=== PATIENT | male | born 1955 | race Caucasian/White ===

== ENCOUNTER 2023-11-17 06:28 | Day surgery (SDC) | payer OTHER, SELFPAY ==
[2023-11-03 08:12] VITALS: BMI 24.7
[2023-11-03 09:01] LABS: Hematocrit 45.4 % (39.0-52.0); Hemoglobin 14.9 g/dL (13.0-18.0); Mean Corp Hgb Conc. 32.8 g/dL (33.0-37.0); Mean Corpuscular Hgb 30.3 pg (27.0-31.0); Mean Corpuscular Volume 92.5 fL (80.0-94.0); Mean Platelet Volume 9.3 fL (7.4-10.4); Platelet Count 218 10^3/uL (130-400); Red Blood Cell Count 4.91 10^6/uL (4.70-6.10); Red Cell Dist. Width 11.9 % (11.5-14.5); White Blood Cell Count 4.1 10^3/uL (4.8-10.8)
[2023-11-03 09:02] LABS: Urine Albumin Negative (Neg - Trace); Urine Bilirubin Negative (Negative); Urine Character Clear (Clear); Urine Color Yellow; Urine Glucose Negative (Negative); Urine Ketone Negative (Negative); Urine Leukocyte Negative (Negative); Urine Nitrite Negative (Negative); Urine Occult Blood Negative (Negative); Urine Specific Gravity 1.015 (<1.030); Urine Urobilinogen Negative (Neg - 1+)
[2023-11-03 09:09] LABS: INR 0.99; PT 12.9 Sec (11.4-14.6)
[2023-11-03 09:10] LABS: APTT 34.6 Sec (23.4-35.0)
[2023-11-03 09:15] LABS: Blood Urea Nitrogen 30 mg/dl (9-20); Calcium 9.6 mg/dl (8.4-10.2); Carbon Dioxide 27 mmol/L (22-30); Chloride 102 mmol/L (98-107); Estimated Creatinine Clearance 59 ml/min; Glucose 86 mg/dl (70-99); Potassium 4.5 mmol/L (3.5-5.1); Sodium 137 mmol/L (135-145); eGFR > 60.00
--- NOTE | 2023-11-10 08:14 | CM ---
Patient is scheduled for a TURP on 11/17/23. Spoke with patient prior to surgery via telephone to complete case management assessment and assess for discharge planning needs. Patient reports that he lives alone in a two story home. There are four
steps to enter and a flight of steps to the second floor. He currently functions independently. He has no DME and has never had VN services. He has a prescription plan and uses [facility] in [place].
PCP is Krish Walters
Discussed discharge plans. Patient plans to return home at discharge. He will not have anyone staying with him. He has no discharge planning concerns at this time. Discussed possible need for VN services. Patient doesn't feel these services will be
needed and states but if services are needed, he selects VN for services. Patient did state that he is concerned about out of pocket expenses and would want to know VN benefits before accepting services.
Patient states that he lives very close to the hospital and plans to walk to/from the hospital when he has surgery. Surgeon's office told him that he can do this as long as the hospital allows him to walk home after surgery. If not allowed to do
this, he may need to use Uber or Lyft.
[place] text sent to VN liaison, Antonella Melgar, alerting her to surgery date and possible need for VN and request to check benefits.
--- NOTE | 2023-11-12 08:44 | PTCARENOTE ---
Abnormal ECG reviewed by Dr. Lamas; no further actions requested.
--- NOTE | 2023-11-16 14:24 | VNURNOTE ---
Home Health Liaison spoke with patient at 1415 by phone to discuss [facility] nurse visits and possible need following surgery.
Patient has had a catheter in past and does not anticipate need of VN at discharge.
Liaison will continue to follow and offer [facility] at discharge as needed.
[2023-11-17] VITALS (14 sets, daily range): BP systolic 106–132; BP diastolic 55–79; BMI 24.7
[2023-11-17] MEDS: NORMOSOL-R 1000 IV (07:41)
--- NOTE | 2023-11-17 10:55 | W.IMMPOSTOP ---
Surgical Immed Post Op Note
-
Primary Surgeon: Eduardofer
Assisting Surgeon: none
Pre-op Diagnosis:BPH
Post-op Diagnosis: BPH
Procedure Performed: TURP
Anesthesia Type: gen
Specimen / Cultures: prostate chips
Estimated Blood Loss: 100cc
Complications: none
Operative Findings: obstructive prostate
[2023-11-17] MEDS: LR 1000 IV (12:05)
--- NOTE | 2023-11-17 13:16 | PTCARENOTE ---
Pt arrived to [address] [place] [address] s/p [facility]. Pt has 3-way Calix CBI infusing, draining clear, and IVF infusing. Pt states no pain at this time. Pt oriented to call sandra and room, bed locked and in lowest position. Call sandra within reach.
[2023-11-17] MEDS: TYLENOL 650 MG PO (18:26)
[2023-11-17] MEDS: PERCOCET 5/325 1 TABLET PO (20:57)
--- NOTE | 2023-11-17 23:00 | PTCARENOTE ---
Pt arrived to unit from PACU, VSS, on 3L O2, fluids infusing, neurovascular intact PT AAOX3, able to make needs known, denies pain at this time, purewick set up, pt able to void. Pt reportedshe had a purse on previous floor, daughter called at [facility]
and reports she has the purse with her.
[2023-11-18 03:35] VITALS: BP 112/50
[2023-11-18 05:21] LABS: Hemoglobin 11.1 g/dL (13.0-18.0)
[2023-11-18 05:51] LABS: Blood Urea Nitrogen 19 mg/dl (9-20); Calcium 8.4 mg/dl (8.4-10.2); Carbon Dioxide 28 mmol/L (22-30); Chloride 106 mmol/L (98-107); Estimated Creatinine Clearance 59 ml/min; Glucose 118 mg/dl (70-99); Potassium 3.8 mmol/L (3.5-5.1); Sodium 136 mmol/L (135-145); eGFR > 60.00
--- NOTE | 2023-11-18 06:14 | PTCARENOTE ---
CBI clamped at 0600 per order, yellow clear yellow throughout shift
[2023-11-18 07:00] VITALS: BP 101/52
[2023-11-18] MEDS: FLOMAX 0.400000000000000022 MG PO (07:43)
--- NOTE | 2023-11-18 08:39 | W.PN.URO.CBU ---
Today's Communication / Plan
-
TOV
Discharge
Assessment / Plan
-
68M POD 1 s/p TURP
Cal[place]jas out this AM for trial of void
Discharge after voiding without difficulty
Diagnosis
-
Date of Service: November 18, 2023
-
Patient Diagnosis:
BPH
Post Op Day: 1 s/p TURP
Subjective
-
tolerated callejas well
No issues overnight
Objective
-
Vital Signs
Temp Pulse Resp BP Pulse Ox
97.9 F 51 12 101/52 94
11/18/23 07:00 11/18/23 07:00 11/18/23 07:00 11/18/23 07:00 11/18/23 07:00
Intake and Output
11/17/23 11/18/23 11/19/23
06:59 06:59 06:59
Intake Total 1540 / 1540
Output Total 8700 / 8700
Balance -7160 / -7160
Intake:
Oral fluids 1440 / 1440
IV fluids (Total) 100 / 100
normosol 100 / 100
Output:
Urine, Callejas 7000 / 7000
True Urine Output from CBI 1700 / 1700
Laboratory Results
11/18/23 04:43
11/18/23 04:43
Physical Exam
-
General - well developed, well nourished, no acute distress
Chest - clear bilaterally
Abdomen - soft, non-tender
Callejas in place, clear pink
Skin - warm & dry with no rash
Neuro - AOx3, no motor deficits
Extremities - no clubbing, no cyanosis, no edema
--- NOTE | 2023-11-18 10:15 | CM ---
CM following re: discharge planning.
Reviewed pt's chart, met with pt.
Pt is a 68 year old male, admitted with SDC status and primary dx of POD 1 s/p TURP. Per Urology, Calix out this AM for trial of void and pt will be discharged today if voiding without difficulties.
Pt reports he lives alone in a 2SH, 3 steps to enter, has 4 supportive children. Pt described himself as independent in all areas [employer], drives, retired.
Discharge order noted. Pt is aware and he stated he earnest, drive home, his car is parked ion the parking lot.
PCP: Krish Walters
Pharmacy: [facility]
D/C plan: home with no needs. Pt will drive home.
[2023-11-18 11:00] VITALS: BP 123/81
== END 2023-11-18 11:25 | disposition home or self-care (01) ==
LOC: SDS 06:28
PROVIDERS: ATTENDING PHYSICIAN Urology; FAMILY PHYSICIAN Family Medicine
DX: N40.0 Benign prostatic hyperplasia without lower urinary tract symptoms (principal)
CPT/HCPCS: 52601; 88305; 36415; 80048; 81003; 85014; 85018; 85027; 85610; 85730; 93005

== ENCOUNTER → 2023-12-04 15:40 | Outpatient (REF) | payer OTHER, SELFPAY | LOC: HWRAD 15:40 | PROVIDERS: ATTENDING PHYSICIAN Student in an Organized Health Care Education/Training Program | DX: M76.61 Achilles tendinitis, right leg (principal) | CPT/HCPCS: 73610 ==

== ENCOUNTER 2023-12-22 06:39 | Inpatient (IN) | payer OTHER, SELFPAY ==
[2023-12-22] VITALS (28 sets, daily range): BP systolic 10–155; BP diastolic 56–97; BMI 25.0
--- NOTE | 2023-12-22 01:00 | ED.GENMED ---
History of Present Illness
<Devendra Corea MD - Last Filed: 12/22/23 11:37>
General
Chief Complaint: Abdominal Pain
Source: patient
Exam Limitations: none
Time Seen by Provider: 12/22/23 00:53
Nursing documentation reviewed up to this point in time: agreed with
Travel History
Have you had any contact with someone who has COVID-19?: No
Do you have any symptoms of coronavirus? Fever > 100 degrees, chills, cough, shortness of breath, sore throat, loss of taste or smell, muscle aches, or headache?: No
History of Present Illness
History of Present Illness:
Patient with history of colectomy secondary to colon cancer 15 years ago and recent TURP procedure 5 weeks ago, presents to ED secondary to sudden onset of left-sided abdominal pain with distention, starting 12 hours ago. Abdominal pain described
as sharp, nonradiating, without any alleviating or exacerbating factors. Denies fever or chills. Denies vomiting. Denies diarrhea. Denies trauma. Denies back pain. Denies difficulty with urination. Denies previous history of similar symptoms.
Denies recent change in medications or diet.
Past History
<Devendra Corea MD - Last Filed: 12/22/23 11:37>
Past History
ED Past Medical History: Asthma and Other (Patient has had a history of urinary retention from previous surgeries.)
ED Past Surgical History: Bowel resection (for colon CA) and Other
Social History
Tobacco: Non-smoker
Alcohol: Occasional
Personal:
Living: alone
Employment: Employed
Family History
Family History: Other
Review of Systems
<Devendra Corea MD - Last Filed: 12/22/23 11:37>
Review of Systems
Allergies reviewed?: Yes
All Other Systems: ROS reviewed and negative except as documented in HPI and ROS
Constitutional: Reports no symptoms
EENT: Reports no symptoms
Respiratory: Reports no symptoms
Cardiac: Reports no symptoms
ABD/GI: Reports abdominal pain; Denies nausea, vomiting or diarrhea
Musculoskeletal: Reports no symptoms
Skin: Reports no symptoms
Neurological: Reports no symptoms
Phy Exam
<Devendra Corea MD - Last Filed: 12/22/23 11:37>
Physical Exam
Physical Exam:
Physical Exam
General: moderate painful distress, not acutely ill. afebrile
Head: nc/at. eomi
Neck: supple. normal range of motion.
Heart: s1/s2 regular rate and rhythm, no murmur. equal radial pulses.
Lungs: no acute respiratory distress. clear bilaterally
Abdomen: normal bowel sounds. moderate LLQ tenderness to palpation with guarding. mild distention noted.
Neuro: alert and oriented. no focal neurological deficits
Skin: no rash
Psychiatric: well kept. interactive and cooperative
Extremities: no edema. no calf tenderness
Course
<Devendra Corea MD - Last Filed: 12/22/23 11:37>
Orders/Labs/Results
Orders:
Orders
12/22/23 00:56
HYDROmorphone [Dilaudid] 0.5 mg IV NOW STA
CR Obstruct Series W/pa Chest Urgent
Comment:
Reason For Exam: abd pain
12/22/23 00:57
0.9% Sodium Chloride 500 ml [Nss] 500 ml IV BOLUS
12/22/23 01:10
Complete Blood Count/With Diff Urgent
Comprehensive Metabolic Panel Urgent
Lactic Acid Q4H
Comment: CANCEL 2nd LACTIC ACID IF 1st LACTIC ACID IS LESS THAN 2
12/22/23 01:36
CT Abd/pel W Iv And Oral Contr Urgent
Comment:
Reason For Exam: abdominal pain w bloating
Iohexol [Omnipaque] See Protocol PO NOW STA
12/22/23 01:38
HYDROmorphone [Dilaudid] 0.5 mg IV NOW STA
12/22/23 04:37
HYDROmorphone [Dilaudid] 0.5 mg IV NOW STA
Ondansetron Injectable [Zofran] 4 mg IV NOW STA
12/22/23 Breakfast
NPO
Allow oral meds: No
Allow clear liquids: No
NPO with Ice Chips: No
12/22/23 06:27
Admit/Transfer Patient As Directed
Co-Sign Provider:
Level of Care: Inpatient admission
Assign to:: Medical/Surgical
Physician / Group: dr morris
Diagnosis: sigmoid volvulus
Reason for Hospitalization: ng tube, poss OR
Expected length of stay greater than two midnights?: Yes
ELOS- Estimated Length of Stay in days: 4
I certify the patient meets the requirements for IP care: Yes
12/22/23 06:31
Code Status As Directed
Resuscitation Status: Full Code
12/22/23 07:34
0.9% Sodium Chloride 1000 ml [Nss] 1,000 ml IV 125 mls/hr
HYDROmorphone [Dilaudid] 0.5 mg IV Q2HPRN PRN
Ondansetron Injectable [Zofran] 4 mg IV Q6HPRN PRN
12/22/23 07:34
Activity As Directed
Activity Level: Out of Bed-Early Mobility
Bladder Scan As Directed
Follow Bladder Retention/Intermittent Cath Algorithm?: Yes
Frequency: Per Retention Algorithm
Intake/ Output As Directed
Frequency: Per unit guidelines
NG Tube [Gastrointestinal Tubes] As Directed
Type: [place] sump
To suction?: Yes
Type of suction: Low intermittent
Irrigate tube?: Yes
Irrigant: Tap Water
Frequency: Q4H
Amount in mls: 30
Irrigation Directions: Irrigate Q4H and PRN
Pneumatic Compression Sleeves As Directed
Type: Thigh high
Straight Cath As Directed
Frequency: Per Retention Algorithm
Additional Instructions: straight cath as needed per acute urinary retention algorithm for 24 hrs
Additional Instructions: for bladder scan greater than 400 mL
Vital Signs As Directed
Frequency: Per unit guidelines
DX Deep Vein Thrombosis Video Routine
12/22/23 08:00
Phenol 1.4% [place] [Chloraseptic/Sore Throat [place]] See Dose Instructions PO Q2HPRN PRN
12/23/23 06:00
Complete Blood Count/No Diff IN AM
Comprehensive Metabolic Panel IN AM
Abnormal Lab Results
12/22/23
01:10
Absolute Neuts (auto) 7.1 H 10^3/uL
(1.4-6.5)
Absolute Lymphs (auto) 1.0 L 10^3/uL
(1.2-3.4)
Neutrophils % 81.8 H %
(42.2-75.2)
Lymphocytes % 11.4 L %
(20.5-51.1)
BUN 25 H mg/dl
(9-20)
Glucose 119 H mg/dl
(70-99)
12/22/23 01:10
12/22/23 01:10
Vital Signs
Initial and Last Documented VS:
Initial Vital Signs
Temp Pulse Resp BP Pulse Ox
97.8 F 89 18 122/87 97
12/22/23 00:22 12/22/23 00:22 12/22/23 00:22 12/22/23 00:22 12/22/23 00:22
Last Documented Vital Signs
Temp Pulse Resp BP Pulse Ox
97 F 82 10 136/82 98
12/22/23 10:40 12/22/23 11:15 12/22/23 11:15 12/22/23 11:15 12/22/23 11:15
<Derrick Hunter, DO - Last Filed: 12/22/23 06:07>
Orders/Labs/Results
Orders:
Orders
12/22/23 00:56
HYDROmorphone [Dilaudid] 0.5 mg IV NOW STA
CR Obstruct Series W/pa Chest Urgent
Comment:
Reason For Exam: abd pain
12/22/23 00:57
0.9% Sodium Chloride 500 ml [Nss] 500 ml IV BOLUS
12/22/23 01:10
Complete Blood Count/With Diff Urgent
Comprehensive Metabolic Panel Urgent
Lactic Acid Q4H
Comment: CANCEL 2nd LACTIC ACID IF 1st LACTIC ACID IS LESS THAN 2
12/22/23 01:36
CT Abd/pel W Iv And Oral Contr Urgent
Comment:
Reason For Exam: abdominal pain w bloating
Iohexol [Omnipaque] See Protocol PO NOW STA
12/22/23 01:38
HYDROmorphone [Dilaudid] 0.5 mg IV NOW STA
12/22/23 04:37
HYDROmorphone [Dilaudid] 0.5 mg IV NOW STA
Ondansetron Injectable [Zofran] 4 mg IV NOW STA
12/22/23 Breakfast
NPO
Allow oral meds: No
Allow clear liquids: No
NPO with Ice Chips: No
12/22/23 06:27
Admit/Transfer Patient As Directed
Co-Sign Provider:
Level of Care: Inpatient admission
Assign to:: Medical/Surgical
Physician / Group: dr morris
Diagnosis: sigmoid volvulus
Reason for Hospitalization: ng tube, poss OR
Expected length of stay greater than two midnights?: Yes
ELOS- Estimated Length of Stay in days: 4
I certify the patient meets the requirements for IP care: Yes
12/22/23 06:31
Code Status As Directed
Resuscitation Status: Full Code
12/22/23 07:34
0.9% Sodium Chloride 1000 ml [Nss] 1,000 ml IV 125 mls/hr
HYDROmorphone [Dilaudid] 0.5 mg IV Q2HPRN PRN
Ondansetron Injectable [Zofran] 4 mg IV Q6HPRN PRN
12/22/23 07:34
Activity As Directed
Activity Level: Out of Bed-Early Mobility
Bladder Scan As Directed
Follow Bladder Retention/Intermittent Cath Algorithm?: Yes
Frequency: Per Retention Algorithm
Intake/ Output As Directed
Frequency: Per unit guidelines
NG Tube [Gastrointestinal Tubes] As Directed
Type: [place] sump
To suction?: Yes
Type of suction: Low intermittent
Irrigate tube?: Yes
Irrigant: Tap Water
Frequency: Q4H
Amount in mls: 30
Irrigation Directions: Irrigate Q4H and PRN
Pneumatic Compression Sleeves As Directed
Type: Thigh high
Straight Cath As Directed
Frequency: Per Retention Algorithm
Additional Instructions: straight cath as needed per acute urinary retention algorithm for 24 hrs
Additional Instructions: for bladder scan greater than 400 mL
Vital Signs As Directed
Frequency: Per unit guidelines
DX Deep Vein Thrombosis Video Routine
12/22/23 08:00
Phenol 1.4% [place] [Chloraseptic/Sore Throat [place]] See Dose Instructions PO Q2HPRN PRN
12/23/23 06:00
Complete Blood Count/No Diff IN AM
Comprehensive Metabolic Panel IN AM
Abnormal Lab Results
12/22/23
01:10
Absolute Neuts (auto) 7.1 H 10^3/uL
(1.4-6.5)
Absolute Lymphs (auto) 1.0 L 10^3/uL
(1.2-3.4)
Neutrophils % 81.8 H %
(42.2-75.2)
Lymphocytes % 11.4 L %
(20.5-51.1)
BUN 25 H mg/dl
(9-20)
Glucose 119 H mg/dl
(70-99)
12/22/23 01:10
12/22/23 01:10
Vital Signs
Initial and Last Documented VS:
Initial Vital Signs
Temp Pulse Resp BP Pulse Ox
97.8 F 89 18 122/87 97
12/22/23 00:22 12/22/23 00:22 12/22/23 00:22 12/22/23 00:22 12/22/23 00:22
Last Documented Vital Signs
Temp Pulse Resp BP Pulse Ox
97 F 82 10 136/82 98
12/22/23 10:40 12/22/23 11:15 12/22/23 11:15 12/22/23 11:15 12/22/23 11:15
<Devendra Corea MD - Last Filed: 12/22/23 11:37>
MDM/Problems Addressed
MDM/Problems Addressed:
X-ray: air fluid levels with dilated loops of bowel. Will obtain CT abd/pel.
<Derrick Hunter DO - Last Filed: 12/22/23 06:07>
*Critical Care Note
Total Time (30-74mins, 75-104mins- exclusive of procedures): Not Applicable
<Derrick Hunter DO - Last Filed: 12/22/23 06:07>
Update Note
Update Note:
Care of patient was transitioned pending CT. Radiology called indicating concern for sigmoid volvulus. At this time, discussed case with colorectal surgery. He assessed the CT scan. Although patient has had no vomiting, the bladder looks
distended. He recommended NG tube and keeping n.p.o. Will admit
ED Attending Note
<Devendra Corea MD - Last Filed: 12/22/23 11:37>
-
Portions of this chart may have been created with voice recognition software.� Occasional wrong word or��sound alike� substitutions may have occurred due to the inherent limitations of voice recognition software.
Discharge Plan
Departure
Patient Disposition: Admit
Date of Disposition: 12/22/23
Time of Disposition: 06:06
Admit to: Med/Surg
Presentation/result/management discussed w/ accepting MD/DO: Colorectal Surgery
Discharge Problem:
Volvulus of sigmoid colon
Interventions
Interventions:
*Risk Screen - Suicide Last Done: 12/22/23 00:22
*General Assessment Last Done: 12/22/23 00:22
*Neglect/Abuse Screening Last Done: 12/22/23 00:22
ED- Fall Risk Assessment Last Done: 12/22/23 00:22
*ED COVID-19 Vaccine History Last Done: 12/22/23 00:22
*Nursing Disposition Last Done: 12/22/23 09:20
AL-Sdocys-Ocbfycgkhd Assessment Last Done: 12/22/23 06:55
Discharge Date and Time
Discharge Date/Time: 12/22/23 09:27
[2023-12-22] MEDS: DILAUDID 0.5 MG IV ×6 (01:11→23:57)
[2023-12-22] MEDS: NSS 500 IV (01:11)
[2023-12-22 01:31] LABS: % Basophils 0.3 % (0-2); % Immature Granulocytes 0.2 % (0-0.5); % Lymphocytes 11.4 % (20.5-51.1); % Monocytes 6.3 % (1.7-9.3); % Neutrophils 81.8 % (42.2-75.2); Absolute Monocytes 0.5 10^3/uL (0.1-0.6); Absolute Neutrophils 7.1 10^3/uL (1.4-6.5); Hematocrit 42.6 % (39.0-52.0); Hemoglobin 14.6 g/dL (13.0-18.0); Mean Corp Hgb Conc. 34.3 g/dL (33.0-37.0); Mean Corpuscular Hgb 30.2 pg (27.0-31.0); Mean Platelet Volume 9.2 fL (7.4-10.4); Nucleated Red Blood Cells % 0 % (-); Platelet Count 184 10^3/uL (130-400); Red Blood Cell Count 4.84 10^6/uL (4.70-6.10); Red Cell Dist. Width 12.2 % (11.5-14.5); White Blood Cell Count 8.6 10^3/uL (4.8-10.8)
[2023-12-22 01:44] LABS: Lactic Acid 1.6 mmol/L (0.7-2.0)
[2023-12-22] MEDS: OMNIPAQUE 50 ML PO (01:47)
[2023-12-22 01:50] LABS: ALT (SGPT) 17 U/L (0-50); AST (SGOT) 29 U/L (17-59); Alkaline Phosphatase 89 U/L (38-126); Blood Urea Nitrogen 25 mg/dl (9-20); Calcium 9.6 mg/dl (8.4-10.2); Carbon Dioxide 24 mmol/L (22-30); Chloride 102 mmol/L (98-107); Estimated Creatinine Clearance 59 ml/min; Glucose 119 mg/dl (70-99); Sodium 137 mmol/L (135-145); Total Bilirubin 0.8 mg/dl (0.2-1.3); Total Protein 6.5 g/dl (6.3-8.2); eGFR > 60.00
[2023-12-22] MEDS: ZOFRAN 4 MG IV (04:45)
--- NOTE | 2023-12-22 06:36 | HPS.HSE ---
Addendum entered and electronically signed by VIRAL Garcia 01/07/24 19:09:
medication dosage were not known at time of H+P.
Original Note:
Family Physician
-
Family Physician: Krish Walters
Chief Complaint
-
abd pain, bloat
History of Present Illness
68 yo male with history of colectomy secondary to colon cancer 15 years ago and recent TURP procedure 5 weeks ago, presents to ED secondary to sudden onset of left-sided abdominal pain with distention, starting 12 hours ago. Abdominal pain
described as sharp, nonradiating, without any alleviating or exacerbating factors. Denies fever or chills. Denies vomiting. Denies diarrhea. Denies trauma. Denies back pain. Denies difficulty with urination. Denies previous history of similar
symptoms. Denies recent diet changes. Had first f/u appt with urologist thursday and started on myrbetric. Only took one dose 12/20
Normal BM 12/19 none since. No flatus.
CT abd shows sigmoid volvulus/close loop colonic obstruction
NG tube placed per surgery recommendation (not much out yet)
Medical History
Past Medical History
Past Medical History: Reports Cancer (colon cancer, skin ca) and Other (ADHD,BPH)
Past Surgical History: Reports Bowel Resection (early for colon ca) and Urological (11/17/23 TURP)
Additional Past Surgical History:
MOHS surgery for skin ca (many)
Social History
Alcohol: None
Drug: None
Personal:
Family History
Family History: Cancer (mother colon ca)
Allergies / Home Medications
Allergies reflects when Allergies were last updated in [employer].
Home Medications with original date entered in [employer]
Allergy/Medication List:
Allergies
Allergy/AdvReac Type Severity Reaction Status Date / Time
No Known Allergies Allergy Verified 11/17/23 07:25
Home Medications
med rec not completed at this time
Concerta
Myrbetriq
Review of Systems
-
History Source: Patient
A 12 point ROS was completed and negative except as noted: Yes
Constitutional: Reports See HPI
EENT: Reports No Symptoms
Respiratory: Reports No Symptoms
Cardiac: Reports No Symptoms
Abdomen/GI: Reports Abdominal Pain and Other (abd distention)
: Reports No Symptoms
Musculoskeletal: Reports No Symptoms
Skin: Reports No Symptoms
Neurological: Reports No Symptoms
Endocrine: Reports No Symptoms
Hematologic/Lymphatic: Reports No Symptoms
Psych: Reports No Symptoms
Physical Exam
Vital Signs
Vital Signs
Temp Pulse Resp BP Pulse Ox
97.8 F 89 18 135/94 96
12/22/23 00:22 12/22/23 00:22 12/22/23 00:22 12/22/23 05:00 12/22/23 05:45
Physical Exam
General: Well Developed, Well Nourished, Appears in Distress and Pain
HEENT: NormoCephalic and Moist mucous membranes
Respiratory: Clear and Non Labored Respirations
Cardiac: S1/S2 and Regular Rhythm
Breast: Deferred by me
GI: Tender, Distended and Other (minimal bowel sounds)
Rectal: Deferred by Provider
Genito-urinary: Deferred by me
Musculoskeletal: No Clubbing and No Cyanosis
Skin: Warm and Dry
Neuro: Awake, Alert, Oriented, AO x 3 and No Motor Deficits
Hematologic/Lymphatic: No Lymphadenopathy
Psych: Calm and Intact Judgment/Insight
Laboratory Results
-
12/22/23 01:10
12/22/23 01:10
Laboratory Results
Lactic Acid Cancelled 12/22/23 05:00
Total Bilirubin 0.8 mg/dl (0.2-1.3) 12/22/23 01:10
AST 29 U/L (17-59) 12/22/23 01:10
ALT 17 U/L (0-50) 12/22/23 01:10
Alkaline Phosphatase 89 U/L (38-126) 12/22/23 01:10
Data Reviewed
-
CT Scan: Report Reviewed by me and Discussed with Physician
Impression/Plan
-
IMPRESSION:
sigmoid volvulus
PLAN:
Admit to Service of Dr Vogt
#sigmoid volvulus
-pt states he had sigmoid colon resection Early for colon ca- has not had any issues since this time
-NPO
-ng tube to intermittent suction
-Pain control: dilaudid prn
-Nausea med prn
other past hx:
-BPH s/p recent TURP 4/9-hold myrbetric
-ADHD-hold meds
DVT proph: scd fo now, anticoagulation deferred to surgeon
Full code
[2023-12-22] MEDS: NSS 1000 IV (07:42)
--- NOTE | 2023-12-22 07:42 | CON.CRS ---
Medical History
-
History of Present Illness:
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 This never
happened before. The symptoms started with bloating yesterday afternoon and progressed throughout the evening. He then developed abdominal pain and went to the [place] ED. He denied any N/V, until he started drinking oral contrast for his CT
scan, he developed some nausea but did not vomit. He has not passed any flatus or BMs since yesterday. Denies any chest pain or shortness of breath. At baseline, he has urinary urgency due to his recent TURP. His last colonoscopy was done 11/[address] Garzon via open access, which was normal and recommended to be repeat in 5 years.
In the ED, his WBC 8.6, Cr 1.3, vitals WNL. A CT scan was done showing sigmoid volvulus with gastric distention and retention of oral contrast in the stomach. An NG tube was placed.
Past Medical History
Past Medical History: Other (as above)
Past Surgical History: Other (as above)
Social History
Tobacco: Former Smoker (quit 40 yrs ago)
Alcohol: None
Drug: None
Personal:
Employment: Retired
Family History
Family History: Other (mom - colon CA)
Allergies / Home Medications
Allergy/AdvReac Type Severity Reaction Status Date / Time
No Known Allergies Allergy Verified 11/17/23 07:25
�Medication �Instructions �Recorded �Confirmed �Type
cholecalciferol (vitamin D3) 25 2,000 unit PO DAILY Supplement 09/19/20 11/17/23 History
mcg (1,000 unit) capsule (Vitamin
D3)
EO-vgkahwaevjs-ubptvu ox-Zn ER 500 1 tab PO DAILY 11/10/23 11/17/23 History
mcg-750 mg-1.5 mg-25 mg tablet,ER
methylphenidate HCl 27 mg 27 mg PO DAILY Neurological 11/10/23 11/17/23 History
tablet,extended release 24 hr Condition
(Concerta)
tamsulosin 0.4 mg capsule (Flomax) 0.4 mg PO DAILY Urinary Issue 11/10/23 11/17/23 History
oxybutynin chloride 10 mg 10 mg PO DAILY PRN frequent 11/18/23 Rx
tablet,extended release 24 hr urination #30 tabs
Review of Systems
-
All other systems: Negative unless noted
A 10 point review of systems was completed, and was negative except as per HPI.
Physical Exam
Vital Signs
Temp 98.5 F 12/22/23 06:55
Pulse 65 12/22/23 06:55
Resp Rate 18 12/22/23 06:55
Blood pressure 135/94 12/22/23 06:55
SaO2 90 12/22/23 06:55
12/21/23 12/22/23 12/23/23
06:59 06:59 06:59
Actual Weight 81.3 kg
Body Mass Index (BMI) 25.0
Lab Results / Allergies
12/22/23 01:10
12/22/23 01:10
WBC 8.6 10^3/uL (4.8-10.8) 12/22/23 01:10
Hgb 14.6 g/dL (13.0-18.0) 12/22/23 01:10
Hct 42.6 % (39.0-52.0) 12/22/23 01:10
Plt Count 184 10^3/uL (130-400) 12/22/23 01:10
Abs Immat Gran (auto) 0.0 10^3/uL (0-0.05) 12/22/23 01:10
Neutrophils % 81.8 % (42.2-75.2) H 12/22/23 01:10
Allergy/AdvReac Type Severity Reaction Status Date / Time
No Known Allergies Allergy Verified 11/17/23 07:25
Physical Exam
General: Well Developed, Well Nourished and No Apparent Distress (uncomfortable due to NGT)
HEENT: Normocephalic and Atraumatic
Respiratory: Non Labored Respirations
GI: Soft, Tender (moderately tender on the left niles-abdomen) and Distended (moderately distended)
Skin: Warm and Dry
Neuro: AO x 3
Data Reviewed
-
CT Scan: Image Personally Visualized and interpreted, Report Reviewed by me, Discussed with Physician (Dr. Ibarra, ED providers) and Discussed with Patient
Labs: Labs Reviewed by me and Discussed with Patient
Assessment / Plan
-
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
CT scan. Last colonoscopy was done 11/[address] Garzon via open access, which was normal and recommended to be repeat in 5 years. WBC 8.6, Cr 1.3, lac 1.6, vitals WNL. A CT scan was done showing sigmoid volvulus with gastric distention and
retention of oral contrast in the stomach. An NG tube was placed.
�No signs of hemodynamic instability or peritonitis on exam; no need for urgent surgery, however, due to the tenderness on exam, he needs prompt decompression via sigmoidoscopy; discussed with Dr. Ibarra who will look into scheduling
�Continue n.p.o. with IVF; continue NGT to LCS, follow-up x-ray for placement
� Continue pain control; serial abdominal exams
� Okay for DVT PPx
� OOB/IS
� Discussed at length with patient; explained the pathophysiology of sigmoid volvulus and possible need for urgent surgery; explained that he does not need emergency surgery at this time, but he is in need of prompt detorsion via sigmoidoscopy as
there is risk of developing colonic ischemia; explained that if he clinically worsens or if detorsion fails, he will need urgent sigmoidectomy with likely colostomy; however, if we are able to detorse the colon and allow his colon to decompress, I
would recommend sigmoidectomy this admission due to the high likelihood of recurrence; explained that after decompression of the colon, there is still a risk of needing an ostomy, but it is significantly lower; pt understood and was agreeable with
the plan
--- NOTE | 2023-12-22 07:50 | EDRN ---
the pt was received from previous shift manager RN, the pt is resting in stretcher in the lowest position, side rails up x1, HOB elevated, NSR in the 70's, last BP 145/86 (104), the pt was on 2L NC however the pts took it off and stated to this RN
that he does not want it on, the pts Sp02 dips to 87-90% and then comes back up to 94%, no c/o SOB, no s/s of respiratory distress, the pt currently has an NG tube in the right nare to low intermittent suction, the pt received dilaudid for abdominal
pain, surgeon was at the pts bedside speaking to the pt, the pt was educated by this RN about NPO status, the pt also stated to this RN that he needed to use the bathroom, the pt was unhooked from the monitor and the pt was able to ambulate to the
bathroom and back to the stretcher with no issues, will continue to monitor the pt closely
--- NOTE | 2023-12-22 07:58 | EDRN ---
IVF hung and running at 125cc/hour via LAC #20 PIV, will continue to monitor the pt closely
--- NOTE | 2023-12-22 08:23 | CON.GI ---
Addendum entered and electronically signed by Shivani Ibarra MD 12/22/23 09:59:
The KIT PLANNER or PA's note was reviewed and I agree with the note.
Comment:
Pt is a 68 y/o with a hx of colon cancer, sigmoid resection in 2007. He has been having some increased constipation but does have bms. He then had no bm x 1 day and abdominal pain on the LLQ, no fevers, no vomiting. I did review his CT images and
report and it appears that he has a probable sigmoid volvulus with rectal decompression. He notes starting Mybyrtec after a TURP approximately 1 month ago. He is having some urinary retention as well.
abd: distended, decreased bowel sounds, LLQ tenderness
impression:
abd pain
acute volvulus
constipation
plan:
Dr. Vogt spoke directly with me regarding urgent need for decompression.
Pt for flex sig with decompression now
keep electrolytes stable
NGT in place for now
anti-emetics
would hold mybyrtec
Original Note:
Consultation
-
Date/Time Consultation Requested: 12/22/23 0730
Date/Time Consultation Performed: 12/22/23 0820
Requesting Provider: Dov Vogt MD
Performing Provider: VIRAL Alvarado, Shivani Ibarra MD
Reason for Consultation: distention/abdominal pain
Medical History
Chief Complaint / HPI
Chief Complaint: abdomfinal pain, distention
History of Present Illness:
Pt is a 68yo with history of skin CA with prior moh's surgery, recent TURP 11/17/23 and achilles injury, umbilical hernia repair and colon CA with resection. In review of records pt had colonoscopy 2007 noted 4 mm AC adenomatous polyp and 2 cm
pedunculated sigmoid polyp. There was adeno CA in head of polyp but stalk was clear of cancer. He has sigmoid colon resection in February [address] De Jesus at [facility] with no issues since time. He admits to decreased activity over
last few weeks and recovery from Achillies issues and TURP with increased constipation. He has been taking Miralax, Metamucil and Colace. He had 1-2 stools on Thursday and possible small on Thursday AM then around noon began with bloating and
increased abdominal pain worse in LLQ. Symptoms were severe and presents to ER. He completed CT with IV and oral contrast and after imaging and drinking contrast developed nausea and vomiting. NGT was placed in ER with brownish drainage. Per ER
noted concern for sigmoid volvulus. Asked to eval for flex for decompression. No hx anticoagulation use, or recent NSAIDS. Pt has had routine follow up colonscopy with last 11/[address] Garzon noted colon normal. [address] Santoro noted 3
diminutive polyps TC an cecum, patent end to end colon colonic anastamosis with healthy mucosa, IH, bx SSA.
Pt currently admits severe diffuse abdominal pain and bloating. Worse LLQ with marked distention. He also admits to new dysphagia with solid over last few months. Worse in afternoon. No prior EGD. He also has GERD with PRN Omeprazole use.
He denies blood or black in stools.
Past Medical History
Past Medical History: Cancer (colon CA with sigmoid resection no chemo and radiation needed, skin CA)
Past Surgical History: Bowel Resection, Urological (TURP in November 2023 ) and Other (mohs surgery)
Social History
Tobacco: Former Smoker (quit 40 years ago)
Alcohol: Occasional (rare)
Drug: Marijuana (rare gummies)
Living: With Family
Employment: Retired
Family History
Family History: Other (mother with colon CA in 70's. father with hx bowel obstruction)
Allergies / Home Medications
Allergy/AdvReac Type Severity Reaction Status Date / Time
No Known Allergies Allergy Verified 11/17/23 07:25
�Medication �Instructions �Recorded
acetaminophen 500 mg tablet 500 - 1,000 mg PO BIDPRN PRN mild 12/22/23
(Tylenol Extra Strength) pain
albuterol sulfate 90 mcg/actuation 2 puff inhalation R Q4HPRN PRN sob 12/22/23
aerosol inhaler
cholecalciferol (vitamin D3) 50 50 mcg PO DAILY 12/22/23
mcg (2,000 unit) tablet
docusate sodium 50 mg capsule 50 mg PO BID PRN constipation 12/22/23
melatonin 3 mg tablet 3 mg PO HS PRN sleep 12/22/23
methylphenidate HCl 27 mg 27 mg PO DAILY 12/22/23
tablet,extended release 24 hr
mirabegron 50 mg tablet,extended 50 mg PO DAILY 12/22/23
release 24 hr (Myrbetriq)
niacinamide 500 mg tablet 500 mg PO DAILY 12/22/23
Review of Systems
-
History Source: Patient
Constitutional: Reports Weight Gain
EENT: Reports No Symptoms
Respiratory: Reports No Symptoms
Cardiac: Reports No Symptoms
Abdomen/GI: Reports Abdominal Pain, Nausea, Vomiting, Constipated and Other (distention)
: Reports Frequency, Urgency and Other (s/p recent TURP)
Musculoskeletal: Reports No Symptoms
Skin: Reports No Symptoms
Neurological: Reports Weakness
Endocrine: Reports No Symptoms
Hematologic/Lymphatic: Reports No Symptoms
Vital Signs
Temp Pulse Resp BP Pulse Ox
98.5 F 65 18 135/94 90
12/22/23 06:55 12/22/23 06:55 12/22/23 06:55 12/22/23 06:55 12/22/23 06:55
Physical Exam
Exam
General: Other (some distress with distention and abdominal pain)
HEENT: Normocephalic and Anicteric
Respiratory: Clear
Cardiac: Regular Rhythm
GI: Tender, Distended (with mild guarding) and Other (NGT with brownish drainage)
Musculoskeletal: No Clubbing and No Cyanosis
Skin: Warm and Dry
Neuro: Awake, Alert and AO x 3
Psych: Calm
Results
WBC 8.6 10^3/uL (4.8-10.8) 12/22/23 01:10
Hgb 14.6 g/dL (13.0-18.0) 12/22/23 01:10
Hct 42.6 % (39.0-52.0) 12/22/23 01:10
MCV 88.0 fL (80.0-94.0) 12/22/23 01:10
Plt Count 184 10^3/uL (130-400) 12/22/23 01:10
Absolute Neuts (auto) 7.1 10^3/uL (1.4-6.5) H 12/22/23 01:10
Sodium 137 mmol/L (135-145) 12/22/23 01:10
Potassium 4.0 mmol/L (3.5-5.1) 12/22/23 01:10
Chloride 102 mmol/L (98-107) 12/22/23 01:10
Carbon Dioxide 24 mmol/L (22-30) 12/22/23 01:10
BUN 25 mg/dl (9-20) H 12/22/23 01:10
Creatinine 1.3 mg/dL (0.7-1.3) 12/22/23 01:10
Calcium 9.6 mg/dl (8.4-10.2) 12/22/23 01:10
Total Bilirubin 0.8 mg/dl (0.2-1.3) 12/22/23 01:10
AST 29 U/L (17-59) 12/22/23 01:10
ALT 17 U/L (0-50) 12/22/23 01:10
Alkaline Phosphatase 89 U/L (38-126) 12/22/23 01:10
Diagnostic Image Results:
12/21 CT A/p IV and oral concern for sigmoid volulus - night read final pending
12/21 obstr series pending
Prior GI Procedures:
EGD: none
Colonoscopy: 11/[address] Garzon noted colon normal.
[address] Santoro noted 3 diminutive polyps TC an cecum, patent end to end colon colonic anastamosis with healthy mucosa, IH, bx SSA.
Assessment / Plan
-
Pt is a 68yo with history of skin CA with prior moh's surgery, recent TURP 11/17/23 and achilles injury, umbilical hernia repair and colon CA with resection. In review of records pt had colonoscopy 2007 noted 4 mm AC adenomatous polyp and 2 cm
pedunculated sigmoid polyp. There was adeno CA in head of polyp but stalk was clear of cancer. He has sigmoid colon resection in February [address] De Jesus at [facility] with no issues since time. He admits to decreased activity over
last few weeks and recovery from Achillies issues and TURP with increased constipation. He has been taking Miralax, Metamucil and Colace. He had 1-2 stools on Thursday and possible small on Thursday AM then around noon began with bloating and
increased abdominal pain worse in LLQ. Symptoms were severe and presents to ER. He completed CT with IV and oral contrast and after imaging and drinking contrast developed nausea and vomiting. NGT was placed in ER with brownish drainage. Per ER
noted concern for sigmoid volvulus. Asked to eval for flex for decompression. No hx anticoagulation use, or recent NSAIDS. Pt has had routine follow up colonscopy with last 11/[address] Garzon noted colon normal. [address] Santoro noted 3
diminutive polyps TC an cecum, patent end to end colon colonic anastamosis with healthy mucosa, IH, bx SSA.
-abdominal distention/pain constipation with concern for sigmoid volvulus
-hx colon CA with prior sigmoid resection
-recent TURP and Achilles injury
-recent constipation
-dysphagia
other med problems:
-skin CA- mohs procedure
-umbilical hernia repair
PLAN:
Plan for flex with decompression today
NPO
cont NGT decompression
await final reading on imaging completed in ER
appreciate surgical eval
OP follow up for complaints of new dysphagia
pain control per hospitalist
-
-
Thank you for consultation and allowing me to participate in the patient's care. Please call the carbon printer GI physician during the after hours with any questions or concerns.
--- NOTE | 2023-12-22 08:25 | EDRN ---
this RN called the receiving unit and notified them that paper report was going to be tubed up
[2023-12-22] MEDS: DILAUDID 1 MG IV (09:16)
--- NOTE | 2023-12-22 09:19 | EDRN ---
GI doc at the pts bedside speaking with the pt
--- NOTE | 2023-12-22 09:27 | EDRN ---
GI RN called and this RN gave verbal report
--- NOTE | 2023-12-22 09:40 | WOUNDNOTE ---
SHAHBAZ RN NOTE: Stoma sited patient all quadrants as requested. Identified rectus muscle avoided creases and scars, assessed lying and sitting. LUQ marked 6cm from midline and 5cm proximal from umbilical line. LLQ marked 6cm from midline and 2cm distal
from umbilical line. RUQ marked 6cm from midline and 4.5cm proximal from umbilical line. RLQ marked 6.5cm from midline and 2cm distal from umbilical line. Patient aware that surgeon has final decision during surgery, answered all questions. Will
follow post op as needed.
--- NOTE | 2023-12-22 11:29 | SUR.PHASEI ---
patient in pacu post sigmoidoscopy for volvulus - darkened tissue noted, to pacu - await OR, sleepy, c/o some abdominal discomfort - better since decompression tube placed - skin cool to touch, patient shivers, elbows and legs mottled color. NG
right nare - placed to intermittent wall suction - brown return - fecal smell. decompression tube taped to buttocks, end placed in bag - no drainage at this time. difficulty obtaining BP with shivers. Warm covers on. Dr Garzon at bedside -
explains findings and need for surgery. Dr Ibarra also visits - explains findings. Holding patient in PACU until OR room available. Type and screen drawn and sent.
--- NOTE | 2023-12-22 11:36 | W.PN.UPDATE ---
Update Note
Progress Note Update
Flex sig: acute twist at 20 cm c/w volvulus, scope passed through this area and decompression of air. Mucosa appeared necrotic, decompression tube place.
Dr. Garzon and Sin aware of results as is patient and is aware surgery likely due to mucosal findings.
will sign off call with questions
--- NOTE | 2023-12-22 11:44 | SUR.PHASEI ---
daughter arrives - visits in pacu. patient attempting to use urinal.
--- NOTE | 2023-12-22 11:45 | W.PN.UPDATE ---
Update Note
Progress Note Update
I saw him in the PACU after the sigmoidoscopy and personally reviewed the findings and images with Dr. Ibarra. In the PACU he appears acutely ill and is having abdominal pain. He is distended and moderately tender. His vital signs are normal.
I reviewed the findings and treatment options including surgery today versus trying a bowel prep and surgery tomorrow or the next day. Given the findings on the endoscopy and his clinical exam, I favor a resection as soon as possible. The plan is
for a laparotomy, sigmoid resection and possible ostomy. Risks include, but are not limited to, bleeding, infection, adhesions, recurrence, injury to other structures, anastomotic leak if one is performed, stoma complications, DVT, cardiopulmonary
complications, positioning injuries, organ dysfunction, and the risks of anesthesia. If a stoma is made it is temporary. I have asked our enterostomal therapists to yury the patient as time allows. I also reviewed the typical recovery and functional
results. He wishes to proceed and arrangements are in progress. I called and spoke with both of his daughters.
--- NOTE | 2023-12-22 12:01 | SUR.PHASEI ---
1159 - patient to OR with OR team, alert oriented, vss, daughter visited at bedside. attempting to use urinal -unsuccessful - urinal propped
--- NOTE | 2023-12-22 15:27 | W.IMMPOSTOP ---
Surgical Immed Post Op Note
-
Primary Surgeon: Sai Garzon MD
Assistants: Daniela Malone PA-C, WALTER Mix
Pre-op Diagnosis: Sigmoid volvulus
Post-op Diagnosis: Same
Procedure Performed: Laparotomy with sigmoid resection, takedown of splenic flexure and colorectal anastomosis
Anesthesia Type: GET
Specimen / Cultures: Sigmoid colon (suture is distal)
Estimated Blood Loss: 30cc
Complications: None
Operative Findings: Sigmoid volvulus with ischemia
28mm EEA
Normal leak test
NGT in fundus of the stomach
Patient's daughters updated.
[2023-12-22] MEDS: NORMOSOL-R 1000 IV (16:07)
[2023-12-22 16:08] LABS: % Basophils 0.3 % (0-2); % Immature Granulocytes 0.2 % (0-0.5); % Lymphocytes 2.6 % (20.5-51.1); % Monocytes 4.9 % (1.7-9.3); Absolute Lymphocytes 0.3 10^3/uL (1.2-3.4); Absolute Monocytes 0.6 10^3/uL (0.1-0.6); Absolute Neutrophils 10.4 10^3/uL (1.4-6.5); Hematocrit 41.3 % (39.0-52.0); Hemoglobin 14.1 g/dL (13.0-18.0); Mean Corp Hgb Conc. 34.1 g/dL (33.0-37.0); Mean Corpuscular Hgb 30.6 pg (27.0-31.0); Mean Corpuscular Volume 89.6 fL (80.0-94.0); Mean Platelet Volume 9.1 fL (7.4-10.4); Nucleated Red Blood Cells % 0 % (-); Platelet Count 170 10^3/uL (130-400); Red Blood Cell Count 4.61 10^6/uL (4.70-6.10); Red Cell Dist. Width 12.4 % (11.5-14.5); White Blood Cell Count 11.4 10^3/uL (4.8-10.8)
[2023-12-22 16:22] LABS: Blood Urea Nitrogen 22 mg/dl (9-20); Calcium 7.7 mg/dl (8.4-10.2); Carbon Dioxide 23 mmol/L (22-30); Chloride 104 mmol/L (98-107); Estimated Creatinine Clearance 64 ml/min; Glucose 143 mg/dl (70-99); Potassium 4.7 mmol/L (3.5-5.1); Sodium 134 mmol/L (135-145); eGFR > 60.00
[2023-12-22] MEDS: DILAUDID 0.25 MG IV (16:28)
--- NOTE | 2023-12-22 17:05 | PTCARENOTE ---
[place] to [place] s/p sigmoidectomy. Pt on 4L NC satting 94%, IVF infusing, Calix in place draining yellow urine, R nare NGT in place to continuous suction, midline abdominal aquacel dressing with scant amount of drainage. Pt drowsy, but AAOx3,
and states no pain at this time. Pt oriented to call sandra and room, bed locked and in lowest position, call sandra within reach.
[2023-12-22] MEDS: NSS IV (17:08)
[2023-12-22] MEDS: OFIRMEV 100 IV (19:40)
[2023-12-23] VITALS (7 sets, daily range): BP systolic 110–141; BP diastolic 54–71; PULSE 62; O2SAT 90; BMI 26.6
[2023-12-23] MEDS: NORMOSOL-R 1000 IV ×3 (00:06→17:32)
[2023-12-23] MEDS: NSS IV ×2 (00:56→08:45)
[2023-12-23] MEDS: OFIRMEV 100 IV ×3 (02:00→13:58)
--- NOTE | 2023-12-23 03:28 | DOWNTIME ---
There was a [employer] Client Head Cager Downtime on 12/22/2023 from 0100 to 12/23/2023 at 0300. Downtime documentation of patient's care, including medication administrations, has been reconciled in the electronic record per guidelines. Refer to the
patient's paper chart under the miscellaneous tab to see printed paper medication records and downtime forms.
[2023-12-23] MEDS: DILAUDID 0.5 MG IV (04:58)
[2023-12-23 07:05] LABS: % Basophils 0.3 % (0-2); % Immature Granulocytes 0.3 % (0-0.5); % Lymphocytes 10.8 % (20.5-51.1); % Monocytes 5.5 % (1.7-9.3); % Neutrophils 83.1 % (42.2-75.2); Absolute Lymphocytes 1.1 10^3/uL (1.2-3.4); Absolute Monocytes 0.6 10^3/uL (0.1-0.6); Absolute Neutrophils 8.2 10^3/uL (1.4-6.5); Hematocrit 38.4 % (39.0-52.0); Hemoglobin 12.7 g/dL (13.0-18.0); Mean Corp Hgb Conc. 33.1 g/dL (33.0-37.0); Mean Corpuscular Hgb 30.2 pg (27.0-31.0); Mean Corpuscular Volume 91.2 fL (80.0-94.0); Mean Platelet Volume 9.5 fL (7.4-10.4); Nucleated Red Blood Cells % 0 % (-); Platelet Count 166 10^3/uL (130-400); Red Blood Cell Count 4.21 10^6/uL (4.70-6.10); Red Cell Dist. Width 12.6 % (11.5-14.5); White Blood Cell Count 9.9 10^3/uL (4.8-10.8)
[2023-12-23 07:36] LABS: ALT (SGPT) 13 U/L (0-50); AST (SGOT) 31 U/L (17-59); Albumin 2.6 g/dl (3.5-5.0); Alkaline Phosphatase 75 U/L (38-126); Blood Urea Nitrogen 17 mg/dl (9-20); Calcium 7.8 mg/dl (8.4-10.2); Carbon Dioxide 28 mmol/L (22-30); Chloride 105 mmol/L (98-107); Estimated Creatinine Clearance 69 ml/min; Glucose 99 mg/dl (70-99); Potassium 4.2 mmol/L (3.5-5.1); Sodium 136 mmol/L (135-145); Total Bilirubin 0.8 mg/dl (0.2-1.3); Total Protein 4.7 g/dl (6.3-8.2); eGFR > 60.00
--- NOTE | 2023-12-23 09:29 | W.PN.CRS1 ---
Today's Communication / Plan
-
add toradol, increase dilaudid
maintain NGT
OOB with PT
await bowel function
Assessment/Plan
-
POD#1 Laparotomy with sigmoid resection, takedown of splenic flexure and colorectal anastomosis
1. Vitals and labs normal.
2. NGT output 100ml, continue until bowel function returns.
3. Pain control: Tylenol, add Toradol standing, increase Dilaudid.
4. OOB with PT.
5. OR pathology pending.
6. Maintain callejas until tomorrow.
7. Continue IVFs given NPO status.
Subjective Data
Procedure
12/22/2023- Laparotomy with sigmoid resection, takedown of splenic flexure and colorectal anastomosis
Subjective Data
Date of Service: December 23, 2023
Patient states he had some abdominal pain last night. He denies nausea or vomiting. He has no flatus or bowel function yet.
Objective Data
-
Vital Signs
Temp Pulse Resp BP Pulse Ox
98.9 F 66 14 129/71 94
12/23/23 07:25 12/23/23 07:25 12/23/23 07:25 12/23/23 07:25 12/23/23 07:25
Intake & Output
12/22/23 12/23/23 12/24/23
06:59 06:59 06:59
Intake Total 1565 / 1565
Output Total 650 / 650
Balance 915 / 915
Intake:
IV fluids (Total) 1325 / 1325
Norm 50 / 50
Normosol-R 1,000 ml @ 100 mls/ 75 / 75
hr IV .Q10H IRON Rx#:[id number]
IV piggybacks 200 / 200
Feeding tube flush amount 0 / 0
Amount instilled into GI Tube ( 40 / 40
Total)
[place] Sump 40 / 40
Output:
Gastrointestinal tube output ( 100 / 100
Total)
[place] Sump 100 / 100
Urine, Callejas 550 / 550
Lab Results
12/23/23 05:59
12/23/23 05:59
Physical Exam
-
General: No Acute Distress and AOx3
Abdomen: Soft, Non Distended and Tender (over incision site)
Skin: Warm and Dry
Wound: Dressing in Place
[2023-12-23] MEDS: TORADOL 15 MG IV ×3 (09:32→20:07)
[2023-12-23] MEDS: DILAUDID 1 MG IV ×4 (09:34→21:58)
[2023-12-23] MEDS: PROTONIX IV 40 MG IV (09:34)
[2023-12-23] MEDS: NSS (PRESERVATIVE FREE) 10 ML IV (09:34)
--- NOTE | 2023-12-23 11:54 | CM ---
Initial assessment completed with patient and two daughters. 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 Pharmacy is [facility] on [address] in [place] and PCP is Dr. Krish Walters with [facility]. Anticipate no needs at discharge.
[2023-12-24] MEDS: TORADOL 15 MG IV ×4 (02:25→21:14)
[2023-12-24] MEDS: DILAUDID 1 MG IV ×4 (03:13→21:19)
[2023-12-24] MEDS: NORMOSOL-R 1000 IV ×2 (03:18→14:39)
[2023-12-24 07:05] VITALS: BMI 26.0
[2023-12-24 07:41] VITALS: BP 140/73
[2023-12-24] MEDS: NSS (PRESERVATIVE FREE) 10 ML IV (08:56)
[2023-12-24] MEDS: PROTONIX IV 40 MG IV (08:56)
[2023-12-24] MEDS: FLUSH (NSS) 3 FLUSH IV (08:57)
--- NOTE | 2023-12-24 09:03 | PN.CDI ---
CDI
- -
CDI:
Physician Documentation Request
Admit Date: 12/22/23 06:39
Dear Doctor Duran,
Patient admitted for volvus.
12/22 Colorectal PN: 'His white count remains normal and his hemoglobin is slightly low at 12.7 g/dL. The anemia is secondary to dilution and and intraoperative blood loss.'
Clarify which of the following accurately represents the acuity of the anemia. Possible options might include:
____ Acute
Chronic
____ Other
Use of terms such as suspected, likely, concern for, or probable (associated with a specific diagnosis that is being evaluated, monitored, or treated as if it exists) are acceptable and can be coded in the inpatient setting, when documented at the
time of discharge.
Thank you,
Becki Martínez RN, BSN
CDI Specialist
Available via [employer] text
Please use your independent medical judgment in providing your response.
--- NOTE | 2023-12-24 10:21 | W.PN.CRS1 ---
Today's Communication / Plan
-
NGT clamping trial
Assessment/Plan
-
POD#2 Laparotomy with sigmoid resection, takedown of splenic flexure and colorectal anastomosis
1. Vitals normal, labs pending.
2. NGT output 710ml (patient drinking cups of water). Will do an NGT clamping trial. If removed, patient to remain NPO with c/s.
3. Pain control: Tylenol, add Toradol standing, Dilaudid PRN.
4. OOB with PT.
5. OR pathology pending.
6. Calix discontinued, await void.
7. Continue IVFs given NPO status.
Subjective Data
Procedure
12/22/2023- Laparotomy with sigmoid resection, takedown of splenic flexure and colorectal anastomosis
Subjective Data
Date of Service: December 24, 2023
Patient states he has flatus. He denies nausea or vomiting. He has some mild pain.
Objective Data
-
Vital Signs
Temp Pulse Resp BP Pulse Ox
99.3 F 74 18 140/73 90
12/24/23 07:41 12/24/23 07:41 12/24/23 07:41 12/24/23 07:41 12/24/23 07:41
Intake & Output
12/23/23 12/24/23 12/25/23
06:59 06:59 06:59
Intake Total 1565 / 1565 2810 / 2810
Output Total 650 / 650 2310 / 2310
Balance 915 / 915 500 / 500
Intake:
Oral fluids 120 / 120
IV fluids (Total) 1325 / 1325 2400 / 2400
Norm 50 / 50
Normosol-R 1,000 ml @ 100 mls/ 75 / 75
hr IV .Q10H IRON Rx#:[id number]
IV piggybacks 200 / 200 200 / 200
Feeding tube flush amount 0 / 0
Amount instilled into GI Tube ( 40 / 40 90 /
Total)
[place] Sump 40 / 40 90 /
Output:
Gastrointestinal tube output ( 100 / 100 710 / 710
Total)
[place] Sump 100 / 100 710 / 710
Urine, Calix 550 / 550 1600 / 1600
Lab Results
12/23/23 05:59
12/23/23 05:59
Physical Exam
-
General: No Acute Distress and AOx3
Abdomen: Soft, Distended (mild) and Tender (very tender on right side near incision)
Skin: Warm and Dry
Wound: Dressing in Place
[2023-12-24 11:12] LABS: Hematocrit 36.5 % (39.0-52.0); Hemoglobin 12.4 g/dL (13.0-18.0); Mean Corpuscular Hgb 30.5 pg (27.0-31.0); Mean Corpuscular Volume 89.9 fL (80.0-94.0); Mean Platelet Volume 9.2 fL (7.4-10.4); Platelet Count 184 10^3/uL (130-400); Red Blood Cell Count 4.06 10^6/uL (4.70-6.10); Red Cell Dist. Width 12.4 % (11.5-14.5); White Blood Cell Count 7.7 10^3/uL (4.8-10.8)
[2023-12-24 11:35] LABS: Blood Urea Nitrogen 25 mg/dl (9-20); Calcium 8.2 mg/dl (8.4-10.2); Carbon Dioxide 27 mmol/L (22-30); Chloride 102 mmol/L (98-107); Estimated Creatinine Clearance 64 ml/min; Glucose 82 mg/dl (70-99); Sodium 137 mmol/L (135-145); eGFR > 60.00
--- NOTE | 2023-12-24 12:07 | CM ---
Met with patient in room; OOB in chair; NGT clamped
Plan: discharge to home when medically stable; does not think he needs home PT; will continue to follow for DC needs
[2023-12-24 14:20] VITALS: BP 134/83; PULSE 71; O2SAT 93
[2023-12-24 15:00] VITALS: BP 133/77
[2023-12-24] MEDS: LOVENOX 40 MG SC (18:02)
[2023-12-24 19:31] VITALS: BP 137/87
[2023-12-24] MEDS: ProAIR HFA INHALER 2 PUFF INH (19:40)
[2023-12-24 23:35] VITALS: BP 143/75
[2023-12-25] MEDS: NORMOSOL-R 1000 IV (00:23)
[2023-12-25] MEDS: DILAUDID 0.5 MG IV ×4 (00:27→13:12)
[2023-12-25] MEDS: TORADOL 15 MG IV ×4 (03:15→20:28)
[2023-12-25 04:15] VITALS: BMI 25.9
[2023-12-25 05:30] LABS: Hematocrit 31.5 % (39.0-52.0); Hemoglobin 10.7 g/dL (13.0-18.0); Mean Corpuscular Hgb 30.7 pg (27.0-31.0); Mean Corpuscular Volume 90.5 fL (80.0-94.0); Mean Platelet Volume 9.7 fL (7.4-10.4); Platelet Count 174 10^3/uL (130-400); Red Blood Cell Count 3.48 10^6/uL (4.70-6.10); White Blood Cell Count 5.2 10^3/uL (4.8-10.8)
[2023-12-25 06:04] LABS: Blood Urea Nitrogen 25 mg/dl (9-20); Carbon Dioxide 27 mmol/L (22-30); Chloride 103 mmol/L (98-107); Estimated Creatinine Clearance 64 ml/min; Glucose 79 mg/dl (70-99); Sodium 135 mmol/L (135-145); eGFR > 60.00
[2023-12-25 07:34] VITALS: BP 144/83
--- NOTE | 2023-12-25 09:06 | W.PN.CRS1 ---
Today's Communication / Plan
-
1. Vitals normal, wbc normal.
2. Pain control: Tylenol, Toradol and Dilaudid PRN.
3. Start clear liquids.
4. OOB with PT.
5. OR pathology pending.
6. Calix discontinued, await void.
7. Continue IVFs given NPO status.
Assessment/Plan
-
POD#3 Laparotomy with sigmoid resection, takedown of splenic flexure and colorectal anastomosis
Progressing well.
Subjective Data
Procedure
12/22/2023- Laparotomy with sigmoid resection, takedown of splenic flexure and colorectal anastomosis
Subjective Data
Date of Service: December 25, 2023
The NG tube was removed yesterday and he denies any nausea. He is passing some flatus overnight.
Objective Data
-
Vital Signs
Temp Pulse Resp BP Pulse Ox
97.7 F 56 18 144/83 95
12/25/23 07:34 12/25/23 07:34 12/25/23 07:34 12/25/23 07:34 12/25/23 07:34
Intake & Output
12/24/23 12/25/23 12/26/23
06:59 06:59 06:59
Intake Total 2810 / 2810 2160 / 2160
Output Total 2310 / 2310 1275 / 1275
Balance 500 / 500 885 / 885
Intake:
Oral fluids 120 / 120
IV fluids (Total) 2400 / 2400 2160 / 2160
IV piggybacks 200 / 200
Amount instilled into GI Tube ( 90 / 90
Total)
[place] Sump 90 / 90
Output:
Gastrointestinal tube output ( 710 / 710 75 / 75
Total)
[place] Sump 710 / 710 75 / 75
Urine, Calix 1600 / 1600
Urine, Voided 1200 / 1200
Lab Results
12/25/23 04:11
12/25/23 04:11
Physical Exam
-
General: No Acute Distress
Abdomen: Soft, Non Distended and Non Tender
Extremities: No Calf Tenderness
Wound: Dressing in Place
[2023-12-25] MEDS: PROTONIX IV 40 MG IV (09:16)
[2023-12-25] MEDS: NSS (PRESERVATIVE FREE) 10 ML IV (09:16)
--- NOTE | 2023-12-25 10:08 | CM ---
Chart reviewed and plan is to home when stable.
Plan; Home when stable.
[2023-12-25] MEDS: FLUSH (NSS) 1 FLUSH IV (13:13)
[2023-12-25 14:36] VITALS: BMI 25.9
[2023-12-25 15:28] VITALS: BP 158/92
[2023-12-25] MEDS: NORMOSOL-R IV (15:30)
[2023-12-25] MEDS: LOVENOX 40 MG SC (17:14)
[2023-12-25] MEDS: DILAUDID 1 MG IV (23:08)
[2023-12-25 23:35] VITALS: BP 141/85
[2023-12-26] MEDS: TORADOL 15 MG IV ×2 (02:03→07:57)
[2023-12-26] MEDS: DILAUDID 0.5 MG IV ×2 (03:32→13:32)
[2023-12-26 03:43] VITALS: BMI 25.1
[2023-12-26 07:55] VITALS: BP 152/90
[2023-12-26] MEDS: PROTONIX IV 40 MG IV (07:56)
[2023-12-26] MEDS: NSS (PRESERVATIVE FREE) 10 ML IV (07:56)
--- NOTE | 2023-12-26 09:04 | W.PN.GS2 ---
Addendum entered and electronically signed by Steven Severino MD 12/26/23 19:48:
This is a delayed progress note entry.
Patient seen and examined with nurse practitioner in follow-up earlier in the afternoon.
At that point patient was feeling improvement from the a.m. when he was having bloating and some mild anorexia
He has now passed gas once or twice, abdominal distention does not feel worse
AFVSS
ABD: Softly distended and tympanitic, incisional tenderness but no rebound rigidity or guarding. Incision clean, colten in place, no erythema, no significant drainage
Abdominal x-ray obtained today and consistent with ileus
A/P: Given stability of abdominal distention during the day, some passage of flatus now and adequate nausea control with antiemetics okay to hold off on NG tube placement
Diet was backed down to n.p.o. except sips and chips for comfort
Continue IV fluid hydration
Encourage ambulation
Await return of GI function
Repeat labs in the a.m.
Original Note:
Today's Communication / Plan
-
IVF, labs, clear liquids
Assessment / Plan
-
68 yo male who presented with sigmoid volvulus with bowel ischemia now POD #4 laparotomy with sigmoid resection
AFVSS
Will order labs for this am and follow
Await bowel recovery
--Continue clear liquids
--Multimodal analgesics
--PT consulted to follow/oob and ambulate
--Start IVF with LR at 80ml/hr
--Multimodal analgesics
--VTE ppx with scd's and lovenox 40mg sq
Subjective Data
-
Date of Service: December 26, 2023
Patient seen and examined at bedside. Pain present but tolerable. Has not passed flatus in >24hours, feels a bit bloated. Denies n/v.
Objective Data
-
Intake and Output
12/25/23 12/26/23 12/27/23
06:59 06:59 06:59
Intake Total 2160 / 2160 500 / 500
Output Total 1275 / 1275
Balance 885 / 885 500 / 500
Intake:
IV fluids (Total) 2160 / 2160 500 / 500
Output:
Gastrointestinal tube output ( 75 / 75
Total)
[place] Sump 75 / 75
Urine, Voided 1200 / 1200
Vital Signs
Temp Pulse Resp BP Pulse Ox
98.7 F 63 18 152/90 95
12/26/23 07:55 12/26/23 07:55 12/26/23 07:55 12/26/23 07:55 12/26/23 07:55
Lab Results
12/25/23 04:11
12/25/23 04:11
Calcium 8.0 mg/dl (8.4-10.2) L 12/25/23 04:11
Total Bilirubin 0.8 mg/dl (0.2-1.3) 12/23/23 05:59
AST 31 U/L (17-59) 12/23/23 05:59
ALT 13 U/L (0-50) 12/23/23 05:59
Alkaline Phosphatase 75 U/L (38-126) 12/23/23 05:59
Total Protein 4.7 g/dl (6.3-8.2) L D 12/23/23 05:59
Albumin 2.6 g/dl (3.5-5.0) L 12/23/23 05:59
Physical Exam
-
NAD
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
Incision well approximated, giuliana present
[2023-12-26] MEDS: LR 1000 IV ×2 (09:39→18:53)
[2023-12-26 09:40] LABS: Hematocrit 38.5 % (39.0-52.0); Hemoglobin 13.2 g/dL (13.0-18.0); Mean Corp Hgb Conc. 34.3 g/dL (33.0-37.0); Mean Corpuscular Hgb 29.9 pg (27.0-31.0); Mean Corpuscular Volume 87.3 fL (80.0-94.0); Mean Platelet Volume 8.8 fL (7.4-10.4); Platelet Count 223 10^3/uL (130-400); Red Blood Cell Count 4.41 10^6/uL (4.70-6.10); White Blood Cell Count 5.5 10^3/uL (4.8-10.8)
[2023-12-26 10:02] LABS: Blood Urea Nitrogen 25 mg/dl (9-20); Calcium 9.3 mg/dl (8.4-10.2); Carbon Dioxide 29 mmol/L (22-30); Chloride 102 mmol/L (98-107); Estimated Creatinine Clearance 55 ml/min; Glucose 102 mg/dl (70-99); Potassium 4.5 mmol/L (3.5-5.1); Sodium 138 mmol/L (135-145); eGFR 55.09
[2023-12-26] MEDS: ZOFRAN 4 MG IV ×2 (14:09→20:49)
[2023-12-26 15:37] VITALS: BP 148/88
[2023-12-26] MEDS: LOVENOX 40 MG SC (16:20)
--- NOTE | 2023-12-26 20:30 | PTCARENOTE ---
patient called d/t vomiting copious amount of green watery vomit. pt relieved afterwards and zofran administered per order as well. assessment on going.
[2023-12-26 23:05] VITALS: BP 158/90
[2023-12-26] MEDS: DILAUDID 1 MG IV (23:16)
--- NOTE | 2023-12-26 23:30 | PTCARENOTE ---
alert by PCT that patient has a temp of 101.3 orally and is c/o pain and nausea. patient assessed and stated he had '8/10 bloating pain' to abdomen throughout and had several instances of dry heaves without vomiting. PRN Pain medication
administered per order. House provider Juany Hanna DIE REPAIRER STAMPING notified. Ofirmev and compazine ordered and administered. Surgeon supervisor scrap preparation Dr Severino also made aware. Dr Severino suggest NGT is most likely necessary to relieve patient's symptoms. This RN
educated patient to conversation with surgeon and his recommendation. Patient wishes to hold off on NGT placement and see if additional antiemetic and pain medication helps current symptoms. Patient is agreeable to NGT placement if he becomes
nauseous again. will cont to assess. care on going.
[2023-12-26] MEDS: COMPAZINE 5 MG IV (23:55)
[2023-12-27] MEDS: OFIRMEV 100 IV (00:05)
--- NOTE | 2023-12-27 01:40 | PTCARENOTE ---
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 NGT placed per order immediately after. patient tolerated well. 500 ml of thick light brown/greenish liquid immediately out upon attaching to low suction. patient reported
relief.
[2023-12-27] MEDS: LR 1000 IV ×3 (03:24→21:00)
[2023-12-27] MEDS: DILAUDID 0.5 MG IV ×2 (05:10→21:03)
[2023-12-27 05:30] LABS: Blood Urea Nitrogen 25 mg/dl (9-20); Calcium 8.5 mg/dl (8.4-10.2); Carbon Dioxide 27 mmol/L (22-30); Chloride 102 mmol/L (98-107); Estimated Creatinine Clearance 64 ml/min; Glucose 123 mg/dl (70-99); Magnesium 1.8 mg/dl (1.6-2.3); Potassium 4.4 mmol/L (3.5-5.1); Sodium 137 mmol/L (135-145); eGFR > 60.00
[2023-12-27 06:00] VITALS: BMI 24.6
[2023-12-27] MEDS: CHLORASEPTIC/SORE THROAT SPRAY 1 SPRAY PO (06:36)
[2023-12-27 07:40] VITALS: BP 149/88
--- NOTE | 2023-12-27 08:26 | W.PN.GS2 ---
Addendum entered and electronically signed by Steven Severino MD 12/27/23 11:06:
Patient seen and examined with surgical TOURIST CABIN KEEPER. Agree with documented progress note. Discussed with nursing staff overnight via [place] text.
Progressive/worsening ileus symptoms with intermittent nausea vomiting
NG tube was placed
Patient complains of throat discomfort from NG tube but improvement in abdominal distention and discomfort.
No localizing abdominal pains.
Still passing little amounts of flatus at times.
No further nausea or vomiting since NG tube placed
Tmax 101.3 VSS
NAD but uncomfortable appearing due to NG tube
ABD: Distended, tympanitic, mild tenderness but no rebound rigidity or guarding
A/P: Worsening ileus status post sigmoid resection for sigmoid volvulus
Laboratories reviewed and stable/normal this a.m.
Maintain NG tube decompression
IV fluid hydration
Original Note:
Today's Communication / Plan
-
NGT to LIWS
Assessment / Plan
-
68 yo male who presented with sigmoid volvulus with bowel ischemia now POD #5 laparotomy with sigmoid resection
Fever of 101.3. Vitals otherwise stable
Suspect fever secondary to ileus, will follow trend with NGT in place
NGT placed for ileus with improvement in distention/pain. Output around 2L overnight.
MURPHY present on yesterday's labs suspect prerenal as improving with IVF. NSAIDs held.
Await bowel recovery
--NPO with NGT to LIWS
--Multimodal analgesics. PRN Ofirmev for fevers
--PT consulted to follow/oob and ambulate
--Continue IVF
--Multimodal analgesics
--VTE ppx with scd's and lovenox 40mg sq
Subjective Data
-
Date of Service: December 27, 2023
Patient seen and examined at bedside. N/V overnight with NGT replaced. Notes his abdominal pain has much improved since tube placement as has nausea but significant throat discomfort with tube present
Objective Data
-
Intake and Output
12/26/23 12/27/23 12/28/23
06:59 06:59 06:59
Intake Total 500 / 500 3600 / 3600
Output Total 1949
Balance 500 / 500 1650 / 1650
Intake:
Oral fluids 960 / 960
IV fluids (Total) 500 / 500 2540 / 2540
IV piggybacks 100 / 100
Output:
Gastrointestinal tube output ( 1949
Total)
[place] Sump 1949
Other:
Number of approximated MODERATE 3
amounts of urine
Number of approximated LARGE 1
amounts of urine
Number of immeasurable emeses? 2
Vital Signs
Temp Pulse Resp BP Pulse Ox
98.7 F 74 16 149/88 94
12/27/23 07:40 12/27/23 07:40 12/27/23 07:40 12/27/23 07:40 12/27/23 07:40
Lab Results
12/26/23 09:17
12/27/23 04:37
Calcium 8.5 mg/dl (8.4-10.2) 12/27/23 04:37
Magnesium 1.8 mg/dl (1.6-2.3) 12/27/23 04:37
Total Bilirubin 0.8 mg/dl (0.2-1.3) 12/23/23 05:59
AST 31 U/L (17-59) 12/23/23 05:59
ALT 13 U/L (0-50) 12/23/23 05:59
Alkaline Phosphatase 75 U/L (38-126) 12/23/23 05:59
Total Protein 4.7 g/dl (6.3-8.2) L D 12/23/23 05:59
Albumin 2.6 g/dl (3.5-5.0) L 12/23/23 05:59
Physical Exam
-
NAD
ABD soft, mild distention, generalized tenderness, TOURIST CABIN KEEPER, NGT with bilious outputs
Incision well approximated, giuliana present and colten intact. Dressing changed
[2023-12-27] MEDS: NSS (PRESERVATIVE FREE) 10 ML IV (09:01)
[2023-12-27] MEDS: PROTONIX IV 40 MG IV (09:02)
[2023-12-27] MEDS: HURRICAINE SPRAY 1 APPLIC TOPICAL (11:48)
--- NOTE | 2023-12-27 12:37 | CM ---
CM reviewed chart. Pt is not medically stable for discharge. Noted to be febrile overnight and now with NGT.
CM will continue to follow and watch for needs.
Discharge dispo home no skilled dc needs anticipated.
[2023-12-27] MEDS: ZOFRAN 4 MG IV ×2 (14:28→20:51)
[2023-12-27 15:00] VITALS: BP 147/83
[2023-12-27] MEDS: LOVENOX 40 MG SC (16:57)
[2023-12-27 23:00] VITALS: BP 164/90
[2023-12-28] LABS: Glucose - Point of Care 89 mg/dl (70-99)
[2023-12-28] MEDS: DILAUDID 1 MG IV ×2 (00:05→20:57)
[2023-12-28] MEDS: HURRICAINE SPRAY 1 APPLIC TOPICAL (04:32)
[2023-12-28] MEDS: LR 1000 IV ×3 (05:03→20:55)
[2023-12-28 05:21] LABS: Hemoglobin 11.6 g/dL (13.0-18.0); Mean Corp Hgb Conc. 34.1 g/dL (33.0-37.0); Mean Corpuscular Hgb 30.7 pg (27.0-31.0); Mean Corpuscular Volume 89.9 fL (80.0-94.0); Mean Platelet Volume 9.2 fL (7.4-10.4); Platelet Count 203 10^3/uL (130-400); Red Blood Cell Count 3.78 10^6/uL (4.70-6.10); Red Cell Dist. Width 11.8 % (11.5-14.5); White Blood Cell Count 5.6 10^3/uL (4.8-10.8)
[2023-12-28 05:42] LABS: Blood Urea Nitrogen 26 mg/dl (9-20); Calcium 8.5 mg/dl (8.4-10.2); Carbon Dioxide 27 mmol/L (22-30); Chloride 103 mmol/L (98-107); Estimated Creatinine Clearance 69 ml/min; Glucose 91 mg/dl (70-99); Sodium 138 mmol/L (135-145); eGFR > 60.00
[2023-12-28 05:48] LABS: Potassium 4.2 mmol/L (3.5-5.1)
[2023-12-28 06:00] VITALS: BMI 24.9
[2023-12-28 06:37] LABS: Glucose - Point of Care 92 mg/dl (70-99)
[2023-12-28 07:26] VITALS: BP 154/87
[2023-12-28] MEDS: NSS (PRESERVATIVE FREE) 10 ML IV (08:33)
[2023-12-28] MEDS: PROTONIX IV 40 MG IV (08:34)
--- NOTE | 2023-12-28 10:29 | W.PN.CRS1 ---
Today's Communication / Plan
-
continue NGT with npo
Assessment/Plan
-
POD #6 laparotomy with sigmoid resection
--Continue NPO with NGT to LIWS. Output 700ml in 24 hours. Have asked RN to replace canister (was not suctioning and tube was misplaced).
--Multimodal analgesics. PRN Ofirmev for fevers.
--OOB with PT.
--Continue IVF.
--Multimodal analgesics.
--VTE ppx with scd's and lovenox 40mg sq.
--OR pathology pending.
--D/C benzocaine spray. Add Cepacol lozenge.
--D/C Detrol (patient not taking at home).
Subjective Data
Procedure
12/22/2023- Laparotomy with sigmoid resection, takedown of splenic flexure and colorectal anastomosis
Subjective Data
Date of Service: December 28, 2023
Patient states he is feeling better. He had nausea yesterday which resolved. He denies pain. He has not had a bowel movement but has flatus.
Objective Data
-
Vital Signs
Temp Pulse Resp BP Pulse Ox
99.1 F 77 16 154/87 96
12/28/23 07:26 12/28/23 07:26 12/28/23 07:26 12/28/23 07:26 12/28/23 10:00
Intake & Output
12/27/23 12/28/23 12/29/23
06:59 06:59 06:59
Intake Total 3600 / 3600 3060 / 3060 30 / 30
Output Total 1950 / 1950 1075 / 1075 225 / 225
Balance 1650 / 1650 1984 / 1984 -195 / -195
Intake:
Oral fluids 960 / 960 30 / 30
IV fluids (Total) 2540 / 2540 2880 / 2880
IV piggybacks 100 / 100
Amount instilled into GI Tube ( 150 / 150 30 / 30
Total)
[place] Sump 150 / 150 30 / 30
Output:
Gastrointestinal tube output ( 1949 / 700
Total)
[place] Sump 1949 / 700
Urine, Voided 375 / 375 225 / 225
Other:
Number of approximated MODERATE 3 3
amounts of urine
Number of approximated LARGE 1
amounts of urine
Number of immeasurable emeses? 2
Lab Results
12/28/23 04:33
12/28/23 04:33
Physical Exam
-
General: No Acute Distress and AOx3
Abdomen: Soft, Non Distended and Non Tender
Skin: Warm and Dry
[2023-12-28 15:27] VITALS: BP 166/91
[2023-12-28] MEDS: LOVENOX 40 MG SC (17:41)
[2023-12-28] MEDS: ANESTHETIC LOZENGE 1 LOZENGE PO (22:21)
[2023-12-28 23:11] VITALS: BP 147/79
[2023-12-29] MEDS: DILAUDID 1 MG IV ×3 (00:20→21:25)
[2023-12-29 04:51] VITALS: BMI 25.0
[2023-12-29 05:13] LABS: % Basophils 0.4 % (0-2); % Eosinophils 12.5 % (0-6); % Immature Granulocytes 0.2 % (0-0.5); % Lymphocytes 21.6 % (20.5-51.1); % Monocytes 17.5 % (1.7-9.3); % Neutrophils 47.8 % (42.2-75.2); Absolute Eosinophils 0.6 10^3/uL (0-0.7); Absolute Monocytes 0.8 10^3/uL (0.1-0.6); Absolute Neutrophils 2.3 10^3/uL (1.4-6.5); Hematocrit 32.7 % (39.0-52.0); Hemoglobin 10.9 g/dL (13.0-18.0); Mean Corp Hgb Conc. 33.3 g/dL (33.0-37.0); Mean Corpuscular Hgb 29.9 pg (27.0-31.0); Mean Corpuscular Volume 89.6 fL (80.0-94.0); Mean Platelet Volume 9.1 fL (7.4-10.4); Nucleated Red Blood Cells % 0 % (-); Platelet Count 218 10^3/uL (130-400); Red Blood Cell Count 3.65 10^6/uL (4.70-6.10); Red Cell Dist. Width 11.7 % (11.5-14.5); White Blood Cell Count 4.8 10^3/uL (4.8-10.8)
[2023-12-29] MEDS: LR 1000 IV ×3 (05:25→23:10)
[2023-12-29 05:38] LABS: Blood Urea Nitrogen 26 mg/dl (9-20); Calcium 8.3 mg/dl (8.4-10.2); Carbon Dioxide 25 mmol/L (22-30); Chloride 104 mmol/L (98-107); Estimated Creatinine Clearance 69 ml/min; Glucose 86 mg/dl (70-99); Potassium 3.9 mmol/L (3.5-5.1); Sodium 137 mmol/L (135-145); eGFR > 60.00
[2023-12-29 07:00] VITALS: BP 148/72
[2023-12-29] MEDS: NSS (PRESERVATIVE FREE) 10 ML IV (08:33)
[2023-12-29] MEDS: PROTONIX IV 40 MG IV (08:33)
[2023-12-29] MEDS: FLUSH (NSS) 3 FLUSH IV (08:38)
[2023-12-29] MEDS: DILAUDID 0.5 MG IV ×2 (08:38→15:00)
--- NOTE | 2023-12-29 09:25 | W.PN.CRS1 ---
Today's Communication / Plan
-
Clamp trial
Assessment/Plan
-
68-year-old with PMH of asthma, BPH s/p TURP 11/2023, colon cancer s/p sigmoidectomy 17 years ago at [facility], who presents with sigmoid volvulus; underwent flexible sigmoidoscopy with reduction of volvulus but identification of necrotic mucosa
and underwent urgent surgery
POD 7 ex lap sigmoidectomy with EEA stapled anastomosis; course complicated by ileus
WBC 4.8 from 5.6, Hb 10.9 from 11.6 (trend overall stable); NGT 675 mL
� Will perform clamp trial; if less than 150 mL after 4 hours, okay to remove and start sips
� Continue pain control with Tylenol and Dilaudid as needed
� Continue DVT PPx with Lovenox
� OOB/IS
� Continue home meds
Subjective Data
Procedure
12/22/2023- Laparotomy with sigmoid resection, takedown of splenic flexure and colorectal anastomosis
Subjective Data
Date of Service: December 29, 2023
No overnight events.
Pain controlled.
Denies nausea/vomiting. Patient is n.p.o. with NGT
+flatus (had a few yesterday) +BMs (had a couple small BMs overnight with urgency) +voiding
Pt is OOB.
Objective Data
-
Vital Signs
Temp Pulse Resp BP Pulse Ox
98.2 F 80 16 148/72 94
12/29/23 07:00 12/29/23 07:00 12/29/23 07:00 12/29/23 07:00 12/29/23 07:00
Intake & Output
12/28/23 12/29/23 12/30/23
06:59 06:59 06:59
Intake Total 3060 / 3060 3060 / 3060
Output Total 1075 / 1075 900 / 900
Balance 1984 2160 / 2160
Intake:
Oral fluids 30 / 30
IV fluids (Total) 2880 / 2880 2880 / 2880
Amount instilled into GI Tube ( 150 / 150 180 / 180
Total)
[place] Sump 150 / 150 180 / 180
Output:
Gastrointestinal tube output ( 700 / 700 675 / 675
Total)
[place] Sump 700 / 700 675 / 675
Urine, Voided 375 / 375 225 / 225
Other:
Number of approximated MODERATE 3 1
amounts of urine
Number of approximated LARGE 2
amounts of urine
Lab Results
12/29/23 04:11
12/29/23 04:11
Physical Exam
-
General: No Acute Distress and AOx3
HEENT: Grossly Normal
Abdomen: Soft, Distended (Minimally distended (improved from yesterday)), Non Tender, No Guarding and No Rebound
Skin: Warm and Dry
Wound: No Signs of Infection, Dressing Changed, No Skin Erythema and Other (No drainage; incision healing well with colten)
--- NOTE | 2023-12-29 11:02 | CM ---
Patient seen at bedside. Patient with NG tube on clamping trial. Patient c/o difficulty with speaking. Patient denied any discharge concerns at this time. CM will return to review discharge planning needs.
Plan; home with no needs vs home with VN
[2023-12-29 15:30] VITALS: BP 152/82
[2023-12-29] MEDS: LOVENOX 40 MG SC (17:19)
[2023-12-29 23:27] VITALS: BP 144/63
[2023-12-30] MEDS: DILAUDID 0.5 MG IV ×3 (00:56→14:28)
[2023-12-30 05:36] LABS: Blood Urea Nitrogen 23 mg/dl (9-20); Calcium 8.2 mg/dl (8.4-10.2); Carbon Dioxide 24 mmol/L (22-30); Chloride 102 mmol/L (98-107); Estimated Creatinine Clearance 76 ml/min; Glucose 73 mg/dl (70-99); Magnesium 1.8 mg/dl (1.6-2.3); Potassium 3.7 mmol/L (3.5-5.1); Sodium 135 mmol/L (135-145); eGFR > 60.00
[2023-12-30 06:00] VITALS: BMI 25.0
[2023-12-30] MEDS: LR 1000 IV ×2 (06:15→18:32)
[2023-12-30 07:39] VITALS: BP 138/65
--- NOTE | 2023-12-30 08:12 | W.PN.CRS1 ---
Today's Communication / Plan
-
remain npo with sips and chips
decrease ivfs
Assessment/Plan
-
68-year-old with PMH of asthma, BPH s/p TURP 11/2023, colon cancer s/p sigmoidectomy 17 years ago at [facility], who presents with sigmoid volvulus; underwent flexible sigmoidoscopy with reduction of volvulus but identification of necrotic mucosa
and underwent urgent surgery
POD#8 ex lap sigmoidectomy with EEA stapled anastomosis; course complicated by ileus
NGT removed 12/29/23
� Given distension, will remain NPO with sips and chips for now and re-evaluate later. Patient agrees.
� Continue pain control with Tylenol and Dilaudid as needed
� Continue DVT PPx with Lovenox
� OOB/IS
� Continue home meds
- Decrease IVFs to 75ml/hr
Subjective Data
Procedure
12/22/2023- Laparotomy with sigmoid resection, takedown of splenic flexure and colorectal anastomosis
Subjective Data
Date of Service: December 30, 2023
Patient states he is having bowel movements and flatus since the NGT was removed. He denies nausea or vomiting. His pain is control. He is not that hungry. He still feels distended. Patient also states he feels swollen due to IVFs.
Objective Data
-
Vital Signs
Temp Pulse Resp BP Pulse Ox
98.9 F 60 18 138/65 95
12/30/23 07:39 12/30/23 07:39 12/30/23 07:39 12/30/23 07:39 12/30/23 07:39
Intake & Output
12/29/23 12/30/23 12/31/23
06:59 06:59 06:59
Intake Total 3060 / 3060 2930 / 2930
Output Total 900 / 900
Balance 2160 / 2160 2930 / 2930
Intake:
IV fluids (Total) 2880 / 2880 2880 / 2880
Amount instilled into GI Tube ( 180 / 180 50 / 50
Total)
[place] Sump 180 / 180 50 / 50
Output:
Gastrointestinal tube output (
Total)
[place] Sump
Urine, Voided 225 / 225
Other:
Number of approximated MODERATE 1 2
amounts of urine
Number of approximated LARGE 2
amounts of urine
Lab Results
12/29/23 04:11
12/30/23 04:08
Physical Exam
-
General: No Acute Distress and AOx3
Abdomen: Soft, Distended (mild) and Non Tender
Wound: Dressing in Place
Incision: Clear, Dry, Intact
[2023-12-30] MEDS: NSS (PRESERVATIVE FREE) 10 ML IV (08:40)
[2023-12-30] MEDS: PROTONIX IV 40 MG IV (08:40)
--- NOTE | 2023-12-30 10:45 | CM ---
Patient seen at bedside. Patient without NG and doing sips and chips per patient. CM will continue to follow for discharge planning needs.
Plan; home with VN vs home with no needs.
--- NOTE | 2023-12-30 14:43 | PTOTSP ---
The patient has been ambulating in the hallway independently. Patient agreeable to PT signing off and to continue ambulating on his own while here. Will sign off at this time.
[2023-12-30 15:29] VITALS: BP 129/71
[2023-12-30] MEDS: LOVENOX 40 MG SC (18:33)
[2023-12-30] MEDS: DILAUDID 1 MG IV (21:38)
[2023-12-30 23:54] VITALS: BP 140/73
[2023-12-31] MEDS: DILAUDID 0.5 MG IV ×6 (00:59→22:53)
[2023-12-31 05:25] LABS: Hematocrit 30.5 % (39.0-52.0); Hemoglobin 10.2 g/dL (13.0-18.0); Mean Corp Hgb Conc. 33.4 g/dL (33.0-37.0); Mean Corpuscular Hgb 29.7 pg (27.0-31.0); Mean Corpuscular Volume 88.7 fL (80.0-94.0); Mean Platelet Volume 9.7 fL (7.4-10.4); Platelet Count 243 10^3/uL (130-400); Red Blood Cell Count 3.44 10^6/uL (4.70-6.10); Red Cell Dist. Width 11.6 % (11.5-14.5); White Blood Cell Count 6.3 10^3/uL (4.8-10.8)
[2023-12-31 05:49] LABS: Blood Urea Nitrogen 21 mg/dl (9-20); Calcium 7.8 mg/dl (8.4-10.2); Carbon Dioxide 21 mmol/L (22-30); Chloride 103 mmol/L (98-107); Estimated Creatinine Clearance 76 ml/min; Glucose 60 mg/dl (70-99); Magnesium 1.8 mg/dl (1.6-2.3); Potassium 3.7 mmol/L (3.5-5.1); Sodium 135 mmol/L (135-145); eGFR > 60.00
[2023-12-31 06:00] VITALS: BMI 25.2
[2023-12-31] MEDS: LR 1000 IV (06:38)
[2023-12-31 08:22] VITALS: BP 134/76
[2023-12-31] MEDS: PROTONIX IV 40 MG IV (09:36)
[2023-12-31] MEDS: NSS (PRESERVATIVE FREE) 10 ML IV (09:36)
--- NOTE | 2023-12-31 10:43 | W.PN.CRS1 ---
Today's Communication / Plan
-
clear liquid diet with ensure
Assessment/Plan
-
68-year-old with PMH of asthma, BPH s/p TURP 11/2023, colon cancer s/p sigmoidectomy 17 years ago at [facility], who presents with sigmoid volvulus; underwent flexible sigmoidoscopy with reduction of volvulus but identification of necrotic mucosa
and underwent urgent surgery
POD#9 ex lap sigmoidectomy with EEA stapled anastomosis; course complicated by ileus
NGT removed 12/29/23
� Exam improving. Patient will large BM last night. Advance to clears with Ensure. Will hold off on TPN for now. Discussed option if patient unable to tolerate clears.
� Continue pain control with Tylenol and Dilaudid as needed
� Continue DVT PPx with Lovenox
� OOB/IS
� Continue home meds
- Decrease IVFs to 75ml/hr. Will d/c IVFs if tolerating clears.
Subjective Data
Procedure
12/22/2023- Laparotomy with sigmoid resection, takedown of splenic flexure and colorectal anastomosis
Subjective Data
Date of Service: December 31, 2023
Patient states he had a large bowel movement last night. He had another small one this morning. He also has flatus. Overall, he is feeling much better.
Objective Data
-
Vital Signs
Temp Pulse Resp BP Pulse Ox
98.4 F 50 22 134/76 99
12/31/23 08:22 12/31/23 08:22 12/30/23 23:54 12/31/23 08:22 12/31/23 08:22
Intake & Output
12/30/23 12/31/23 01/01/24
06:59 06:59 06:59
Intake Total 2930 / 2930 2760 / 2760
Balance 2930 / 2930 2760 / 2760
Intake:
Oral fluids 960 / 960
IV fluids (Total) 2880 / 2880 1800 / 1800
Amount instilled into GI Tube ( 50 / 50
Total)
[place] Sump 50 / 50
Other:
Number of approximated MODERATE 2 2
amounts of urine
Number of approximated LARGE 1
amounts of urine
Lab Results
12/31/23 04:09
12/31/23 04:09
Physical Exam
-
General: No Acute Distress and AOx3
Abdomen: Soft, Distended (very mild, improved) and Non Tender
Skin: Warm and Dry
Wound: Dressing in Place
Incision: Clear, Dry, Intact
--- NOTE | 2023-12-31 14:33 | CM ---
Chart reviewed home no needs when stable.
Plan; Home no needs.
[2023-12-31 15:39] VITALS: BP 151/79
[2023-12-31] MEDS: LOVENOX 40 MG SC (17:18)
[2023-12-31] MEDS: LR IV (22:01)
--- NOTE | 2023-12-31 22:17 | PTCARENOTE ---
Pt tolerating PO well. Passing flatus. Abdomen still slightly distended. IV fluids capped.
[2023-12-31 23:23] VITALS: BP 150/81
[2024-01-01] MEDS: DILAUDID 0.5 MG IV ×4 (02:12→21:05)
[2024-01-01 05:18] LABS: % Basophils 0.7 % (0-2); % Immature Granulocytes 0.8 % (0-0.5); % Lymphocytes 19.5 % (20.5-51.1); % Monocytes 6.8 % (1.7-9.3); % Neutrophils 67.2 % (42.2-75.2); Absolute Basophils 0.1 10^3/uL (0-0.2); Absolute Eosinophils 0.4 10^3/uL (0-0.7); Absolute Immature Granulocytes 0.1 10^3/uL (0-0.05); Absolute Lymphocytes 1.4 10^3/uL (1.2-3.4); Absolute Monocytes 0.5 10^3/uL (0.1-0.6); Absolute Neutrophils 4.9 10^3/uL (1.4-6.5); Hematocrit 31.2 % (39.0-52.0); Hemoglobin 10.6 g/dL (13.0-18.0); Mean Corpuscular Hgb 29.4 pg (27.0-31.0); Mean Corpuscular Volume 86.7 fL (80.0-94.0); Mean Platelet Volume 9.8 fL (7.4-10.4); Nucleated Red Blood Cells % 0 % (-); Platelet Count 291 10^3/uL (130-400); Red Cell Dist. Width 11.5 % (11.5-14.5); White Blood Cell Count 7.3 10^3/uL (4.8-10.8)
[2024-01-01 05:49] LABS: Blood Urea Nitrogen 12 mg/dl (9-20); Calcium 7.9 mg/dl (8.4-10.2); Carbon Dioxide 26 mmol/L (22-30); Chloride 103 mmol/L (98-107); Estimated Creatinine Clearance 76 ml/min; Glucose 97 mg/dl (70-99); Potassium 3.4 mmol/L (3.5-5.1); Sodium 136 mmol/L (135-145); eGFR > 60.00
[2024-01-01 06:00] VITALS: BMI 24.5
[2024-01-01 07:00] VITALS: BP 161/78
[2024-01-01 07:27] VITALS: BP 161/78
[2024-01-01] MEDS: NSS (PRESERVATIVE FREE) 10 ML IV (08:23)
[2024-01-01] MEDS: PROTONIX IV 40 MG IV (08:23)
--- NOTE | 2024-01-01 09:52 | W.PN.CRS1 ---
Today's Communication / Plan
-
fulls with ensure
simethecone
Assessment/Plan
-
68-year-old with PMH of asthma, BPH s/p TURP 11/2023, colon cancer s/p sigmoidectomy 17 years ago at [facility], who presents with sigmoid volvulus; underwent flexible sigmoidoscopy with reduction of volvulus but identification of necrotic mucosa
and underwent urgent surgery
POD#10 ex lap sigmoidectomy with EEA stapled anastomosis; course complicated by ileus
NGT removed 12/29/23
VSS, WBC 7.3
� Patient will large BM last night. Advance to fulls with chocolate Ensure BID.
� Continue pain control with Tylenol and Dilaudid as needed
� Continue DVT PPx with Lovenox
� OOB/IS
� Continue home meds
- Will add simethicone.
Subjective Data
Procedure
12/22/2023- Laparotomy with sigmoid resection, takedown of splenic flexure and colorectal anastomosis
Subjective Data
Date of Service: January 01, 2024
Patient states he feels well today. He had a large bowel movement last night. He has no nausea or vomiting. He has an appetite this morning and is very hungry. He has flatus. His pain is minimal. He does have some gas pain at night.
Objective Data
-
Vital Signs
Temp Pulse Resp BP Pulse Ox
98.6 F 63 16 161/78 96
01/01/24 07:00 01/01/24 07:00 01/01/24 07:00 01/01/24 07:00 01/01/24 07:00
Intake & Output
12/31/23 01/01/24 01/02/24
06:59 06:59 06:59
Intake Total 2760 / 2760 400 / 400
Balance 2760 / 2760 400 / 400
Intake:
Oral fluids 960 / 960 400 / 400
IV fluids (Total) 1800 / 1800
Other:
Number of approximated MODERATE 2 1
amounts of urine
Number of approximated LARGE 1
amounts of urine
Lab Results
01/01/24 04:11
01/01/24 04:11
Physical Exam
-
General: No Acute Distress and AOx3
Abdomen: Soft, Non Distended and Non Tender
Skin: Warm and Dry
Wound: Dressing in Place
[2024-01-01] MEDS: LR IV (10:49)
[2024-01-01 15:03] VITALS: BP 154/85
[2024-01-01] MEDS: ZOFRAN 4 MG IV (15:06)
[2024-01-01] MEDS: LOVENOX 40 MG SC (18:02)
[2024-01-01] MEDS: LR 1000 IV (20:01)
[2024-01-01 23:46] VITALS: BP 143/82
[2024-01-02] MEDS: DILAUDID 0.5 MG IV ×5 (00:22→23:20)
[2024-01-02 03:05] VITALS: BMI 24.3
[2024-01-02] MEDS: LR 1000 IV ×2 (05:32→16:32)
[2024-01-02 07:00] VITALS: BP 141/82
[2024-01-02 07:58] LABS: Hemoglobin 11.3 g/dL (13.0-18.0); Mean Corp Hgb Conc. 34.2 g/dL (33.0-37.0); Mean Corpuscular Hgb 30.3 pg (27.0-31.0); Mean Corpuscular Volume 88.5 fL (80.0-94.0); Mean Platelet Volume 9.3 fL (7.4-10.4); Platelet Count 294 10^3/uL (130-400); Red Blood Cell Count 3.73 10^6/uL (4.70-6.10); Red Cell Dist. Width 11.8 % (11.5-14.5); White Blood Cell Count 6.6 10^3/uL (4.8-10.8)
[2024-01-02] MEDS: NSS (PRESERVATIVE FREE) 10 ML IV (08:35)
[2024-01-02] MEDS: PROTONIX IV 40 MG IV (08:36)
[2024-01-02 08:50] LABS: ALT (SGPT) 22 U/L (0-50); AST (SGOT) 24 U/L (17-59); Albumin 2.6 g/dl (3.5-5.0); Alkaline Phosphatase 55 U/L (38-126); Blood Urea Nitrogen 11 mg/dl (9-20); Calcium 8.4 mg/dl (8.4-10.2); Carbon Dioxide 28 mmol/L (22-30); Chloride 102 mmol/L (98-107); Direct Bilirubin 0.4 mg/dl (0.0-0.4); Estimated Creatinine Clearance 69 ml/min; Glucose 97 mg/dl (70-99); Magnesium 1.8 mg/dl (1.6-2.3); Phosphorus 4.1 mg/dl (2.5-4.5); Potassium 3.5 mmol/L (3.5-5.1); Sodium 137 mmol/L (135-145); Total Bilirubin 0.4 mg/dl (0.2-1.3); Total Protein 4.8 g/dl (6.3-8.2); Triglycerides 81 mg/dl (10-149); eGFR > 60.00
[2024-01-02 08:54] LABS: Prealbumin (Transthyretin) 7.9 mg/dl (17.6-36.0)
[2024-01-02] MEDS: OMNIPAQUE 50 ML PO (09:22)
[2024-01-02 15:00] VITALS: BP 153/83
--- NOTE | 2024-01-02 15:38 | W.PN.GS2 ---
Addendum entered and electronically signed by Kali Bennett MD 01/02/24 15:50:
I saw and examined the patient.
The [employer]'s note was reviewed and I agree with the note.
Comment: Anayeli improved today but did have emesis overnight. Feels less nauseous, less distended today. CT A/P today c/w ileus (expected). He is passing small flatus. Would keep NPO with sips and chips, start TPN. KUB in am to follow contrast
Original Note:
Today's Communication / Plan
-
Initiate TPN
NPO except sips
Assessment / Plan
-
68-year-old with PMH of asthma, BPH s/p TURP 11/2023, colon cancer s/p sigmoidectomy 17 years ago at [facility], who presents with sigmoid volvulus; underwent flexible sigmoidoscopy with reduction of volvulus but identification of necrotic mucosa
and underwent urgent surgery
POD 11 ex lap sigmoidectomy with EEA stapled anastomosis; course complicated by ileus immediately post operatively. Diet was eventually able to be slowly advanced to low residue over the past week but with recurrent nausea/vomiting yesterday
Repeat CT imaging today consistent with Ileus
Reports symptomatic improvement without further nausea this afternoon. Still passing some flatus/small stools
AFVSS
Labs stable
--NPO with sips of clears
--XR in AM to follow PO contrast
--Director Of Rehabilitation And Wellness reconsulted for TPN recs
--Prolonged NPO with protein calorie malnutrition noted (prealb is 7.9), will initiate TPN and follow closely for refeeding.
--OOB/Ambulate
--Continue IVF
--Multimodal analgesics
--VTE ppx with scd's and lovenox 40mg sq
Subjective Data
-
Date of Service: January 02, 2024
Patient seen and examined at bedside with Dr. Bennett. Vomited last night, but currently denies n/v. Passing some flatus/stools. Reports distention somewhat improving. OOB and ambulating. Pain minimal.
Objective Data
-
Intake and Output
01/01/24 01/02/24 01/03/24
06:59 06:59 06:59
Intake Total 400 / 400 1960 / 1960
Output Total 200 / 200
Balance 400 / 400 1760 / 1760
Intake:
Oral fluids 400 / 400 960 / 960
IV fluids (Total) 1000 / 1000
Output:
Emesis 200 / 200
Other:
Number of approximated MODERATE 1 3
amounts of urine
Vital Signs
Temp Pulse Resp BP Pulse Ox
98.7 F 61 18 153/83 96
01/02/24 15:00 01/02/24 15:00 01/02/24 15:00 01/02/24 15:00 01/02/24 15:00
Lab Results
01/02/24 07:47
01/02/24 07:47
Calcium 8.4 mg/dl (8.4-10.2) 01/02/24 07:47
Phosphorus 4.1 mg/dl (2.5-4.5) 01/02/24 07:47
Magnesium 1.8 mg/dl (1.6-2.3) 01/02/24 07:47
Total Bilirubin 0.4 mg/dl (0.2-1.3) 01/02/24 07:47
Direct Bilirubin 0.4 mg/dl (0.0-0.4) 01/02/24 07:47
AST 24 U/L (17-59) 01/02/24 07:47
ALT 22 U/L (0-50) 01/02/24 07:47
Alkaline Phosphatase 55 U/L (38-126) 01/02/24 07:47
Total Protein 4.8 g/dl (6.3-8.2) L 01/02/24 07:47
Albumin 2.6 g/dl (3.5-5.0) L 01/02/24 07:47
Physical Exam
-
NAD
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
Incision well approximated, colten intact. Dressing dry/intact
[2024-01-02] MEDS: LOVENOX 40 MG SC (17:13)
[2024-01-02] MEDS: Parenteral Nutrition, Central 1240 IV (20:53)
[2024-01-02] MEDS: LIDOCAINE 4% PATCH 1 PATCH TOPICAL (21:48)
--- NOTE | 2024-01-02 21:54 | PTCARENOTE ---
patient c/o of some sudden lower back spasms, coincidentally right after TPN started. [place] COMMERCIAL INSURANCE UNDERWRITER Rubina Sesay notified. patient has no other complaints and PICC site is soft non tender, no swelling. patient given warm blanket for under back and pt stated
it help relieve pain. COMMERCIAL INSURANCE UNDERWRITER ordered lidocaine patch for patient's lower back pain, applied by this RN. assessment ongoing.
[2024-01-02 23:19] VITALS: BP 148/83
[2024-01-02 23:31] LABS: Glucose - Point of Care 141 mg/dl (70-99)
[2024-01-03] MEDS: DILAUDID 0.5 MG IV (02:34)
[2024-01-03] MEDS: LR 1000 IV (02:34)
--- NOTE | 2024-01-03 03:44 | PTCARENOTE ---
lidocaine patch to pt's lower back rubbed off in bed while sleeping. patient is not requesting a replacement patch, states his back is feeling fine now, no pain.
[2024-01-03 04:44] LABS: Hematocrit 32.2 % (39.0-52.0); Hemoglobin 10.8 g/dL (13.0-18.0); Mean Corp Hgb Conc. 33.5 g/dL (33.0-37.0); Mean Corpuscular Hgb 29.3 pg (27.0-31.0); Mean Corpuscular Volume 87.5 fL (80.0-94.0); Mean Platelet Volume 9.5 fL (7.4-10.4); Platelet Count 328 10^3/uL (130-400); Red Blood Cell Count 3.68 10^6/uL (4.70-6.10); Red Cell Dist. Width 11.7 % (11.5-14.5); White Blood Cell Count 7.7 10^3/uL (4.8-10.8)
[2024-01-03 05:09] LABS: Blood Urea Nitrogen 10 mg/dl (9-20); Calcium 8.4 mg/dl (8.4-10.2); Carbon Dioxide 31 mmol/L (22-30); Chloride 100 mmol/L (98-107); Estimated Creatinine Clearance 76 ml/min; Glucose 136 mg/dl (70-99); Potassium 3.6 mmol/L (3.5-5.1); Sodium 137 mmol/L (135-145); eGFR > 60.00
[2024-01-03 05:22] LABS: Glucose - Point of Care 136 mg/dl (70-99)
[2024-01-03 05:53] VITALS: BMI 24.0
[2024-01-03 07:00] VITALS: BP 144/83
[2024-01-03] MEDS: NSS (PRESERVATIVE FREE) 10 ML IV (08:22)
[2024-01-03] MEDS: PROTONIX IV 40 MG IV (08:22)
[2024-01-03] MEDS: LIDOCAINE 4% PATCH 1 PATCH TOPICAL (11:07)
[2024-01-03 12:13] LABS: Glucose - Point of Care 145 mg/dl (70-99)
--- NOTE | 2024-01-03 13:09 | W.PN.GS2 ---
Today's Communication / Plan
-
Clear liquids
Send UA
Assessment / Plan
-
68-year-old with PMH of asthma, BPH s/p TURP 11/2023, colon cancer s/p sigmoidectomy 17 years ago at [facility], who presents with sigmoid volvulus; underwent flexible sigmoidoscopy with reduction of volvulus but identification of necrotic mucosa
and underwent urgent surgery
POD 12 ex lap sigmoidectomy with EEA stapled anastomosis; course complicated by ileus immediately post operatively. Diet was eventually able to be slowly advanced to low residue over the past week but with recurrent nausea/vomiting yesterday
Repeat CT imaging 01/01 consistent with Ileus. Follow up xr today with passage of contrast into colon
Reports symptomatic improvement without further nausea. Still passing some flatus/small stools
Voiding quite frequently
AFVSS
Labs stable
--Ok for clear liquids
--Check UA reflex cx
--TPN renewed, appreciate vice president of product marketing recs
--OOB/Ambulate
--d/c IVF
--Multimodal analgesics
--VTE ppx with scd's and lovenox 40mg sq
Subjective Data
-
Date of Service: January 03, 2024
Patient seen and examined at bedside. Reports he is passing some small stools and flatus. Voiding frequently (q30min), but voiding larger amounts. Denies n/v.
Objective Data
-
Intake and Output
01/02/24 01/03/24 01/04/24
06:59 06:59 06:59
Intake Total 1960 / 1960 4410 / 4410
Output Total 200 / 200 1050 / 1050
Balance 1760 / 1760 3360 / 3360
Intake:
Oral fluids 960 / 960 1490 / 1490
IV fluids (Total) 1000 / 1000 2400 / 2400
TPN/PPN 520 / 520
Output:
Emesis 200 / 200
Urine, Voided 1050 / 1050
Other:
Number of approximated SMALL 2
amounts of urine
Number of approximated MODERATE 3 2
amounts of urine
Vital Signs
Temp Pulse Resp BP Pulse Ox
98.4 F 53 16 144/83 96
01/03/24 07:00 01/03/24 07:00 01/03/24 07:00 01/03/24 07:00 01/03/24 07:00
Lab Results
01/03/24 04:08
01/03/24 04:08
Calcium 8.4 mg/dl (8.4-10.2) 01/03/24 04:08
Phosphorus 4.1 mg/dl (2.5-4.5) 01/02/24 07:47
Magnesium 2.0 mg/dl (1.6-2.3) 01/03/24 04:08
Total Bilirubin 0.4 mg/dl (0.2-1.3) 01/02/24 07:47
Direct Bilirubin 0.4 mg/dl (0.0-0.4) 01/02/24 07:47
AST 24 U/L (17-59) 01/02/24 07:47
ALT 22 U/L (0-50) 01/02/24 07:47
Alkaline Phosphatase 55 U/L (38-126) 01/02/24 07:47
Total Protein 4.8 g/dl (6.3-8.2) L 01/02/24 07:47
Albumin 2.6 g/dl (3.5-5.0) L 01/02/24 07:47
Physical Exam
-
NAD
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
Incision well approximated, colten intact. Dressing dry/intact
[2024-01-03 13:59] LABS: Urine Albumin Negative (Neg - Trace); Urine Bilirubin Negative (Negative); Urine Character Clear (Clear); Urine Color Yellow; Urine Glucose Negative (Negative); Urine Ketone Negative (Negative); Urine Leukocyte Negative (Negative); Urine Nitrite Negative (Negative); Urine Occult Blood Negative (Negative); Urine Specific Gravity 1.015 (<1.030); Urine Urobilinogen Negative (Neg - 1+)
[2024-01-03 15:15] VITALS: BP 141/83
[2024-01-03] MEDS: LOVENOX 40 MG SC (17:32)
[2024-01-03 18:52] LABS: Glucose - Point of Care 126 mg/dl (70-99)
[2024-01-03] MEDS: ProAIR HFA INHALER 2 PUFF INH (19:29)
[2024-01-03] MEDS: Parenteral Nutrition, Central 1460 IV (20:59)
[2024-01-03] MEDS: DILAUDID 1 MG IV (21:02)
[2024-01-03 23:14] LABS: Glucose - Point of Care 134 mg/dl (70-99)
[2024-01-03 23:26] VITALS: BP 141/82
[2024-01-04] MEDS: DILAUDID 0.5 MG IV ×3 (00:28→20:56)
[2024-01-04 05:23] LABS: Hematocrit 32.3 % (39.0-52.0); Hemoglobin 10.9 g/dL (13.0-18.0); Mean Corp Hgb Conc. 33.7 g/dL (33.0-37.0); Mean Corpuscular Hgb 29.9 pg (27.0-31.0); Mean Corpuscular Volume 88.7 fL (80.0-94.0); Mean Platelet Volume 9.6 fL (7.4-10.4); Platelet Count 327 10^3/uL (130-400); Red Blood Cell Count 3.64 10^6/uL (4.70-6.10); Red Cell Dist. Width 12.1 % (11.5-14.5); White Blood Cell Count 7.3 10^3/uL (4.8-10.8)
[2024-01-04 05:43] VITALS: BMI 23.5
[2024-01-04 05:48] LABS: ALT (SGPT) 21 U/L (0-50); AST (SGOT) 20 U/L (17-59); Albumin 2.8 g/dl (3.5-5.0); Alkaline Phosphatase 53 U/L (38-126); Blood Urea Nitrogen 13 mg/dl (9-20); Calcium 8.2 mg/dl (8.4-10.2); Carbon Dioxide 30 mmol/L (22-30); Chloride 105 mmol/L (98-107); Estimated Creatinine Clearance 85 ml/min; Glucose 114 mg/dl (70-99); Magnesium 2.3 mg/dl (1.6-2.3); Phosphorus 4.3 mg/dl (2.5-4.5); Potassium 3.9 mmol/L (3.5-5.1); Sodium 139 mmol/L (135-145); Total Bilirubin 0.2 mg/dl (0.2-1.3); Total Protein 5.1 g/dl (6.3-8.2); Triglycerides 65 mg/dl (10-149); eGFR > 60.00
[2024-01-04 06:58] LABS: Glucose - Point of Care 143 mg/dl (70-99)
[2024-01-04 07:00] VITALS: BP 134/78
[2024-01-04] MEDS: NSS (PRESERVATIVE FREE) 10 ML IV (08:24)
[2024-01-04] MEDS: PROTONIX IV 40 MG IV (08:25)
[2024-01-04] MEDS: LIDOCAINE 4% PATCH TOPICAL (08:25)
--- NOTE | 2024-01-04 13:03 | W.PN.CRS1 ---
Today's Communication / Plan
-
fulls with ensure
continue TPN
reglan 10mg q 6h
Assessment/Plan
-
68-year-old with PMH of asthma, BPH s/p TURP 11/2023, colon cancer s/p sigmoidectomy 17 years ago at [facility], who presents with sigmoid volvulus; underwent flexible sigmoidoscopy with reduction of volvulus but identification of necrotic mucosa
and underwent urgent surgery
POD#11 ex lap sigmoidectomy with EEA stapled anastomosis; course complicated by ileus
NGT removed 12/29/23
VSS, WBC 7.3
� Advance to fulls with chocolate Ensure daily. Continue TPN.
� Continue pain control with Tylenol and Dilaudid as needed
� Continue DVT PPx with Lovenox
� OOB/IS
- VTE ppx with scd's and lovenox 40mg sq
- Add IV Reglan 10mg q6h.
Subjective Data
Procedure
12/22/2023- Laparotomy with sigmoid resection, takedown of splenic flexure and colorectal anastomosis
Subjective Data
Date of Service: January 04, 2024
Patient states he feels 'mostly better'. He is having flatus. He is having loose bowel movements. He is urinating without difficulty. He states yesterday he was more bloated and had more abdominal pain this day went on but overall feels better.
He denies any further nausea or vomiting.
Objective Data
-
Vital Signs
Temp Pulse Resp BP Pulse Ox
97.6 F 56 14 134/78 96
01/04/24 07:00 01/04/24 07:00 01/04/24 07:00 01/04/24 07:00 01/04/24 07:00
Intake & Output
01/03/24 01/04/24 01/05/24
06:59 06:59 06:59
Intake Total 4410 / 4410 1774 / 1774
Output Total 1050 / 1050 1525 / 1525
Balance 3360 / 3360 249 / 249
Intake:
Oral fluids 1490 / 1490 540 / 540
IV fluids (Total) 2400 / 2400
TPN/PPN 520 / 520 1234 / 1234
Output:
Urine, Voided 1050 / 1050 1525 / 1525
Other:
Number of approximated SMALL 2
amounts of urine
Number of approximated MODERATE 2 5
amounts of urine
Lab Results
01/04/24 04:51
01/04/24 04:51
Physical Exam
-
General: No Acute Distress and AOx3
Abdomen: Soft, Non Distended and Tender (Mild around incision)
Wound: Dressing in Place
Incision: Clear, Dry, Intact
[2024-01-04 15:00] VITALS: BP 115/70
[2024-01-04] MEDS: REGLAN 10 MG IV (17:45)
[2024-01-04 17:46] LABS: Glucose - Point of Care 104 mg/dl (70-99)
[2024-01-04] MEDS: LOVENOX 40 MG SC (17:46)
[2024-01-04] MEDS: Parenteral Nutrition, Central 1460 IV (20:48)
[2024-01-04 23:00] VITALS: BP 134/82
[2024-01-04] MEDS: DILAUDID 1 MG IV (23:58)
[2024-01-05 00:08] LABS: Glucose - Point of Care 119 mg/dl (70-99)
[2024-01-05] MEDS: REGLAN IV ×4 (00:12→17:06)
[2024-01-05] MEDS: DILAUDID 0.5 MG IV (03:25)
[2024-01-05 04:24] LABS: % Immature Granulocytes 0.6 % (0-0.5); % Lymphocytes 20.3 % (20.5-51.1); % Monocytes 8.8 % (1.7-9.3); % Neutrophils 69.3 % (42.2-75.2); Absolute Basophils 0.1 10^3/uL (0-0.2); Absolute Immature Granulocytes 0.1 10^3/uL (0-0.05); Absolute Lymphocytes 1.6 10^3/uL (1.2-3.4); Absolute Monocytes 0.7 10^3/uL (0.1-0.6); Absolute Neutrophils 5.4 10^3/uL (1.4-6.5); Hematocrit 34.9 % (39.0-52.0); Hemoglobin 11.6 g/dL (13.0-18.0); Mean Corp Hgb Conc. 33.2 g/dL (33.0-37.0); Mean Corpuscular Hgb 29.9 pg (27.0-31.0); Mean Corpuscular Volume 89.9 fL (80.0-94.0); Mean Platelet Volume 9.6 fL (7.4-10.4); Nucleated Red Blood Cells % 0 % (-); Platelet Count 351 10^3/uL (130-400); Red Blood Cell Count 3.88 10^6/uL (4.70-6.10); Red Cell Dist. Width 12.4 % (11.5-14.5); White Blood Cell Count 7.9 10^3/uL (4.8-10.8)
[2024-01-05 04:45] LABS: Blood Urea Nitrogen 18 mg/dl (9-20); Calcium 8.9 mg/dl (8.4-10.2); Carbon Dioxide 26 mmol/L (22-30); Chloride 104 mmol/L (98-107); Estimated Creatinine Clearance 85 ml/min; Glucose 111 mg/dl (70-99); Magnesium 2.4 mg/dl (1.6-2.3); Potassium 4.4 mmol/L (3.5-5.1); Sodium 138 mmol/L (135-145); eGFR > 60.00
[2024-01-05 04:55] VITALS: BMI 23.1
[2024-01-05 06:07] LABS: Glucose - Point of Care 118 mg/dl (70-99)
--- NOTE | 2024-01-05 06:09 | PTCARENOTE ---
pt refusing Reglan. Pt verbalizes this medication has been giving him diarrhea.
[2024-01-05 07:00] VITALS: BP 121/70
[2024-01-05] MEDS: LIDOCAINE 4% PATCH TOPICAL (08:31)
[2024-01-05] MEDS: PROTONIX IV 40 MG IV (08:32)
[2024-01-05] MEDS: NSS (PRESERVATIVE FREE) 10 ML IV (08:32)
--- NOTE | 2024-01-05 11:27 | W.PN.CRS1 ---
Today's Communication / Plan
-
advance diet to low residue
allow TPN to finish tonight and not renew
Assessment/Plan
-
68-year-old with PMH of asthma, BPH s/p TURP 11/2023, colon cancer s/p sigmoidectomy 17 years ago at [facility], who presents with sigmoid volvulus; underwent flexible sigmoidoscopy with reduction of volvulus but identification of necrotic mucosa
and underwent urgent surgery
POD#14 ex lap sigmoidectomy with EEA stapled anastomosis; ileus as expected
NGT removed 12/29/23
VSS, WBC 7.9
� Advance to low residue with chocolate Ensure daily. Continue TPN until bag runs out. No plans to renew. PICC out tomorrow if tolerates diet.
� Continue pain control with Tylenol and change Dilaudid to Roxicodone PRN.
� Continue DVT PPx with Lovenox
� OOB/IS
- VTE ppx with scd's and lovenox 40mg sq
- Add IV Reglan 10mg q6h.
Subjective Data
Procedure
12/22/2023- Laparotomy with sigmoid resection, takedown of splenic flexure and colorectal anastomosis
Subjective Data
Date of Service: January 05, 2024
Patient states that he is tolerating a diet. He has flatus. He was bloated yesterday but it resolved. He is tolerating a diet.
Objective Data
-
Vital Signs
Temp Pulse Resp BP Pulse Ox
98.1 F 56 16 121/70 96
01/05/24 07:00 01/05/24 07:00 01/05/24 07:00 01/05/24 07:00 01/05/24 07:00
Intake & Output
01/04/24 01/05/24 01/06/24
06:59 06:59 06:59
Intake Total 1774 / 1774 2904 / 2904
Output Total 1525 / 1525 520 / 520
Balance 249 / 249 2384 / 2384
Intake:
Oral fluids 540 / 540 1440 / 1440
TPN/PPN 1234 / 1234 1464 / 1464
Output:
Urine, Voided 1525 / 1525 520 / 520
Other:
Number of approximated MODERATE 5 3
amounts of urine
Number of unmeasured liquid
stools
Rectum 1
Lab Results
01/05/24 04:14
01/05/24 04:13
Physical Exam
-
General: No Acute Distress and AOx3
Abdomen: Soft, Non Distended and Non Tender
Skin: Warm and Dry
Wound: Dressing in Place
[2024-01-05 11:34] LABS: Glucose - Point of Care 120 mg/dl (70-99)
--- NOTE | 2024-01-05 13:23 | CM ---
Diet increased to low residue, TPN to finish and not renew. Discharge Plan of Care: Home with no needs.
[2024-01-05 15:00] VITALS: BP 115/68
[2024-01-05] MEDS: LOVENOX 40 MG SC (17:21)
[2024-01-05 17:23] LABS: Glucose - Point of Care 116 mg/dl (70-99)
[2024-01-05] MEDS: ROXICODONE 5 MG PO ×2 (19:53→21:37)
[2024-01-05 21:18] LABS: Glucose - Point of Care 108 mg/dl (70-99)
[2024-01-05 22:41] VITALS: BP 128/74
[2024-01-06] MEDS: REGLAN IV ×2 (00:01→05:05)
[2024-01-06] MEDS: ROXICODONE 10 MG PO (01:11)
[2024-01-06 06:00] VITALS: BMI 22.8
[2024-01-06 08:14] VITALS: BP 119/73
--- NOTE | 2024-01-06 08:35 | W.PN.CRS1 ---
Today's Communication / Plan
-
discharge
Assessment/Plan
-
68-year-old with PMH of asthma, BPH s/p TURP 11/2023, colon cancer s/p sigmoidectomy 17 years ago at [facility], who presents with sigmoid volvulus; underwent flexible sigmoidoscopy with reduction of volvulus but identification of necrotic mucosa
and underwent urgent surgery
POD#15 ex lap sigmoidectomy with EEA stapled anastomosis; ileus as expected
NGT removed 12/29/23
VSS
� Continue low residue diet.
� Continue pain control with Tylenol and Roxicodone PRN.
� Continue DVT PPx with Lovenox
� OOB/IS
- VTE ppx with scd's and lovenox 40mg sq
- Okay for discharge today. All discharge instructions discussed with patient. Will need follow up with Dr. Garzon in 2 weeks. Continue low residue diet. All questions answered.
Subjective Data
Procedure
12/22/2023- Laparotomy with sigmoid resection, takedown of splenic flexure and colorectal anastomosis
Subjective Data
Date of Service: January 06, 2024
Patient states he feels well. He tolerated a diet. He has no nausea or vomiting. He has bowel movements and flatus. His pain is controlled.
Objective Data
-
Vital Signs
Temp Pulse Resp BP Pulse Ox
98.3 F 64 18 119/73 95
01/06/24 08:14 01/06/24 08:14 01/06/24 08:14 01/06/24 08:14 01/06/24 08:14
Intake & Output
01/05/24 01/06/24 01/07/24
06:59 06:59 06:59
Intake Total 2904 / 2904 462 / 462
Output Total 520 / 520
Balance 2384 / 2384 462 / 462
Intake:
Oral fluids 1440 / 1440 340 / 340
TPN/PPN 1464 / 1464 122 / 122
Output:
Urine, Voided 520 / 520
Other:
Number of approximated MODERATE 3 4
amounts of urine
Number of unmeasured liquid
stools
Rectum 1
Lab Results
01/05/24 04:14
01/05/24 04:13
Physical Exam
-
General: No Acute Distress and AOx3
Abdomen: Soft, Non Distended and Non Tender
Skin: Warm and Dry
[2024-01-06] MEDS: PROTONIX IV 40 MG IV (08:46)
[2024-01-06] MEDS: NSS (PRESERVATIVE FREE) 10 ML IV (08:46)
[2024-01-06] MEDS: LIDOCAINE 4% PATCH TOPICAL (08:49)
--- NOTE | 2024-01-06 08:58 | W.DS.TRANS ---
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
-
Discharge Instructions:
Discharge Diagnosis/Procedures exploratory laparotomy with sigmoidectomy due to
sigmoid vovulus
Diet Low Residue
Activity No strenuous activity
Additional Activity No lifting over 10lbs (gallon of milk)
Driving Restrictions No driving for 1 week
Bathing Restrictions OK to Shower
Wound Care Cover incision with gauze and paper tape until
there is no more discharge. Change daily and
when showering. Okay to leave open to air when
showering. Okay to leave open to air when
discharge is gone. Change with 4x4 gauze and
tape.
Instructions: Low Fiber Diet
Stand-Alone Forms:
Changes to Home Medications: Yes
Discharge Medications:
DC Medications w/original date entered in [employer]
acetaminophen 500 mg tablet (Tylenol Extra Strength) 500 - 1,000 mg PO BIDPRN PRN mild pain 12/22/23
albuterol sulfate 90 mcg/actuation aerosol inhaler 2 puff inhalation R Q4HPRN PRN sob 12/22/23
cholecalciferol (vitamin D3) 50 mcg (2,000 unit) tablet 50 mcg PO DAILY Supplement 12/22/23
melatonin 3 mg tablet 3 mg PO HS PRN sleep 12/22/23
methylphenidate HCl 27 mg tablet,extended release 24 hr 27 mg PO DAILY ADD 12/22/23
niacinamide 500 mg tablet 500 mg PO DAILY Supplement 12/22/23
oxycodone 5 mg tablet 5 mg PO Q6H PRN pain #20 tabs 01/06/24
Home Medication Changes
oxycodone 5 mg tablet 5 mg PO Q6H PRN pain #20 tabs 01/06/24
Pending Results: No
--- NOTE | 2024-01-06 12:55 | CM ---
Patient has been medically cleared for discharge to home with no additional skilled services. Patient arranged for transport home.
== END 2024-01-06 10:15 | disposition home or self-care (01) | DRG 329 ==
LOC: 2 SOUTH 06:39
PROVIDERS: Nurse Practitioner Family; Physician Assistant; Radiology Diagnostic Radiology; Registered Nurse; Surgery; ADMITTING PHYSICIAN Surgery; EMERGENCY PHYSICIAN Emergency Medicine; FAMILY PHYSICIAN Family Medicine; OTHER PHYSICIAN Internal Medicine
PROC: 0DJD8ZZ Inspection of Lower Intestinal Tract, Via Natural or Artificial Opening Endoscopic (ICD-10-PCS; 2023-12-22)
PROC: 0D9N80Z Drainage of Sigmoid Colon with Drainage Device, Via Natural or Artificial Opening Endoscopic (ICD-10-PCS; 2023-12-22)
PROC: 0D9670Z Drainage of Stomach with Drainage Device, Via Natural or Artificial Opening (ICD-10-PCS; 2023-12-22)
PROC: 0DTN0ZZ Resection of Sigmoid Colon, Open Approach (ICD-10-PCS; 2023-12-22)
PROC: 3E0336Z Introduction of Nutritional Substance into Peripheral Vein, Percutaneous Approach (ICD-10-PCS; 2024-01-02)
PROC: 02HV33Z Insertion of Infusion Device into Superior Vena Cava, Percutaneous Approach (ICD-10-PCS; 2024-01-02)
DX: K56.2 Volvulus (principal); K55.039 Acute (reversible) ischemia of large intestine, extent unspecified; I96 Gangrene, not elsewhere classified; E46 Unspecified protein-calorie malnutrition; D62 Acute posthemorrhagic anemia; K91.89 Other postprocedural complications and disorders of digestive system; J45.909 Unspecified asthma, uncomplicated; R33.8 Other retention of urine; F90.9 Attention-deficit hyperactivity disorder, unspecified type; K31.89 Other diseases of stomach and duodenum; K56.7 Ileus, unspecified; K21.9 Gastro-esophageal reflux disease without esophagitis; R13.10 Dysphagia, unspecified; N40.1 Benign prostatic hyperplasia with lower urinary tract symptoms; R50.9 Fever, unspecified; R39.15 Urgency of urination; Z85.038 Personal history of other malignant neoplasm of large intestine; Z90.49 Acquired absence of other specified parts of digestive tract; Z80.0 Family history of malignant neoplasm of digestive organs; Z87.891 Personal history of nicotine dependence; Z90.79 Acquired absence of other genital organ(s); Z85.820 Personal history of malignant melanoma of skin; Z68.25 Body mass index [BMI] 25.0-25.9, adult
CPT/HCPCS: 88307; 71046; 74018; 74019; 74022; 74177; 80048; 80053; 80076; 81003; 82962; 83605; 83735; 84100; 84134; 84478; 85025; 85027; 86850; 86900; 86901; 87070; 87075; 87205; 94640; 96361; 96374; 96375; 96376; 97116; 97163; 99285; J1335; Q9967

== ENCOUNTER → 2024-05-27 16:03 | Outpatient (REF) | payer OTHER, SELFPAY | LOC: RAD 16:03 | PROVIDERS: ATTENDING PHYSICIAN Surgery; FAMILY PHYSICIAN Family Medicine | DX: K43.2 Incisional hernia without obstruction or gangrene (principal) | CPT/HCPCS: 74177; Q9967 ==

== ENCOUNTER 2024-06-01 22:56 | Inpatient (IN) | payer OTHER, SELFPAY ==
[2024-06-01] VITALS (7 sets, daily range): BP systolic 134–158; BP diastolic 80–97; BMI 23.3
[2024-06-01] MEDS: NSS 1000 IV (18:21)
[2024-06-01 18:26] LABS: % Basophils 0.7 % (0-2); % Eosinophils 0.5 % (0-6); % Immature Granulocytes 0.2 % (0-0.5); % Lymphocytes 27.7 % (20.5-51.1); % Neutrophils 62.9 % (42.2-75.2); Absolute Lymphocytes 1.6 10^3/uL (1.2-3.4); Absolute Monocytes 0.5 10^3/uL (0.1-0.6); Absolute Neutrophils 3.6 10^3/uL (1.4-6.5); Hematocrit 42.1 % (39.0-52.0); Hemoglobin 14.5 g/dL (13.0-18.0); Mean Corp Hgb Conc. 34.4 g/dL (33.0-37.0); Mean Corpuscular Hgb 30.3 pg (27.0-31.0); Mean Corpuscular Volume 88.1 fL (80.0-94.0); Mean Platelet Volume 9.1 fL (7.4-10.4); Nucleated Red Blood Cells % 0 % (-); Platelet Count 200 10^3/uL (130-400); Red Blood Cell Count 4.78 10^6/uL (4.70-6.10); Red Cell Dist. Width 12.9 % (11.5-14.5); White Blood Cell Count 5.7 10^3/uL (4.8-10.8)
[2024-06-01] MEDS: DILAUDID 0.5 MG IV (18:32)
[2024-06-01] MEDS: OMNIPAQUE 50 ML PO (18:34)
[2024-06-01] MEDS: ZOFRAN 4 MG IV (18:37)
--- NOTE | 2024-06-01 18:38 | ED.GENMED ---
History of Present Illness
General
Chief Complaint: Abdominal Pain
Source: patient
Exam Limitations: none
Time Seen by Provider: 06/01/24 18:03
History of Present Illness
History of Present Illness:
This is a 68 year old male that comes in with c/o severe abd pain. States that his pain started about 3 hours ago. States that he was out for a walk and his stomach started to ache. States that when he got home he had a small BM and the pain in his
abd continued to get worse. States that he had a headache. Denies any fever, chills, chest pain, SOB, nausea, vomiting, diarrhea, dizziness, urinary burning.
Past History
Past History
ED Past Medical History: Asthma, Cancer (Colon CA, Skin Cancer), Psychiatric (Depression, ) and Other (urinary retention, ADHD, ADD)
ED Past Surgical History: Bowel resection (for colon CA), Urological (TURP) and Other (Hernia repair, Partial colectomy for Colon CA, Right vein stripping, Partial colectomy for Volvulus)
Social History
Tobacco: Former smoker
Alcohol: None
Personal:
Living: alone
Employment: Employed
Family History
Family History: Other
Review of Systems
Review of Systems
All Other Systems: ROS reviewed and negative except as documented in HPI and ROS
Constitutional: Reports no symptoms; Denies fever or chills
EENT: Reports no symptoms
Respiratory: Reports no symptoms; Denies cough or trouble breathing
Cardiac: Reports no symptoms; Denies chest pain
ABD/GI: Reports abdominal pain; Denies nausea, vomiting or diarrhea
: Reports no symptoms; Denies dysuria, frequency or urgency
Musculoskeletal: Reports no symptoms
Skin: Reports no symptoms
Neurological: Reports headache; Denies dizzy
Psychiatric: Reports no symptoms
Phy Exam
General Physical Exam
General Presentation: mild distress
General age: appears stated age
General Skin: warm and dry
General Habitus: normal
General Mental: alert
General Hydration: dry mucous membranes
ENT Exam
ENT Exam: TM's normal, pharynx normal and neck supple
Eye Exam
Eye Exam: EOMI
Cardiovascular Exam
Cardiovascular Exam: regular rate/rhythm, no edema, no murmur and normal peripheral pulses
Pulmonary Exam
Pulmonary Exam: lungs clear, no respiratory distress, no rales, chest non tender, no crackles, no rhonchi, no wheezing and no cough
Gastrointestinal Exam
Gastrointestinal Exam: soft, no organomegaly, no pulsatile mass, non distended, tender (Mid abd tenderness with palpation) and other (Very hypoactive bowel sounds)
Musculoskeletal Exam
Musculoskeletal Exam: full ROM and no edema
Skin Exam
Skin Exam: normal color, warm/dry, no rash and no petechia
Psychiatric Exam
Psychiatric Exam: normal mood/affect
Course
Orders/Labs/Results
Orders:
Orders
06/01/24 18:16
Complete Blood Count/With Diff Urgent
Comprehensive Metabolic Panel Urgent
Lipase Urgent
06/01/24 18:21
0.9% Sodium Chloride 1000 ml [Nss] 1,000 ml IV BOLUS
06/01/24 18:25
0.9% Sodium Chloride 1000 ml [Nss] 1,000 ml IV BOLUS
HYDROmorphone [Dilaudid] 0.5 mg IV NOW STA
Iohexol [Omnipaque] See Protocol PO NOW STA
Ondansetron Injectable [Zofran] 4 mg IV NOW STA
06/01/24 18:26
CT Abd/pel W Iv And Oral Contr Urgent
Comment:
Reason For Exam: Mid abd pain
06/01/24 19:20
HYDROmorphone [Dilaudid] 1 mg IV NOW STA
06/01/24 19:26
Lactic Acid Urgent
Abnormal Lab Results
06/01/24
18:16
BUN 32 H mg/dl
(9-20)
Glucose 113 H mg/dl
(70-99)
06/01/24 18:16
06/01/24 18:16
Dehydration. Hyperglycemia. Lactic acid normal at 1.1, Lipase normal at 93
Vital Signs
Initial and Last Documented VS:
Initial Vital Signs
Temp Pulse Resp BP Pulse Ox
97.6 F 63 20 158/89 100
06/01/24 17:24 06/01/24 17:24 06/01/24 17:24 06/01/24 17:24 06/01/24 17:24
Last Documented Vital Signs
Temp Pulse Resp BP Pulse Ox
97.5 F 66 20 137/82 96
06/01/24 18:22 06/01/24 20:30 06/01/24 17:24 06/01/24 20:00 06/01/24 20:30
MDM/Problems Addressed
Differential Diagnosis Includes:
Bowel obstruction.
MDM/Problems Addressed:
This is a 68 year old male that comes in with c/o severe abd pain. States that this started when he was out for a walk and it continued to get worse.
Will check labs and CT abd/pelvis. Will give IV fluids and medicate for pain.
Back into see patient. Explained that he has a Small bowel obstruction. Will admit patient and give further pain medication. Hospitalist notified.
Chronic conditions affecting care: Previous abdomnial surgery
Acute Exacerbation and/or Progression of Chronic Illness: Previous abdomnial surgery
*Radiology
Radiology exam reviewed: radiology read reviewed ([id number] small bowel obstruction with associated mesenteric edema and transition point likely within the left lower quadrant. Small fat- containing ventral hernia, unchanged form prior)
*Pulse Oximetry
Patient hypoxic: no
*EKG
Interpreted by ED Provider?: NA
Rate: EKG- N/A
*Folder Inspector Interpretation
Rate: normal
Heart Rate: 60
Rhythm: sinus
*Critical Care Note
Total Time (30-74mins, 75-104mins- exclusive of procedures): Not Applicable
ED Attending Note
-
Portions of this chart may have been created with voice recognition software.� Occasional wrong word or��sound alike� substitutions may have occurred due to the inherent limitations of voice recognition software.
Discharge Plan
Departure
Patient Disposition: Admit
Date of Disposition: 06/01/24
Time of Disposition: 22:32
Admit to: Med/Surg
Presentation/result/management discussed w/ accepting MD/DO: Hospitalist
Patient with high blood pressure during this ER visit?: Yes
Condition: Good
Covid-19: Not Applicable
Discharge Problem:
SBO (small bowel obstruction)
Prescriptions:
No Action
albuterol sulfate 90 mcg/actuation Hfa Aerosol Inhaler
2 puff INHALATION R Q4HPRN PRN (Reason: sob)
cholecalciferol (vitamin D3) 50 mcg (2,000 unit) Tablet
50 mcg PO DAILY
methylphenidate HCl 27 mg Tablet Extended Release 24hr
27 mg PO DAILY
Patient Comments:
06/01/2024: last filled 06/01/24, 30 tabs for 30 days from [id number]
ibuprofen 200 mg Tablet
600 mg PO HS
docusate sodium [Colace] 100 mg Capsule
100 mg PO .3-4X WEEKLY
fluticasone propionate 50 mcg/actuation spray,suspension
1 spray INTRANASAL DAILY
Vitamin B-3
1 tab PO DAILY
Referrals:
Krish Walters MD [Family Provider] -
Interventions
Interventions:
*Risk Screen - Suicide Last Done: 06/01/24 17:24
*General Assessment Last Done: 06/01/24 17:24
*Neglect/Abuse Screening Last Done: 06/01/24 17:24
*ED COVID-19 Vaccine History Last Done: 06/01/24 18:23
OT-Aodddi-[id number] Assessment Last Done: 06/01/24 18:27
Discharge Date and Time
Print Language: YAKUT
[2024-06-01 18:43] LABS: ALT (SGPT) 26 U/L (0-50); AST (SGOT) 39 U/L (17-59); Albumin 4.7 g/dl (3.5-5.0); Alkaline Phosphatase 73 U/L (38-126); Blood Urea Nitrogen 32 mg/dl (9-20); Calcium 10.1 mg/dl (8.4-10.2); Carbon Dioxide 28 mmol/L (22-30); Chloride 99 mmol/L (98-107); Estimated Creatinine Clearance 64 ml/min; Glucose 113 mg/dl (70-99); Lipase 93 U/L (23-300); Sodium 138 mmol/L (135-145); Total Bilirubin 0.7 mg/dl (0.2-1.3); Total Protein 7.1 g/dl (6.3-8.2); eGFR > 60.00
[2024-06-01] MEDS: DILAUDID 1 MG IV ×2 (19:27→22:49)
[2024-06-01 19:44] LABS: Lactic Acid 1.1 mmol/L (0.7-2.0)
--- NOTE | 2024-06-01 22:50 | HPS.HSE ---
Family Physician
-
Family Physician: Krish Walters
Chief Complaint
-
abdominal pain
History of Present Illness
68-year-old male past medical history of colon cancer status post sigmoidectomy 17 years ago, sigmoid volvulus status post reduction of volvulus in December hernia repair, skin cancer, BPH status post TURP in November, asthma, depression, ADHD, presenting
with severe abdominal pain starting 3 hours ago while on a walk. When he got home he had a small bowel movement and pain got worse. He did have a headache. Denies fevers, chills, chest pain, shortness of breath, nausea vomiting, urinary symptoms.
Patient was admitted in December for sigmoid volvulus. He underwent decompression via sigmoidoscopy and subsequent laparotomy with sigmoid resection takedown of splenic flexure and colorectal anastomosis.
His father had Parkinson disease and also had bowel obstruction and he is concerned that this may be contributing.
He denies smoking or alcohol use.
Patient takes ibuprofen for headache.
Medical History
Past Medical History
Past Medical History: Reports Other ( colon cancer status post sigmoidectomy 17 years ago, sigmoid volvulus status post reduction of volvulus in December hernia repair, skin cancer, BPH status post TURP in November, asthma, depression, ADHD, )
Past Surgical History: Reports Other ( Bowel resection (for colon CA), Urological (TURP) and Other (Hernia repair, Partial colectomy for Colon CA, Right vein stripping, Partial colectomy for Volvulus))
Social History
Tobacco: Non-smoker
Alcohol: None
Drug: None
Family History
Family History: Not pertinent
Allergies / Home Medications
Allergies reflects when Allergies were last updated in [facility].
Home Medications with original date entered in [facility]
Allergy/Medication List:
Allergies
Allergy/AdvReac Type Severity Reaction Status Date / Time
No Known Allergies Allergy Verified 06/01/24 17:27
Home Medications
albuterol sulfate 90 mcg/actuation aerosol inhaler 2 puff inhalation R Q4HPRN PRN sob 12/22/23
cholecalciferol (vitamin D3) 50 mcg (2,000 unit) tablet 50 mcg PO DAILY Supplement 12/22/23
methylphenidate HCl 27 mg tablet,extended release 24 hr 27 mg PO DAILY ADD 12/22/23
Vitamin B-3 1 tab PO DAILY 06/01/24
docusate sodium 100 mg capsule (Colace) 100 mg PO .3-4X WEEKLY 06/01/24
fluticasone propionate 50 mcg/actuation nasal spray,suspension 1 spray intranasal DAILY 06/01/24
ibuprofen 200 mg tablet 600 mg PO HS 06/01/24
Review of Systems
-
History Source: Patient
A 12 point ROS was completed and negative except as noted: Yes
Constitutional: Reports No Symptoms
EENT: Reports No Symptoms
Respiratory: Reports No Symptoms
Cardiac: Reports No Symptoms
Abdomen/GI: Reports See HPI
: Reports No Symptoms
Musculoskeletal: Reports No Symptoms
Skin: Reports No Symptoms
Neurological: Reports No Symptoms
Endocrine: Reports No Symptoms
Hematologic/Lymphatic: Reports No Symptoms
Psych: Reports No Symptoms
Physical Exam
Vital Signs
Vital Signs
Temp Pulse Resp BP Pulse Ox
97.5 F 67 18 141/97 97
06/01/24 18:22 06/01/24 22:48 06/01/24 22:48 06/01/24 22:48 06/01/24 22:48
Physical Exam
General: Well Developed, Well Nourished and No Apparent Distress
HEENT: NormoCephalic, Moist mucous membranes and Atraumatic
Respiratory: Clear
Cardiac: S1/S2 and Regular Rhythm; No Murmur or Rub
GI: Soft, Non Distended, Normal Bowel Sounds and Tender (diffusely ); No Organomegaly
Rectal: Deferred by Provider
Musculoskeletal: No Clubbing, No Cyanosis and No Edema
Skin: No Rash
Neuro: Nonfocal/grossly intact
Laboratory Results
-
06/01/24 18:16
06/01/24 18:16
Laboratory Results
Lactic Acid 1.1 mmol/L (0.7-2.0) 06/01/24 19:26
Total Bilirubin 0.7 mg/dl (0.2-1.3) 06/01/24 18:16
AST 39 U/L (17-59) 06/01/24 18:16
ALT 26 U/L (0-50) 06/01/24 18:16
Alkaline Phosphatase 73 U/L (38-126) 06/01/24 18:16
Lipase 93 U/L (23-300) 06/01/24 18:16
Data Reviewed
-
Lab Data: Labs Reviewed by me
Old Records: Reviewed
Impression/Plan
-
IMPRESSION:
PLAN:
# High-grade small bowel obstruction with associated mesenteric edema likely from prior extensive sigmoid surgeries
-CT abdomen shows transition point within the left lower quadrant
-N.p.o., can continue oral medications
-IV fluids
-Zofran, Dilaudid
-General Surgery consulted
Colon cancer status post sigmoidectomy 17 years ago
Sigmoid volvulus status post reduction of volvulus in December and laparotomy with sigmoid resection, takedown of splenic flexure and colorectal anastomosis
History of hernia repair
Skin cancer
BPH status post TURP
Asthma
-Continue albuterol
Depression
ADHD
-Continue methylphenidate
Chronic headaches possibly sinus related
-Continue ibuprofen
Full code
DVT prophylaxis�heparin
N.p.o.
[2024-06-02] VITALS: BP 150/88
[2024-06-02 00:35] VITALS: BP 158/85; BMI 23.4
[2024-06-02] MEDS: NSS 1000 IV ×3 (01:06→23:45)
--- NOTE | 2024-06-02 01:31 | PTCARENOTE ---
Pt arrived to 3W from ED via stretcher at approximately 0040. Pt able to ambulate into room. Pt AOx3, VSS. Pt oriented to unit and call sandra within reach.
[2024-06-02] MEDS: DILAUDID 1 MG IV ×5 (02:24→20:33)
[2024-06-02 07:15] LABS: % Basophils 0.2 % (0-2); % Immature Granulocytes 0.4 % (0-0.5); % Lymphocytes 6.8 % (20.5-51.1); % Monocytes 6.6 % (1.7-9.3); Absolute Lymphocytes 0.7 10^3/uL (1.2-3.4); Absolute Monocytes 0.7 10^3/uL (0.1-0.6); Hematocrit 43.5 % (39.0-52.0); Hemoglobin 14.7 g/dL (13.0-18.0); Mean Corp Hgb Conc. 33.8 g/dL (33.0-37.0); Mean Corpuscular Hgb 30.3 pg (27.0-31.0); Mean Corpuscular Volume 89.7 fL (80.0-94.0); Mean Platelet Volume 9.2 fL (7.4-10.4); Nucleated Red Blood Cells % 0 % (-); Platelet Count 195 10^3/uL (130-400); Red Blood Cell Count 4.85 10^6/uL (4.70-6.10); Red Cell Dist. Width 13.1 % (11.5-14.5); White Blood Cell Count 10.5 10^3/uL (4.8-10.8)
[2024-06-02 07:50] LABS: ALT (SGPT) 25 U/L (0-50); AST (SGOT) 36 U/L (17-59); Albumin 4.3 g/dl (3.5-5.0); Alkaline Phosphatase 69 U/L (38-126); Blood Urea Nitrogen 31 mg/dl (9-20); Calcium 9.7 mg/dl (8.4-10.2); Carbon Dioxide 27 mmol/L (22-30); Chloride 101 mmol/L (98-107); Estimated Creatinine Clearance 69 ml/min; Glucose 106 mg/dl (70-99); Potassium 4.2 mmol/L (3.5-5.1); Sodium 139 mmol/L (135-145); Total Bilirubin 0.8 mg/dl (0.2-1.3); Total Protein 6.5 g/dl (6.3-8.2); eGFR > 60.00
[2024-06-02 07:53] VITALS: BP 157/79
[2024-06-02] MEDS: VITAMIN D3 (cholecalciferol) 50 MCG PO (08:47)
[2024-06-02] MEDS: HEPARIN 5000 UNITS SC ×2 (08:49→20:33)
--- NOTE | 2024-06-02 11:07 | CON.GS ---
Consultation
-
Reason for Consultation: Small bowel obstruction
Medical History
-
Chief Complaint: Abdominal pain, nausea vomiting
History of Present Illness:
Patient is a 68-year-old male presenting with the acute onset of abdominal pain, distention, nausea vomiting.
Reviewing medical records patient has a past abdominal surgical history notable for sigmoidectomy at [facility], this past December he developed sigmoid volvulus managed with sigmoidectomy with Dr. Garzon. Delayed postoperative GI
recovery/ileus which was managed conservatively with NG tube decompression and subsequent return of GI function with about a 2-week hospitalization.
Patient states that he is generally done well since hospitalization. He transition back to a regular diet and was utilizing fiber supplementation to assist with bowel regularity. He has taken note of occasional mild distention and cramps after his
meals particularly over the past few weeks. He had a CT abdomen/pelvis as an outpatient on 05/27/2024 for evaluation of recently noted incisional hernia. States that after ingesting this oral contrast he had bloating and cramps for about 24 to 36
hours which then resolved over the past weekend and he returned to eating normally. Bowels are moving regularly as well. Yesterday a.m. he had a bowl of yogurt with granola and blueberries. An hour or 2 after this while going on his daily walk he
began to take note of abdominal cramping and distention. It deteriorated in severity throughout the day prompting subsequent emergency department evaluation.
This a.m. he continues with nausea and just recently vomited after returning from abdominal x-ray imaging. No recent flatus or bowel movement. His last bowel movement was yesterday prior to symptoms starting.
Past Medical History
Past Medical History: Other (Asthma, BPH, history of melanoma)
Past Surgical History: Other (Sigmoidectomy for colon cancer, subsequent sigmoidectomy for volvulus, TURP, prior Mohs procedures)
Social History
Tobacco: Former Smoker
Alcohol: None
Family History
Family History: Reviewed & Noncontributory
Allergies / Home Medications
Allergy/AdvReac Type Severity Reaction Status Date / Time
No Known Allergies Allergy Verified 06/01/24 17:27
�Medication �Instructions �Recorded �Confirmed �Type
albuterol sulfate 90 mcg/actuation 2 puff inhalation R Q4HPRN PRN sob 12/22/23 06/01/24 History
aerosol inhaler
cholecalciferol (vitamin D3) 50 50 mcg PO DAILY Supplement 12/22/23 06/01/24 History
mcg (2,000 unit) tablet
methylphenidate HCl 27 mg 27 mg PO DAILY ADD 12/22/23 06/01/24 History
tablet,extended release 24 hr
Vitamin B-3 1 tab PO DAILY Supplement 06/01/24 06/01/24 History
docusate sodium 100 mg capsule 100 mg PO .3-4X WEEKLY Constipation 06/01/24 06/01/24 History
(Colace)
fluticasone propionate 50 1 spray intranasal DAILY Allergies 06/01/24 06/01/24 History
mcg/actuation nasal
spray,suspension
ibuprofen 200 mg tablet 600 mg PO HS Pain 06/01/24 06/01/24 History
Review of Systems
-
History Source: Patient
All other systems: Negative unless noted
A 10 point review of systems was completed, and was negative except as per HPI.
Physical Exam
Vital Signs
Temp Pulse Resp BP Pulse Ox
98.2 F 61 16 157/79 94
06/02/24 07:53 06/02/24 07:53 06/02/24 07:53 06/02/24 07:53 06/02/24 07:53
06/01/24 06/02/24 06/03/24
06:59 06:59 06:59
Actual Weight 76.204 kg
Body Mass Index (BMI) 23.4
Lab Results
06/02/24 06:45
06/02/24 06:45
WBC 10.5 10^3/uL (4.8-10.8) 06/02/24 06:45
Hgb 14.7 g/dL (13.0-18.0) 06/02/24 06:45
Hct 43.5 % (39.0-52.0) 06/02/24 06:45
Plt Count 195 10^3/uL (130-400) 06/02/24 06:45
Abs Immat Gran (auto) 0.0 10^3/uL (0-0.05) 06/02/24 06:45
Neutrophils % 86.0 % (42.2-75.2) H 06/02/24 06:45
Physical Exam
General: Well Developed, Well Nourished and Other (No acute distress but uncomfortable appearing)
HEENT: Normocephalic, Anicteric and Moist Mucous Membranes
Respiratory: Non Labored Respirations
GI: Soft, Tender (Mild generalized tenderness, nonlocalizing. No percussion tenderness. No rebound, no rigidity, no guarding.), Distended (Mildly distended with tympany on percussion,) and Other (Small reducible supraumbilical incisional hernia)
Skin: Warm
Neuro: AO x 3
Psych: Calm
Data Reviewed
-
CT Scan: Image Personally Visualized and interpreted, Report Reviewed by me and Discussed with Patient
Assessment / Plan
-
Assessment: 68-year-old male with partial small bowel obstruction likely secondary to adhesions in setting of previous colon surgeries and possibly exacerbated by fibrous dietary intake for breakfast yesterday
CT imaging personally reviewed. Gastric distention with oral contrast and some oral contrast opacifying small bowel. Distal small bowel with short area of decompression. Tapering transition point without abrupt change. No radiographic findings
strongly suggestive of small bowel volvulus or internal hernia. No pneumatosis, no free air. Air and stool throughout the colon.
Follow-up abdominal x-ray today with previous oral contrast from CT imaging now throughout the ascending and transverse colon confirming partial rather than complete obstruction. Persistent small bowel dilation.
No clinical or radiographic signs of immediate bowel compromise or threat.
Plan: Initial medical management with bowel rest, IV fluid hydration and supportive care as well as antiemetics and pain control
If recurrent nausea vomiting or worsening abdominal pains would recommend NG tube placement
Will follow
--- NOTE | 2024-06-02 11:47 | W.PN.HOSP.TC ---
Today's Communication/Plan
-
monitor vitals
see plan
NPO
IVF
antiemetics
if persistently nauseous and vomiting then will need NG tube for decompression
surgery following
Assessment / Plan
Assessment / Plan
General: Well Developed, Well Nourished and No Apparent Distress
HEENT: NormoCephalic, Moist mucous membranes and Atraumatic
Respiratory: Clear
Cardiac: S1/S2 and Regular Rhythm; No Murmur or Rub
GI: Soft, Non Distended, Normal Bowel Sounds and Tender (diffusely )
Rectal: Deferred by Provider
Musculoskeletal: No Clubbing, No Cyanosis and No Edema
Skin: No Rash
Neuro: Nonfocal/grossly intact
High-grade small bowel obstruction with associated mesenteric edema likely from prior extensive sigmoid surgeries
-CT abdomen shows transition point within the left lower quadrant
-N.p.o.,
-IV fluids
-Zofran, Dilaudid
-General Surgery following
If persistently nauseous and throwing up then will need NG tube for decompression
Colon cancer status post sigmoidectomy 17 years ago
Sigmoid volvulus status post reduction of volvulus in December and laparotomy with sigmoid resection, takedown of splenic flexure and colorectal anastomosis
History of hernia repair
Skin cancer
BPH status post TURP
Asthma
-Continue albuterol
Depression
ADHD
-Continue methylphenidate
Chronic headaches possibly sinus related
-Continue ibuprofen
Full code
DVT prophylaxis�heparin
N.p.o.
Anticipated Discharge: Today
Subjective/Interval History
-
Date of Service: June 02, 2024
has pain
Objective Data
-
Labs:
Laboratory Results
06/02/24
06:45
WBC 10.5
Hgb 14.7
Hct 43.5
Plt Count 195
Sodium 139
Potassium 4.2
Chloride 101
Carbon Dioxide 27
BUN 31 H
Creatinine 1.1
Glucose 106 H
Calcium 9.7
Total Bilirubin 0.8
AST 36
ALT 25
Alkaline Phosphatase 69
Vital Signs:
Vital Signs
Temp Pulse Resp BP Pulse Ox
98.2 F 61 16 157/79 94
06/02/24 07:53 06/02/24 07:53 06/02/24 07:53 06/02/24 07:53 06/02/24 07:53
[2024-06-02] MEDS: COMPAZINE 5 MG IV (12:29)
[2024-06-02 16:19] VITALS: BP 165/84
[2024-06-02] MEDS: DILAUDID 0.5 MG IV ×2 (17:42→23:45)
[2024-06-02 19:57] LABS: Hepatitis C Antibody Negative (Negative)
[2024-06-02 23:50] VITALS: BP 136/71
[2024-06-03] MEDS: DILAUDID 0.5 MG IV (05:22)
[2024-06-03 07:39] LABS: % Basophils 0.5 % (0-2); % Eosinophils 0.5 % (0-6); % Immature Granulocytes 0.2 % (0-0.5); % Lymphocytes 22.3 % (20.5-51.1); % Monocytes 9.5 % (1.7-9.3); Absolute Lymphocytes 1.2 10^3/uL (1.2-3.4); Absolute Monocytes 0.5 10^3/uL (0.1-0.6); Absolute Neutrophils 3.7 10^3/uL (1.4-6.5); Hematocrit 37.9 % (39.0-52.0); Hemoglobin 12.9 g/dL (13.0-18.0); Mean Corpuscular Hgb 30.7 pg (27.0-31.0); Mean Corpuscular Volume 90.2 fL (80.0-94.0); Mean Platelet Volume 9.2 fL (7.4-10.4); Nucleated Red Blood Cells % 0 % (-); Platelet Count 169 10^3/uL (130-400); Red Cell Dist. Width 13.1 % (11.5-14.5); White Blood Cell Count 5.5 10^3/uL (4.8-10.8)
[2024-06-03 07:47] VITALS: BP 144/73
[2024-06-03] MEDS: NSS 1000 IV ×2 (07:48→12:02)
[2024-06-03] MEDS: HEPARIN 5000 UNITS SC ×2 (07:49→20:19)
[2024-06-03 07:52] LABS: Blood Urea Nitrogen 24 mg/dl (9-20); Calcium 8.8 mg/dl (8.4-10.2); Carbon Dioxide 26 mmol/L (22-30); Chloride 105 mmol/L (98-107); Estimated Creatinine Clearance 69 ml/min; Glucose 83 mg/dl (70-99); Potassium 4.1 mmol/L (3.5-5.1); Sodium 138 mmol/L (135-145); eGFR > 60.00
--- NOTE | 2024-06-03 10:44 | W.PN.GS2 ---
Addendum entered and electronically signed by Freddie Yanez MD 06/03/24 13:52:
Patient seen and examined.
Feels slightly improved with less abdominal discomfort. No nausea or vomiting. No flatus or BM. Afebrile. Ambulating. Voiding.
Gen: NAD
Abd: soft, tender to palpation primarily in lower abdomen, mild distension, non-peritoneal (no rebound or guarding), midline incision well healed, palpable umbilical/incisional hernia reducible
Patient is a 68 yo M with partial small bowel obstruction likely secondary to adhesions in setting of previous colon surgeries and possibly exacerbated by fibrous dietary intake
CT imaging consistent with SBO with follow-up abdominal x-ray today oral contrast from CT imaging throughout the ascending and transverse colon confirming partial rather than complete obstruction. Persistent small bowel dilation.
No stools, minimal flatus. Pain present but improving, nausea resolved.
Plan:
-- Continue medical management with bowel rest (NPO with sips of clears), IV fluid hydration and supportive care as well as antiemetics and pain control
-- Plan XR this AM to evaluate
Original Note:
Today's Communication / Plan
-
XR of abd
Assessment / Plan
-
68-year-old male with partial small bowel obstruction likely secondary to adhesions in setting of previous colon surgeries and possibly exacerbated by fibrous dietary intake
CT imaging consistent with SBO with follow-up abdominal x-ray today oral contrast from CT imaging throughout the ascending and transverse colon confirming partial rather than complete obstruction. Persistent small bowel dilation.
No stools, minimal flatus. Pain present but improving, nausea resolved.
Plan:
Continue medical management with bowel rest (NPO with sips of clears), IV fluid hydration and supportive care as well as antiemetics and pain control
Plan XR this am to evaluate
Subjective Data
-
Date of Service: June 03, 2024
Patient seen and examined at bedside with Dr. Yanez. Denies n/v. Has passed very minimal flatus, no BM's. Intermittent pain.
Objective Data
-
Intake and Output
06/02/24 06/03/24 06/04/24
06:59 06:59 06:59
Other:
Number of approximated SMALL 6
amounts of urine
Number of approximated MODERATE 1
amounts of urine
Number of approximated LARGE 2
amounts of urine
Vital Signs
Temp Pulse Resp BP Pulse Ox
98.3 F 58 16 144/73 94
06/03/24 07:47 06/03/24 07:47 06/03/24 07:47 06/03/24 07:47 06/03/24 07:47
Lab Results
06/03/24 06:38
06/03/24 06:38
Calcium 8.8 mg/dl (8.4-10.2) 06/03/24 06:38
Total Bilirubin 0.8 mg/dl (0.2-1.3) 06/02/24 06:45
AST 36 U/L (17-59) 06/02/24 06:45
ALT 25 U/L (0-50) 06/02/24 06:45
Alkaline Phosphatase 69 U/L (38-126) 06/02/24 06:45
Total Protein 6.5 g/dl (6.3-8.2) 06/02/24 06:45
Albumin 4.3 g/dl (3.5-5.0) 06/02/24 06:45
Physical Exam
-
NAD
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
--- NOTE | 2024-06-03 10:46 | W.PN.HOSP.TC ---
Today's Communication/Plan
-
monitor vitals
see plan
cw conservative measures with pain control,IVF
surgery following
Assessment / Plan
Assessment / Plan
General: Well Developed, Well Nourished and No Apparent Distress
HEENT: NormoCephalic, Moist mucous membranes and Atraumatic
Respiratory: Clear
Cardiac: S1/S2 and Regular Rhythm; No Murmur or Rub
GI: Soft, Non Distended, Normal Bowel Sounds and Tender (diffusely )
Rectal: Deferred by Provider
Musculoskeletal: No Clubbing, No Cyanosis and No Edema
Skin: No Rash
Neuro: Nonfocal/grossly intact
High-grade small bowel obstruction with associated mesenteric edema likely from prior extensive sigmoid surgeries
-CT abdomen shows transition point within the left lower quadrant
repeat xray 06/03 with SBO; currently not passing flatus nor BM
-N.p.o.,
-IV fluids
-Zofran, Dilaudid
-General Surgery following
If persistently nauseous and throwing up then will need NG tube for decompression
Colon cancer status post sigmoidectomy 17 years ago
Sigmoid volvulus status post reduction of volvulus in December and laparotomy with sigmoid resection, takedown of splenic flexure and colorectal anastomosis
History of hernia repair
Skin cancer
BPH status post TURP
Asthma
-Continue albuterol
Depression
ADHD
-Continue methylphenidate
Chronic headaches possibly sinus related
-Continue ibuprofen
Full code
DVT prophylaxis�heparin
N.p.o.
Anticipated Discharge: > 48 hours
Subjective/Interval History
-
Date of Service: June 03, 2024
deneis nausea
Objective Data
-
Labs:
Laboratory Results
06/03/24
06:38
WBC 5.5
Hgb 12.9 L
Hct 37.9 L
Plt Count 169
Sodium 138
Potassium 4.1
Chloride 105
Carbon Dioxide 26
BUN 24 H
Creatinine 1.1
Glucose 83
Calcium 8.8
Vital Signs:
Vital Signs
Temp Pulse Resp BP Pulse Ox
98.3 F 58 16 144/73 94
06/03/24 07:47 06/03/24 07:47 06/03/24 07:47 06/03/24 07:47 06/03/24 07:47
[2024-06-03] MEDS: DILAUDID 1 MG IV ×3 (11:06→20:19)
--- NOTE | 2024-06-03 12:51 | CM ---
Reviewed chart, met with patient to obtain information for assessment. Patient stated that he lives with his adult daughter in a three story home with two steps to enter. He described himself as independent with all ADLs, personal care, dressing and
bathing. 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 He is able to drive and can get to his appointments and do all of his own shopping.
Patient denied any DME at home.
He has never had VN services.
He has not been to a SNF.
Patient has a prescription plan and goes to [facility] in [place] for all of his medications.
Patient's PCP, Krish Walters
Patient feels functionally that he is at baseline and would like to return home when medically stable.
Plan: Case management will continue to follow and assist with discharge planning. Home when stable.
[2024-06-03 15:00] VITALS: BP 135/75
[2024-06-03] MEDS: FLUSH (NSS) 1 FLUSH IV (20:20)
[2024-06-03 23:00] VITALS: BP 143/67
[2024-06-04] MEDS: DILAUDID 1 MG IV ×2 (00:09→20:57)
[2024-06-04] MEDS: NSS 1000 IV ×2 (03:18→17:45)
[2024-06-04 07:49] VITALS: BP 133/76
[2024-06-04 08:12] LABS: % Basophils 0.6 % (0-2); % Eosinophils 1.8 % (0-6); % Immature Granulocytes 0.2 % (0-0.5); % Lymphocytes 22.6 % (20.5-51.1); % Monocytes 8.4 % (1.7-9.3); % Neutrophils 66.4 % (42.2-75.2); Absolute Eosinophils 0.1 10^3/uL (0-0.7); Absolute Lymphocytes 1.1 10^3/uL (1.2-3.4); Absolute Monocytes 0.4 10^3/uL (0.1-0.6); Absolute Neutrophils 3.2 10^3/uL (1.4-6.5); Hematocrit 37.4 % (39.0-52.0); Hemoglobin 12.6 g/dL (13.0-18.0); Mean Corp Hgb Conc. 33.7 g/dL (33.0-37.0); Mean Corpuscular Hgb 30.5 pg (27.0-31.0); Mean Corpuscular Volume 90.6 fL (80.0-94.0); Mean Platelet Volume 9.5 fL (7.4-10.4); Nucleated Red Blood Cells % 0 % (-); Platelet Count 167 10^3/uL (130-400); Red Blood Cell Count 4.13 10^6/uL (4.70-6.10); Red Cell Dist. Width 12.8 % (11.5-14.5); White Blood Cell Count 4.9 10^3/uL (4.8-10.8)
[2024-06-04] MEDS: HEPARIN 5000 UNITS SC ×2 (08:13→20:37)
[2024-06-04] MEDS: DILAUDID 0.5 MG IV ×2 (08:13→17:44)
[2024-06-04 08:36] LABS: Blood Urea Nitrogen 23 mg/dl (9-20); Calcium 8.7 mg/dl (8.4-10.2); Carbon Dioxide 23 mmol/L (22-30); Chloride 104 mmol/L (98-107); Estimated Creatinine Clearance 69 ml/min; Glucose 68 mg/dl (70-99); Potassium 4.2 mmol/L (3.5-5.1); Sodium 139 mmol/L (135-145); eGFR > 60.00
--- NOTE | 2024-06-04 11:34 | W.PN.HOSP.TC ---
Today's Communication/Plan
-
Monitor vital signs see plan
Start clears
Monitor symptoms
Pain control
Assessment / Plan
Assessment / Plan
General: Well Developed, Well Nourished and No Apparent Distress
HEENT: NormoCephalic, Moist mucous membranes and Atraumatic
Respiratory: Clear
Cardiac: S1/S2 and Regular Rhythm; No Murmur or Rub
GI: Soft, Non Distended, Normal Bowel Sounds and Tender (diffusely )
Rectal: Deferred by Provider
Musculoskeletal: No Clubbing, No Cyanosis and No Edema
Skin: No Rash
Neuro: Nonfocal/grossly intact
High-grade small bowel obstruction with associated mesenteric edema likely from prior extensive sigmoid surgeries
-CT abdomen shows transition point within the left lower quadrant
repeat xray 06/03 with SBO; currently not passing flatus nor BM
-Now started on clears, x-ray showing resolving SBO
-IV fluids
-Zofran, Dilaudid
-General Surgery following
If persistently nauseous and throwing up then will need NG tube for decompression
Colon cancer status post sigmoidectomy 17 years ago
Sigmoid volvulus status post reduction of volvulus in December and laparotomy with sigmoid resection, takedown of splenic flexure and colorectal anastomosis
History of hernia repair
Skin cancer
BPH status post TURP
Asthma
-Continue albuterol
Depression
ADHD
-Continue methylphenidate
Chronic headaches possibly sinus related
-Continue ibuprofen
Full code
DVT prophylaxis�heparin
Anticipated Discharge: 24 - 48 hours
Subjective/Interval History
-
Date of Service: June 04, 2024
denies nausea
Objective Data
-
Labs:
Laboratory Results
06/04/24
07:30
WBC 4.9
Hgb 12.6 L
Hct 37.4 L
Plt Count 167
Sodium 139
Potassium 4.2
Chloride 104
Carbon Dioxide 23
BUN 23 H
Creatinine 1.1
Glucose 68 L
Calcium 8.7
Vital Signs:
Vital Signs
Temp Pulse Resp BP Pulse Ox
98.4 F 54 16 133/76 133
06/04/24 07:49 06/04/24 07:49 06/04/24 07:49 06/04/24 07:49 06/04/24 07:49
I&O
06/03/24 06/04/24 06/05/24
06:59 06:59 06:59
Intake Total 960 / 960
Balance 960 / 960
--- NOTE | 2024-06-04 12:59 | W.PN.GS2 ---
Addendum entered and electronically signed by Dov Vogt MD 06/04/24 13:38:
I saw and examined the patient.
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
Comment:
Doing well, denies N/V. Passing flatus and feeling less bloated. No BM yet. Voiding. Still having pain, controlled with medication, significantly improved overall.
AFVSS, ABD soft, mildly distended, mildly to moderately TTP in the bilateral lower quadrants, no rebound or guarding
AXR with contrast to colon, nonobstructive pattern
� Okay for trial of clears; instructed to go slow, if any N/V or bloating, revert back to n.p.o.
� Continue pain control, moderate narcotic use in context of SBO
� Continue DVT PPx
� Encourage OOB/IS
Appreciate hospitalist
Original Note:
Today's Communication / Plan
-
Trial of clears
Assessment / Plan
-
68-year-old male with partial small bowel obstruction likely secondary to adhesions in setting of previous colon surgeries and possibly exacerbated by fibrous dietary intake
CT imaging consistent with SBO with follow up XR showing some improvement, contrast into the colon but not yet passing stool. +Flatus. Some symptomatic improvement (slow)
Plan:
Continue medical management: IV fluid hydration and supportive care as well as antiemetics and pain control
Trial of clear liquids
Medical management as per primary team
Subjective Data
-
Date of Service: June 04, 2024
Patient seen and examined at bedside with Dr. Vogt. Denies n/v. Passing some flatus now. Pain still present but somewhat improved.
Objective Data
-
Intake and Output
06/03/24 06/04/24 06/05/24
06:59 06:59 06:59
Intake Total 960 / 960
Balance 960 / 960
Intake:
Oral fluids 40 / 40
IV fluids (Total) 840 / 840
IV piggybacks 80 / 80
Other:
Number of approximated SMALL 6
amounts of urine
Number of approximated MODERATE 3
amounts of urine
Number of approximated LARGE 2 2
amounts of urine
Vital Signs
Temp Pulse Resp BP Pulse Ox
98.4 F 54 16 133/76 133
06/04/24 07:49 06/04/24 07:49 06/04/24 07:49 06/04/24 07:49 06/04/24 07:49
Lab Results
06/04/24 07:30
06/04/24 07:30
Calcium 8.7 mg/dl (8.4-10.2) 06/04/24 07:30
Total Bilirubin 0.8 mg/dl (0.2-1.3) 06/02/24 06:45
AST 36 U/L (17-59) 06/02/24 06:45
ALT 25 U/L (0-50) 06/02/24 06:45
Alkaline Phosphatase 69 U/L (38-126) 06/02/24 06:45
Total Protein 6.5 g/dl (6.3-8.2) 06/02/24 06:45
Albumin 4.3 g/dl (3.5-5.0) 06/02/24 06:45
Physical Exam
-
NAD
ABD soft, mild distention, lower abdominal tenderness, [employer], small reducible supraumbilical hernia
[2024-06-04 15:00] VITALS: BP 112/59
[2024-06-04 23:30] VITALS: BP 141/76
[2024-06-05] MEDS: DILAUDID 1 MG IV (01:33)
[2024-06-05 07:00] VITALS: BP 135/70
[2024-06-05] MEDS: HEPARIN 5000 UNITS SC ×2 (09:22→21:12)
--- NOTE | 2024-06-05 10:54 | W.PN.HOSP.TC ---
Today's Communication/Plan
-
Monitor vital signs
see plan
X-ray pending
Continue with clears
Surgery following
Pain control
Assessment / Plan
Assessment / Plan
General: Well Developed, Well Nourished and No Apparent Distress
HEENT: NormoCephalic, Moist mucous membranes and Atraumatic
Respiratory: Clear
Cardiac: S1/S2 and Regular Rhythm; No Murmur or Rub
GI: Soft, Non Distended, Normal Bowel Sounds and mild Tender (diffusely )
Rectal: Deferred by Provider
Musculoskeletal: No Clubbing, No Cyanosis and No Edema
Skin: No Rash
Neuro: Nonfocal/grossly intact
High-grade small bowel obstruction with associated mesenteric edema likely from prior extensive sigmoid surgeries
-CT abdomen shows transition point within the left lower quadrant
repeat xray 06/03 with SBO; now passing flatus and had a small BM
-Now started on clears, x-ray showing resolving SBO. X-ray today pending
-Zofran, Dilaudid
-General Surgery following
If persistently nauseous and throwing up then will need NG tube for decompression
Colon cancer status post sigmoidectomy 17 years ago
Sigmoid volvulus status post reduction of volvulus in December and laparotomy with sigmoid resection, takedown of splenic flexure and colorectal anastomosis
History of hernia repair
Skin cancer
BPH status post TURP
Asthma
-Continue albuterol
Depression
ADHD
-Continue methylphenidate
Chronic headaches possibly sinus related
-Continue ibuprofen
Full code
DVT prophylaxis�heparin
Anticipated Discharge: 24 - 48 hours
Subjective/Interval History
-
Date of Service: June 05, 2024
Denies nausea
Objective Data
-
Labs:
Laboratory Results
06/05/24
06:00
WBC Pending
Hgb Pending
Hct Pending
Plt Count Pending
Sodium Pending
Potassium Pending
Chloride Pending
Carbon Dioxide Pending
BUN Pending
Creatinine Pending
Glucose Pending
Calcium Pending
Vital Signs:
Vital Signs
Temp Pulse Resp BP Pulse Ox
98.3 F 58 16 135/70 95
06/05/24 07:00 06/05/24 07:00 06/05/24 07:00 06/05/24 07:00 06/05/24 07:00
I&O
06/04/24 06/05/24 06/06/24
06:59 06:59 06:59
Intake Total 960 / 960 1260 / 1260
Balance 960 / 960 1260 / 1260
--- NOTE | 2024-06-05 11:38 | W.PN.GS2 ---
Addendum entered and electronically signed by Dov Vogt MD 06/05/24 12:57:
I saw and examined the patient.
The NARCOTICS AGENT's note was reviewed and I agree with the note.
Comment:
Denies N/V. Passing some flatus. Small BM. Voiding. Still having pain, requiring medication.
AFVSS, ABD soft, mildly distended, mildly TTP in the bilateral lower quadrants (improved from yesterday), no rebound or guarding
� Continue clears due to persistent pain; although pain is improving, I explained that pain should completely resolve if obstruction has resolved; therefore, elevating my concern for incomplete resolution of obstruction
�No acute surgical intervention currently indicated; no evidence of peritonitis or hemodynamic instability to suggest bowel compromise
�Will repeat AXR to track progress of contrast and distention
� Continue pain control, moderate narcotic use in context of SBO
� Continue DVT PPx
� Encourage OOB/IS
Appreciate hospitalist
Original Note:
Today's Communication / Plan
-
XR abd
Assessment / Plan
-
68-year-old male with partial small bowel obstruction likely secondary to adhesions in setting of previous colon surgeries and possibly exacerbated by fibrous dietary intake
CT imaging consistent with SBO with follow up XR showing some improvement on 06/04, contrast into the colon but not yet passing stool. +Flatus and small hard stool. Some symptomatic improvement (slow)
AFVSS
Declining labs today but agreeable to have labs done tomorrow
Plan:
Continue medical management
XR abd today
Continue clear liquids
Analgesics/antiemetics
Medical management as per primary team
Subjective Data
-
Date of Service: June 05, 2024
Patient seen and examined at bedside with Dr. Vogt. Denies n/v but still with pain to the lower abdomen. Does note it is gradually improving. Still passing some gas and had a small bm
Objective Data
-
Intake and Output
06/04/24 06/05/24 06/06/24
06:59 06:59 06:59
Intake Total 960 / 960 1260 / 1260
Balance 960 / 960 1260 / 1260
Intake:
Oral fluids 40 / 40 1200 / 1200
IV fluids (Total) 840 / 840
IV piggybacks 80 / 80 60 / 60
Other:
Number of approximated MODERATE 3 5
amounts of urine
Number of approximated LARGE 2
amounts of urine
Vital Signs
Temp Pulse Resp BP Pulse Ox
98.3 F 58 16 135/70 95
06/05/24 07:00 06/05/24 07:00 06/05/24 07:00 06/05/24 07:00 06/05/24 07:00
Calcium 8.7 mg/dl (8.4-10.2) 06/04/24 07:30
Total Bilirubin 0.8 mg/dl (0.2-1.3) 06/02/24 06:45
AST 36 U/L (17-59) 06/02/24 06:45
ALT 25 U/L (0-50) 06/02/24 06:45
Alkaline Phosphatase 69 U/L (38-126) 06/02/24 06:45
Total Protein 6.5 g/dl (6.3-8.2) 06/02/24 06:45
Albumin 4.3 g/dl (3.5-5.0) 06/02/24 06:45
Physical Exam
-
NAD
ABD soft, mild distention, lower abdominal tenderness (improved), NARCOTICS AGENT, small reducible supraumbilical hernia
[2024-06-05 15:00] VITALS: BP 150/82
[2024-06-05] MEDS: DULCOLAX 10 MG RECTAL (15:22)
--- NOTE | 2024-06-05 15:43 | CHAP ---
Mr. Lowe was welcoming - said he is 'doing better every day.' Daily meditation is important to him. Has no needs at this time - I assured him of our on-going availability.
[2024-06-05 23:54] VITALS: BP 152/82
[2024-06-06] MEDS: DILAUDID 1 MG IV (01:11)
[2024-06-06 07:21] LABS: % Basophils 0.6 % (0-2); % Eosinophils 7.5 % (0-6); % Immature Granulocytes 0.4 % (0-0.5); % Lymphocytes 38.6 % (20.5-51.1); % Monocytes 10.3 % (1.7-9.3); % Neutrophils 42.6 % (42.2-75.2); Absolute Eosinophils 0.4 10^3/uL (0-0.7); Absolute Lymphocytes 1.8 10^3/uL (1.2-3.4); Absolute Monocytes 0.5 10^3/uL (0.1-0.6); Hematocrit 37.6 % (39.0-52.0); Hemoglobin 13.2 g/dL (13.0-18.0); Mean Corp Hgb Conc. 35.1 g/dL (33.0-37.0); Mean Corpuscular Hgb 30.8 pg (27.0-31.0); Mean Corpuscular Volume 87.6 fL (80.0-94.0); Nucleated Red Blood Cells % 0 % (-); Platelet Count 185 10^3/uL (130-400); Red Blood Cell Count 4.29 10^6/uL (4.70-6.10); Red Cell Dist. Width 12.7 % (11.5-14.5); White Blood Cell Count 4.6 10^3/uL (4.8-10.8)
[2024-06-06 07:27] VITALS: BP 126/80
[2024-06-06] MEDS: HEPARIN 5000 UNITS SC (07:40)
[2024-06-06 08:49] LABS: Blood Urea Nitrogen 14 mg/dl (9-20); Carbon Dioxide 27 mmol/L (22-30); Chloride 104 mmol/L (98-107); Estimated Creatinine Clearance 69 ml/min; Glucose 89 mg/dl (70-99); Potassium 3.9 mmol/L (3.5-5.1); Sodium 142 mmol/L (135-145); eGFR > 60.00
--- NOTE | 2024-06-06 10:24 | W.PN.HOSP.TC ---
Addendum entered and electronically signed by Devendra Foster MD 06/06/24 23:12:
Attending Addendum-
I saw and evaluated the patient. I reviewed the resident�s note and agree with findings and plan as documented in the resident�s note. Sub: feels great. suzy po. passing flatus and had BM yesterday. No abd pain N/V. Full 12 point ROS reviewed and
negative except as documented Exam: Vitals reviewed in chart GEN-NAD heart RRR lungs clear abd soft NT ND pos BS LE no edema
Plan:
# High-grade small bowel obstruction with associated mesenteric edema
- suzy po advance to LR diet
- did not require NG decomp or surgery
- resolved
- surgery on board
- DC in am
#Asthma
-Continue albuterol
#ADHD
-Continue methylphenidate
# Chronic headaches possibly sinus related
-Continue ibuprofen
Full code
DVT prophylaxis�heparin
Dispo DC in am
Time spent coordinating care, review of plan of care with resident, personally reviewed records in EMR, med rec, consults, notes, labs, radiology, d/w nursing � 55 mins
Original Note:
Today's Communication/Plan
-
Advance diet as tolerated
Pain management
Assessment / Plan
Assessment / Plan
Assessment:
68 male past medical history of colon cancer status post sigmoidectomy 17 years ago, volvulus reduction in December presents for abdominal pain and found to have partial small bowel obstruction.
Plan:
#Partial small bowel obstruction
On admission, CT abdomen shows transition point within the left lower quadrant
repeat xray 06/03 with partial SBO
Repeat abdominal x-ray 06/05/2024 demonstrates interval improvement and partial small bowel obstruction
Currently passing flatus and had a multiple formed bowel movement
Surgery advance diet to low residue, advance as tolerates
Zofran, Dilaudid as needed for symptom management
General Surgery following, does not believe there is any acute surgical intervention needed
#Asthma
Continue albuterol
#ADHD
Continue methylphenidate
#Chronic headaches
Patient reports headaches at night, unresponsive to Tylenol
ibuprofen ordered as needed for headaches
Full code
DVT prophylaxis�heparin
Diet: Low residue
Anticipated Discharge: Within 24 hours
Subjective/Interval History
-
Date of Service: June 06, 2024
No acute events overnight
Reports improvement in abdominal pain
Passing flatus and had 2 bowel movements yesterday
Objective Data
-
Labs:
Laboratory Results
06/06/24
06:48
WBC 4.6 L
Hgb 13.2
Hct 37.6 L
Plt Count 185
Sodium 142
Potassium 3.9
Chloride 104
Carbon Dioxide 27
BUN 14
Creatinine 1.1
Glucose 89
Calcium 9.0
Vital Signs:
Vital Signs
Temp Pulse Resp BP Pulse Ox
98.4 F 60 17 126/80 93
06/06/24 07:27 06/06/24 07:27 06/06/24 07:27 06/06/24 07:27 06/06/24 07:27
I&O
06/05/24 06/06/24 06/07/24
06:59 06:59 06:59
Intake Total 1260 / 1260 540 / 540 240 / 240
Balance 1260 / 1260 540 / 540 240 / 240
Review of Systems
-
History Source: Patient
Constitutional: Reports No Symptoms
Respiratory: Reports No Symptoms
Cardiac: Reports No Symptoms
Abdomen/GI: Reports Abdominal Pain; Denies Nausea, Vomiting, Diarrhea or Constipated
Physical Exam
-
General: Well Developed, No Apparent Distress, Comfortable and Conversant
Respiratory: Clear to Auscultation
Cardiac: Regular Rhythm and S1/S2
GI: Soft, Nondistended, Normal Bowel Sounds (Hyperactive bowel sounds) and Tender (Diffuse, generalized tenderness)
Musculoskeletal: No Edema
Skin: Warm and Dry
Neuro: Awake, Alert, Oriented and AO x 3
Psych: Calm and Intact Judgement/Insight
Data Reviewed
-
Diagnostic Radiology: Report Reviewed by me and Discussed with Physician
Labs: Labs Reviewed by me and Discussed with Physician
--- NOTE | 2024-06-06 10:39 | CM ---
Reviewed chart, patient has been noted to be independently performing ADLs and personal cares such as toileting. Patient's daughter is at home with patient and he would like to return there at discharge.
Plan: Case management will continue to follow and assist with discharge planning. Home when medically cleared.
--- NOTE | 2024-06-06 11:36 | W.PN.GS2 ---
Addendum entered and electronically signed by Yan Heard MD 06/06/24 11:59:
I saw and examined the patient independently.
The Vehicle Delivery Worker's note was reviewed and I agree with the note, assessment and plan except where noted below.
Comment: This is a 68-year-old male with partial small bowel obstructions likely adhesive in nature secondary to previous colon surgeries as well as a exploratory laparotomy and small bowel resection for volvulus who presents with his first small
bowel obstruction. He appears to have improved with nonoperative management.
Okay for a low residue diet.
Out of bed and ambulate.
Anticipate discharge home tomorrow pending clinical course. Patient is already seeing Dr. Yanez for an incisional hernia, he can follow-up with him regarding this bowel obstruction as well.
Original Note:
Today's Communication / Plan
-
Advance diet
Assessment / Plan
-
68-year-old male with partial small bowel obstruction likely secondary to adhesions in setting of previous colon surgeries and possibly exacerbated by fibrous dietary intake
CT imaging consistent with SBO with follow up XRs with improvement, contrast into colon
Pain resolved, passing flatus/stools
AFVSS
Labs stable
Plan:
Continue medical management
Advance to LRD
Analgesics/antiemetics
Medical management as per primary team
Anticipate ready for d/c tomorrow from GS standpoint if tolerating diet without return of pain
Subjective Data
-
Date of Service: June 06, 2024
Patient seen and examined at bedside with Dr. Heard. Denies n/v. Tolerating clears. Pain much improved if not resolved. Passing flatus and BM x2
Objective Data
-
Intake and Output
06/05/24 06/06/24 06/07/24
06:59 06:59 06:59
Intake Total 1260 / 1260 540 / 540 240 / 240
Balance 1260 / 1260 540 / 540 240 / 240
Intake:
Oral fluids 1200 / 1200 540 / 540 240 / 240
IV piggybacks 60 60
Other:
Number of approximated MODERATE 5 2
amounts of urine
Vital Signs
Temp Pulse Resp BP Pulse Ox
98.4 F 60 17 126/80 93
06/06/24 07:27 06/06/24 07:27 06/06/24 07:27 06/06/24 07:27 06/06/24 07:27
Lab Results
06/06/24 06:48
06/06/24 06:48
Calcium 9.0 mg/dl (8.4-10.2) 06/06/24 06:48
Total Bilirubin 0.8 mg/dl (0.2-1.3) 06/02/24 06:45
AST 36 U/L (17-59) 06/02/24 06:45
ALT 25 U/L (0-50) 06/02/24 06:45
Alkaline Phosphatase 69 U/L (38-126) 06/02/24 06:45
Total Protein 6.5 g/dl (6.3-8.2) 06/02/24 06:45
Albumin 4.3 g/dl (3.5-5.0) 06/02/24 06:45
Physical Exam
-
NAD
ABD soft, ND, NT, RESPITE WORKER, small reducible supraumbilical hernia
[2024-06-06 15:10] VITALS: BP 116/78
[2024-06-06] MEDS: MOTRIN 600 MG PO (17:03)
[2024-06-06] MEDS: HEPARIN SC (20:07)
[2024-06-06 23:05] VITALS: BP 139/77
[2024-06-06] MEDS: MELATONIN 3 MG PO (23:11)
[2024-06-07] MEDS: DILAUDID 0.5 MG IV (02:01)
[2024-06-07 07:05] VITALS: BP 128/71
[2024-06-07 07:13] LABS: % Basophils 0.7 % (0-2); % Eosinophils 7.7 % (0-6); % Immature Granulocytes 0.4 % (0-0.5); % Monocytes 11.2 % (1.7-9.3); Absolute Eosinophils 0.4 10^3/uL (0-0.7); Absolute Monocytes 0.5 10^3/uL (0.1-0.6); Absolute Neutrophils 1.7 10^3/uL (1.4-6.5); Hemoglobin 12.8 g/dL (13.0-18.0); Mean Corp Hgb Conc. 34.6 g/dL (33.0-37.0); Mean Corpuscular Hgb 29.7 pg (27.0-31.0); Mean Corpuscular Volume 85.8 fL (80.0-94.0); Mean Platelet Volume 9.4 fL (7.4-10.4); Nucleated Red Blood Cells % 0 % (-); Platelet Count 194 10^3/uL (130-400); Red Blood Cell Count 4.31 10^6/uL (4.70-6.10); Red Cell Dist. Width 12.9 % (11.5-14.5); White Blood Cell Count 4.5 10^3/uL (4.8-10.8)
[2024-06-07] MEDS: HEPARIN SC (07:29)
[2024-06-07] MEDS: MOTRIN 600 MG PO (08:51)
[2024-06-07 09:19] LABS: Blood Urea Nitrogen 21 mg/dl (9-20); Calcium 9.3 mg/dl (8.4-10.2); Carbon Dioxide 25 mmol/L (22-30); Chloride 104 mmol/L (98-107); Estimated Creatinine Clearance 64 ml/min; Glucose 89 mg/dl (70-99); Sodium 143 mmol/L (135-145); eGFR > 60.00
--- NOTE | 2024-06-07 10:08 | W.PN.HOSP.TC ---
Addendum entered and electronically signed by Devendra Foster MD 06/08/24 00:52:
Attending Addendum-
I saw and evaluated the patient. I reviewed the resident�s note and agree with findings and plan as documented in the resident�s note. Sub: ready to go home. passing flatus and had BM. No abd pain N/V. Full 12 point ROS reviewed and negative except
as documented Exam: Vitals reviewed in chart GEN-NAD heart RRR lungs clear abd soft NT ND pos BS LE no edema
Plan:
# High-grade small bowel obstruction with associated mesenteric edema
- resolved
- suzy LR diet
- did not require NG decomp or surgery
- resolved
- surgery on board
- DC
#Asthma
-Continue albuterol
#ADHD
-Continue methylphenidate
# Chronic headaches possibly sinus related
-Continue ibuprofen
Full code
DVT prophylaxis�heparin
Dispo DC home
Time spent coordinating care, DC planning, review of DC plan of care with resident, transition of care, review of records, med rec/scripts sent electronically, consults, notes, d/w consultants, nursing, surgery and CM� 35 mins
Original Note:
Today's Communication/Plan
-
Discharge home
Per general surgery, follow-up in 4 weeks but will return to ED if symptoms worsen
Assessment / Plan
Assessment / Plan
Assessment:
68 male past medical history of colon cancer status post sigmoidectomy 17 years ago, volvulus reduction in December presents for abdominal pain and found to have partial small bowel obstruction.
Plan:
#Partial small bowel obstruction
On admission, CT abdomen shows transition point within the left lower quadrant
repeat xray 06/03 with partial SBO
Repeat abdominal x-ray 06/05/2024 demonstrates interval improvement and partial small bowel obstruction
Currently passing flatus and had a multiple formed bowel movement
Surgery advanced diet to low residue, has been tolerating diet well
Zofran, Dilaudid as needed for symptom management
General Surgery following, does not believe there is any acute surgical intervention needed
Will follow-up with general surgery in 4 weeks after discharge
#Asthma
Continue albuterol
#ADHD
Continue methylphenidate
#Chronic headaches
Patient reports headaches at night, unresponsive to Tylenol
ibuprofen ordered as needed for headaches
Full code
DVT prophylaxis�heparin
Diet: Low residue
Anticipated Discharge: Today
Subjective/Interval History
-
Date of Service: June 07, 2024
Patient reports difficulty sleeping due to being in the hospital and headache
Objective Data
-
Labs:
Laboratory Results
06/07/24
06:38
WBC 4.5 L
Hgb 12.8 L
Hct 37.0 L
Plt Count 194
Sodium 143
Potassium 4.0
Chloride 104
Carbon Dioxide 25
BUN 21 H
Creatinine 1.2
Glucose 89
Calcium 9.3
Vital Signs:
Vital Signs
Temp Pulse Resp BP Pulse Ox
97.9 F 54 14 128/71 94
06/07/24 07:05 06/07/24 07:05 06/07/24 07:05 06/07/24 07:05 06/07/24 07:05
I&O
06/06/24 06/07/24 06/08/24
06:59 06:59 06:59
Intake Total 540 / 540 1680 / 1680
Balance 540 / 540 1680 / 1680
Review of Systems
-
History Source: Patient
Constitutional: Reports No Symptoms
Respiratory: Reports No Symptoms
Cardiac: Reports No Symptoms
Abdomen/GI: Reports Abdominal Pain; Denies Nausea or Vomiting
Physical Exam
-
General: Well Developed, Well Nourished, No Apparent Distress and Conversant
Respiratory: Clear to Auscultation
Cardiac: Regular Rhythm and S1/S2
GI: Soft, Nondistended, Normal Bowel Sounds and Tender (Slightly tender to palpation in left lower and right lower quadrants)
Musculoskeletal: No Edema
Skin: Warm and Dry
Neuro: Awake, Alert, Oriented and AO x 3
Psych: Calm and Intact Judgement/Insight
Data Reviewed
-
Labs: Labs Reviewed by me and Discussed with Physician
[2024-06-07 12:12] VITALS: BP 120/78
--- NOTE | 2024-06-07 14:18 | CM ---
CM provided IMM to Masood earlier today. Masood was discharged to home with his daughter. No needs identified.
--- NOTE | 2024-06-07 17:11 | W.DCSUMMARY ---
Addendum entered and electronically signed by Devendra Foster MD 06/08/24 00:52:
Read, reviewed, and agree. See same day progress note for additional details.
Priyank Foster MD
Original Note:
Documented by User: Bobo Gooden DO, Resident 06/07/24 17:59
Discharge Summary
Discharge Data
Date of Admission: 06/01/24
Date of Discharge: 06/07/24
-
Pending Results: No
Hospital Course
Discharging Physician : Cristian Gooden
Disposition : Home
Primary care physician : Dr. Krish Walters
Principal Discharge diagnosis : Partial small bowel obstruction
Chronic Discharge diagnosis : Asthma, attention deficit disorder, chronic headaches
Hospital Course : 68-year-old male past ministry of colon cancer status post sigmoidectomy 17 years ago, sigmoid volvulus reduction in December of this year, hernia repair, skin cancer, BPH status post TURP, asthma, depression, ADHD presents for severe
abdominal pain of about 3 hours duration. In the ED patient received CT with IV and oral contrast which demonstrated high-grade small bowel obstruction. Patient was made n.p.o. admitted to floors, started on IV fluids and given supportive care
with Dilaudid and antiemetics. Surgery was consulted who decided that no acute surgical intervention was required. Patient was kept n.p.o., kept on bowel rest and received serial abdominal x-rays every day, which showed interval improvement of his
small bowel obstruction. Patient began passing gas and having formed bowel movements. After period of bowel rest, patient's diet was advanced as tolerated to low residue. After being cleared by surgery, patient was discharged home with MiraLAX as
a bowel regimen, he will follow-up outpatient with surgery in 4 to 6 weeks. Patient was discharged home.
Important imaging findings :
06/01/[address] with IV and oral contrast, impression:
High-grade small bowel obstruction with associated mesenteric edema and transition point likely within the left lower quadrant.
Small fat-containing ventral hernia, unchanged from prior.
06/01/2024, abdomen x-ray, impression:
Persistent small bowel obstruction.
06/03/2024, impression:
Persistent small bowel obstruction, slightly improved.
06/04/2024 abdomen x-ray, impression:
Resolving partial small bowel obstruction.
06/05/2024 abdomen x-ray, impression:
1. Improved small intestinal dilation compared to recent prior studies.
2. Oral contrast is seen to the level of the hepatic flexure, without significant change compared to yesterday's study.
Procedure findings : No procedures
Discharge Plan
-
Patient Disposition: Home (Routine Discharge)
Discharge Diagnosis/Procedures: Partial small bowel obstruction
Condition: Good
Diet: Low Residue
Activity: No restrictions
Driving Restrictions: As prior to admission
Bathing Restrictions: None
Activity Restrictions/Additional Instructions:
Please follow-up with your primary care provider within 1 week of discharge
Referrals:
Freddie Yanez MD [Active] - in four to six weeks
Krish Walters MD [Family Provider] - in less than 1 week
Prescriptions:
New
polyethylene glycol 3350 [Miralax] 17 gram/dose powder
4 g PO DAILY Qty: 119 0RF
Continued
albuterol sulfate 90 mcg/actuation Hfa Aerosol Inhaler
2 puff INHALATION R Q4HPRN PRN (Reason: sob)
cholecalciferol (vitamin D3) 50 mcg (2,000 unit) Tablet
50 mcg PO DAILY
methylphenidate HCl 27 mg Tablet Extended Release 24hr
27 mg PO DAILY
Patient Comments:
06/01/2024: last filled 06/01/24, 30 tabs for 30 days from [id number]
ibuprofen 200 mg Tablet
600 mg PO HS
docusate sodium [Colace] 100 mg Capsule
100 mg PO .3-4X WEEKLY
fluticasone propionate 50 mcg/actuation spray,suspension
1 spray INTRANASAL DAILY
Vitamin B-3
1 tab PO DAILY
Discharge Orders:
Discharge Patient (As Directed); Ordered 06/07/24
Ordered By: Masood Garcia
Discharge Date and Time
Discharge Date/Time: 06/07/24 12:37
Print Language: ZAMBIAN

Documented by User: Devendra Foster MD 06/08/24 00:50
Discharge Summary
Discharge Data
Date of Admission: 06/01/24
Date of Discharge: 06/08/24
Discharge Plan
-
Patient Disposition: Home (Routine Discharge)
Discharge Diagnosis/Procedures: Partial small bowel obstruction
Condition: Good
Diet: Low Residue
Activity: No restrictions
Driving Restrictions: As prior to admission
Bathing Restrictions: None
Activity Restrictions/Additional Instructions:
Please follow-up with your primary care provider within 1 week of discharge
Referrals:
Freddie Yanez MD [Active] - in four to six weeks
Krish Walters MD [Family Provider] - in less than 1 week
Prescriptions:
New
polyethylene glycol 3350 [Miralax] 17 gram/dose powder
4 g PO DAILY Qty: 119 0RF
Continued
albuterol sulfate 90 mcg/actuation Hfa Aerosol Inhaler
2 puff INHALATION R Q4HPRN PRN (Reason: sob)
cholecalciferol (vitamin D3) 50 mcg (2,000 unit) Tablet
50 mcg PO DAILY
methylphenidate HCl 27 mg Tablet Extended Release 24hr
27 mg PO DAILY
Patient Comments:
06/01/2024: last filled 06/01/24, 30 tabs for 30 days from [id number]
ibuprofen 200 mg Tablet
600 mg PO HS
docusate sodium [Colace] 100 mg Capsule
100 mg PO .3-4X WEEKLY
fluticasone propionate 50 mcg/actuation spray,suspension
1 spray INTRANASAL DAILY
Vitamin B-3
1 tab PO DAILY
Discharge Orders:
Discharge Patient (As Directed); Ordered 06/07/24
Ordered By: Masood Garcia
Discharge Date and Time
Discharge Date/Time: 06/07/24 12:37
Print Language: ZAMBIAN
== END 2024-06-07 12:37 | disposition home or self-care (01) | DRG 390 ==
LOC: 3 WEST ACU 22:56
PROVIDERS: Clinical Nurse Specialist Family Health; Internal Medicine; ADMITTING PHYSICIAN Hospitalist; ATTENDING PHYSICIAN Family Medicine; EMERGENCY PHYSICIAN Emergency Medicine; FAMILY PHYSICIAN Family Medicine; OTHER PHYSICIAN Surgery
DX: K56.51 Intestinal adhesions [bands], with partial obstruction (principal); Z87.891 Personal history of nicotine dependence; J45.998 Other asthma; F90.9 Attention-deficit hyperactivity disorder, unspecified type; K66.8 Other specified disorders of peritoneum
CPT/HCPCS: 74018; 74019; 74177; 80048; 80053; 83605; 83690; 85025; 86803; 96361; 96374; 96375; 96376; 99285; Q9967

== ENCOUNTER 2025-05-09 22:18 | Inpatient (IN) | payer OTHER, SELFPAY ==
[2025-05-09] VITALS (7 sets, daily range): BP systolic 131–180; BP diastolic 80–91; BMI 23.0; BMI 23.9
[2025-05-09 16:14] LABS: Hematocrit 44.5 % (39.0-52.0); Hemoglobin 14.9 g/dL (13.0-18.0); Mean Corp Hgb Conc. 33.5 g/dL (33.0-37.0); Mean Corpuscular Volume 91.2 fL (80.0-94.0); Nucleated Red Blood Cells % 0 % (-); Platelet Count 187 10^3/uL (130-400); Red Cell Dist. Width 12.4 % (11.5-14.5)
[2025-05-09 16:43] LABS: ALT (SGPT) 24 U/L (0-50); AST (SGOT) 33 U/L (17-59); Albumin 4.7 g/dl (3.5-5.0); Alkaline Phosphatase 71 U/L (38-126); Blood Urea Nitrogen 34 mg/dl (9-20); Calcium 9.6 mg/dl (8.4-10.2); Carbon Dioxide 27 mmol/L (22-30); Chloride 104 mmol/L (98-107); Glucose 129 mg/dl (70-99); Potassium 4.4 mmol/L (3.5-5.1); Sodium 138 mmol/L (135-145); Total Protein 7.1 g/dl (6.3-8.2); eGFR 59.84
--- NOTE | 2025-05-09 18:40 | ED.GENMED ---
History of Present Illness
<Bradley Bonner PA-C - Last Filed: 05/11/25 08:58>
General
Chief Complaint: Abdominal Pain
Time Seen by Provider: 05/09/25 18:08
History of Present Illness
History of Present Illness:
69-year-old male with history of colon cancer status post sigmoidectomy, prior history of sigmoid VitaMist and small bowel obstruction presents for evaluation of generalized central abdominal pain in the past several hours. He states it feels
similar to 1 year ago when he was diagnosed with a small bowel obstruction. He has not had any gas/flatus since pain began. No vomiting at this time. Pain is ranked as severe. No fevers or chills.
Past History
<Bradley Bonner PA-C - Last Filed: 05/11/25 08:58>
Past History
ED Past Medical History: Asthma, Cancer (Colon CA, Skin Cancer), Psychiatric (Depression, ) and Other (urinary retention, ADHD, ADD)
ED Past Surgical History: Bowel resection (for colon CA), Urological (TURP) and Other (Hernia repair, Partial colectomy for Colon CA, Right vein stripping, Partial colectomy for Volvulus)
Social History
Tobacco: Former smoker
Alcohol: None
Personal:
Living: alone
Employment: Employed
Family History
Family History: Other
Review of Systems
<Bradley Bonner PA-C - Last Filed: 05/11/25 08:58>
Review of Systems
Allergies reviewed?: Yes
All Other Systems: ROS reviewed and negative except as documented in HPI and ROS
Phy Exam
<Bradley Bonner PA-C - Last Filed: 05/11/25 08:58>
Physical Exam
Physical Exam:
GEN: Well appearing, NAD, WDWN
Eyes: PERRLA, EOMs intact, no scleral icterus
HENT: NCAT, oral mucosa moist
Lungs: CTAB, no wheezes, rales, rhonchi, normal chest wall excursion
Cardiac: RRR, no M/R/G, no peripheral edema. Radial pulses 2+ bilat
Abdomen: Soft, general tenderness to all 4 quadrants, no distention or rigidity
Neuro: AO x 3
MSK: No gross deformity or ecchymosis. No edema. No digital clubbing
Skin: No rashes, petechiae. Normal color, no pallor or jaundice.
Psych: Calm, cooperative, proper hygiene
Course
<Bradlye Bonner PA-C - Last Filed: 05/11/25 08:58>
Orders/Labs/Results
Orders:
Orders
05/09/25 Dinner
NPO
Allow oral meds: Yes
Allow clear liquids: Sips of Clears
05/09/25 15:56
Obstruct Series W/PA Chest [CR Obstruct Series W/pa Chest] Urgent
Comment: hx of SBO
Reason For Exam: abd pain
05/09/25 16:07
Complete Blood Count/With Diff Urgent
Comprehensive Metabolic Panel Urgent
05/09/25 18:27
CT Abd/pel W Iv And Oral Contr Urgent
Comment:
Reason For Exam: abd pain, prior SBO
0.9% Sodium Chloride 1000 ml [Nss] 1,000 ml IV BOLUS
Iohexol [Omnipaque] See Protocol PO NOW STA
Ondansetron Injectable [Zofran] 4 mg IV NOW STA
05/09/25 18:39
HYDROmorphone [Dilaudid] 0.5 mg IV NOW STA
05/09/25 21:38
Piperacillin/Tazo 3.375 Gram [Zosyn] 3.375 gram in 50 ml IV NOW
05/09/25 22:00
Admit/Transfer Patient As Directed
Co-Sign Provider:
Level of Care: Inpatient admission
Assign to:: Medical/Surgical
Physician / Group: Jojo
Diagnosis: Abdominal pain
Reason for Hospitalization: SBO vs possible appendicitis
Expected length of stay greater than two midnights?: Yes
ELOS- Estimated Length of Stay in days: 2
I certify the patient meets the requirements for IP care: Yes
PRN Pain Medication Management As Directed
May give lesser potent ordered pain med per pt: Yes
preference::
Protocol:: Medication orders for pain may be administered in a
manner that supports deferring to patient preference
when the pt is:
- Requesting an ordered lesser potent pain medication.
Least to most potent pain medications are defined
as: acetaminophen < NSAID < tramadol < opioids
(morphine, oxycodone, hydromorphone).
- Requesting a lesser dose of the same medication IF
ORDERED.
- Requesting a less intrusive route of administration
if both routes are prescribed by the provider (PO <
IV).
05/09/25 22:01
Code Status As Directed
Resuscitation Status: Full Code
05/09/25 23:14
Acetaminophen [Tylenol] 650 mg PO Q4HPRN PRN
Bisacodyl [Dulcolax] 10 mg RECTAL [id number] PRN
Docusate W/Senna [Senokot-S] 1 tablet PO BIDPRN PRN
HYDROmorphone [Dilaudid] 0.5 mg IV Q4HPRN PRN
Ketorolac [Toradol] 10 mg IV Q6HPRN PRN
Lactated Ringers [Lr] 1,000 ml IV 100 mls/hr
Ondansetron Injectable [Zofran] 4 mg IV Q6HPRN PRN
Polyethylene Glycol Powder [Miralax] 17 grams PO DAILYPRN PRN
05/09/25 23:14
Consult Notification Routine
Specialty to Notify: Gastroenterology
Date consulting provider notified: 05/10/25
Time consulting provider notified: 07:38
Notified:: Provider
GASTROINTESTINAL CONSULT Routine
Consulting Provider: Amee Tomas
Was physician already notified: No
Reason for consult: SBO, ?appendicitis, h/o volvulos w/ cecal distension to 7.7 cm,
SURGICAL CONSULT Routine
Consulting Provider: Kali Bennett
Was physician already notified: Yes
Activity As Directed
Activity Level: With Assistance
Intake/ Output As Directed
Frequency: Per unit guidelines
Vital Signs As Directed
Frequency: Per unit guidelines
DX Deep Vein Thrombosis Video Routine
05/10/25 04:00
Piperacillin/Tazo 3.375 Gram [Zosyn] 3.375 gram in 50 ml IV Q6H
05/10/25 06:10
Basic Metabolic Panel IN AM
Complete Blood Count/No Diff IN AM
05/10/25 18:00
Enoxaparin Sodium [Lovenox] 40 mg SC QPM
Abnormal Lab Results
05/09/25
16:07
Lymphocytes % 19.0 L %
(20.5-51.1)
BUN 34 H mg/dl
(9-20)
Glucose 129 H mg/dl
(70-99)
05/09/25 16:07
05/09/25 16:07
Vital Signs
Initial and Last Documented VS:
Initial Vital Signs
Temp Pulse Resp BP
97.8 F 61 18 157/91
05/09/25 15:53 05/09/25 15:53 05/09/25 15:53 05/09/25 15:53
Last Documented Vital Signs
Temp Pulse Resp BP Pulse Ox
98.5 F 59 16 112/74 92
05/11/25 07:25 05/11/25 07:25 05/11/25 07:25 05/11/25 07:25 05/11/25 08:55
<Sai Lovelace PA-C - Last Filed: 05/09/25 21:43>
Orders/Labs/Results
Orders:
Orders
05/09/25 Dinner
NPO
Allow oral meds: Yes
Allow clear liquids: Sips of Clears
05/09/25 15:56
Obstruct Series W/PA Chest [CR Obstruct Series W/pa Chest] Urgent
Comment: hx of SBO
Reason For Exam: abd pain
05/09/25 16:07
Complete Blood Count/With Diff Urgent
Comprehensive Metabolic Panel Urgent
05/09/25 18:27
CT Abd/pel W Iv And Oral Contr Urgent
Comment:
Reason For Exam: abd pain, prior SBO
0.9% Sodium Chloride 1000 ml [Nss] 1,000 ml IV BOLUS
Iohexol [Omnipaque] See Protocol PO NOW STA
Ondansetron Injectable [Zofran] 4 mg IV NOW STA
05/09/25 18:39
HYDROmorphone [Dilaudid] 0.5 mg IV NOW STA
05/09/25 21:38
Piperacillin/Tazo 3.375 Gram [Zosyn] 3.375 gram in 50 ml IV NOW
05/09/25 22:00
Admit/Transfer Patient As Directed
Co-Sign Provider:
Level of Care: Inpatient admission
Assign to:: Medical/Surgical
Physician / Group: Jojo
Diagnosis: Abdominal pain
Reason for Hospitalization: SBO vs possible appendicitis
Expected length of stay greater than two midnights?: Yes
ELOS- Estimated Length of Stay in days: 2
I certify the patient meets the requirements for IP care: Yes
PRN Pain Medication Management As Directed
May give lesser potent ordered pain med per pt: Yes
preference::
Protocol:: Medication orders for pain may be administered in a
manner that supports deferring to patient preference
when the pt is:
- Requesting an ordered lesser potent pain medication.
Least to most potent pain medications are defined
as: acetaminophen < NSAID < tramadol < opioids
(morphine, oxycodone, hydromorphone).
- Requesting a lesser dose of the same medication IF
ORDERED.
- Requesting a less intrusive route of administration
if both routes are prescribed by the provider (PO <
IV).
05/09/25 22:01
Code Status As Directed
Resuscitation Status: Full Code
05/09/25 23:14
Acetaminophen [Tylenol] 650 mg PO Q4HPRN PRN
Bisacodyl [Dulcolax] 10 mg RECTAL [id number] PRN
Docusate W/Senna [Senokot-S] 1 tablet PO BIDPRN PRN
HYDROmorphone [Dilaudid] 0.5 mg IV Q4HPRN PRN
Ketorolac [Toradol] 10 mg IV Q6HPRN PRN
Lactated Ringers [Lr] 1,000 ml IV 100 mls/hr
Ondansetron Injectable [Zofran] 4 mg IV Q6HPRN PRN
Polyethylene Glycol Powder [Miralax] 17 grams PO DAILYPRN PRN
05/09/25 23:14
Consult Notification Routine
Specialty to Notify: Gastroenterology
Date consulting provider notified: 05/10/25
Time consulting provider notified: 07:38
Notified:: Provider
GASTROINTESTINAL CONSULT Routine
Consulting Provider: Amee Tomas
Was physician already notified: No
Reason for consult: SBO, ?appendicitis, h/o volvulos w/ cecal distension to 7.7 cm,
SURGICAL CONSULT Routine
Consulting Provider: Kali Bennett
Was physician already notified: Yes
Activity As Directed
Activity Level: With Assistance
Intake/ Output As Directed
Frequency: Per unit guidelines
Vital Signs As Directed
Frequency: Per unit guidelines
DX Deep Vein Thrombosis Video Routine
05/10/25 04:00
Piperacillin/Tazo 3.375 Gram [Zosyn] 3.375 gram in 50 ml IV Q6H
05/10/25 06:10
Basic Metabolic Panel IN AM
Complete Blood Count/No Diff IN AM
05/10/25 18:00
Enoxaparin Sodium [Lovenox] 40 mg SC QPM
Abnormal Lab Results
05/09/25
16:07
Lymphocytes % 19.0 L %
(20.5-51.1)
BUN 34 H mg/dl
(9-20)
Glucose 129 H mg/dl
(70-99)
05/09/25 16:07
05/09/25 16:07
Vital Signs
Initial and Last Documented VS:
Initial Vital Signs
Temp Pulse Resp BP
97.8 F 61 18 157/91
05/09/25 15:53 05/09/25 15:53 05/09/25 15:53 05/09/25 15:53
Last Documented Vital Signs
Temp Pulse Resp BP Pulse Ox
98.5 F 59 16 112/74 92
05/11/25 07:25 05/11/25 07:25 05/11/25 07:25 05/11/25 07:25 05/11/25 08:55
<Bradley Bonner PA-C - Last Filed: 05/11/25 08:58>
MDM/Problems Addressed
MDM/Problems Addressed:
Based on patient's history is suspicion for developing SBO, will send for imaging, will have the patient drink oral contrast as his exam is not overly convincing thus we will obtain highest clarity images with p.o. and IV contrast. Will sign out to
Eduar Lovelace PA-C pending imaging
<Bradley Bonner PA-C - Last Filed: 05/11/25 08:58>
*Pulse Oximetry
SaO2: 99
Oxygen Mode of Delivery: Room air
<Sai Lovelace PA-C - Last Filed: 05/09/25 21:43>
*Pulse Oximetry
Patient hypoxic: no
*Critical Care Note
Total Time (30-74mins, 75-104mins- exclusive of procedures): Not Applicable
<Sai Lovelace PA-C - Last Filed: 05/09/25 21:43>
Update Note
Update Note:
Assumed care of patient pending abdominal CT. Abdominal CT demonstrates a large amount of stool in the cecum to suggest constipation. There is also multiple dilated loops of small bowel and others Dr. Fletcher suggest the possibility of a small
bowel obstruction however a definitive transition point was not visualized. The appendix is also dilated slightly at 7.7 mm and there is some stranding at the tip of the appendix to suggest possible acute appendicitis. White count is normal here
no fever here. He is slightly tender to the right lower abdomen on exam. Zosyn was ordered. Will admit to hospital with surgical consultation
ED Attending Note
<Bradley Bonner PA-C - Last Filed: 05/11/25 08:58>
-
Portions of this chart may have been created with voice recognition software.� Occasional wrong word or��sound alike� substitutions may have occurred due to the inherent limitations of voice recognition software.
Discharge Plan
Departure
Patient Disposition: Admit
Date of Disposition: 05/09/25
Time of Disposition: 21:42
Presentation/result/management discussed w/ accepting MD/DO: Hospitalist
Discharge Problem:
Abdominal pain
Interventions
Interventions:
*Risk Screen - Suicide Last Done: 05/09/25 15:53
*General Assessment Last Done: 05/09/25 15:53
*Neglect/Abuse Screening Last Done: 05/09/25 18:14
*ED- Fall Risk Assessment Last Done: 05/09/25 18:14
*ED COVID-19 Vaccine History Last Done: 05/09/25 18:14
*ED Influenza Vaccine History Last Done: 05/09/25 18:14
*Nursing Disposition Last Done: 05/09/25 23:10
BW-Lwqpiw-Tbproujnav Assessment Last Done: 05/09/25 18:14
Discharge Date and Time
Discharge Date/Time: 05/09/25 23:11
[2025-05-09] MEDS: NSS 1000 IV (18:42)
[2025-05-09] MEDS: ZOFRAN 4 MG IV (18:42)
[2025-05-09] MEDS: DILAUDID 0.5 MG IV ×2 (18:42→23:47)
[2025-05-09] MEDS: OMNIPAQUE 50 ML PO (18:42)
--- NOTE | 2025-05-09 21:55 | HPS.HSE ---
Family Physician
-
Family Physician: Krish Walters
Chief Complaint
-
Abdominal pain
History of Present Illness
This is a 69-year-old with past medical history significant for colon cancer status post resection, partial colectomy for volvulus, prior SBO, BPH s/p TURP, history of hernia repair, urinary retention and ADHD, presents to the emergency department
with several hours of central abdominal pain. He reports that it feels similar to when he was diagnosed with small bowel obstruction 1 year ago. He states he has not been passing gas. No vomiting. He does mild nausea. Denies any recent
diarrhea. Denies any recent medication changes. He denies having any fevers or chills. He denies any flank pain. He denies any urinary symptoms.
In the emergency department he was afebrile, blood pressure was 140/87 with a pulse rate of 55 and he was satting 98% on room air.
White count was 7.3, hemoglobin and platelets were normal. Electrolytes were normal. BUN 34 creatinine 1.3 with a glucose of 129.
CT of the abdomen and pelvis showing:Large colonic fecal burden especially in the cecum, which is distended to approximately 7.5 cm.
Distended loops of small bowel measuring up to 3 cm, with air-fluid levels. There are other small bowel loops which appear relatively decompressed and/or normal in caliber. The possibility of small bowel obstruction may be considered in the proper
clinical setting, though difficult to identify transition point. Consider follow-up small bowel follow-through study if indicated.
Mildly distended appendix measuring up to 7.7 mm the wall thickening appreciated, though there is a small amount of fluid near the appendix tip, as well as a small amount of fluid in the pelvis. Possibility of mild or early appendicitis cannot be
excluded in the proper clinical setting.
Medical History
Past Medical History
Past Medical History: Reports Other ( colon cancer status post sigmoidectomy 17 years ago, sigmoid volvulus status post reduction of volvulus in December hernia repair, skin cancer, BPH status post TURP in November, asthma, depression, ADHD, )
Past Surgical History: Reports Other ( Bowel resection (for colon CA), Urological (TURP) and Other (Hernia repair, Partial colectomy for Colon CA, Right vein stripping, Partial colectomy for Volvulus))
Social History
Tobacco: Non-smoker
Alcohol: None
Drug: None
Family History
Family History: Not pertinent
Allergies / Home Medications
Allergies reflects when Allergies were last updated in [employer].
Home Medications with original date entered in [facility]
Allergy/Medication List:
Allergies
Allergy/AdvReac Type Severity Reaction Status Date / Time
No Known Allergies Allergy Verified 06/01/24 17:27
Home Medications
albuterol sulfate 90 mcg/actuation aerosol inhaler 2 puff inhalation R Q4HPRN PRN sob 12/22/23
cholecalciferol (vitamin D3) 50 mcg (2,000 unit) tablet 50 mcg PO DAILY Supplement 12/22/23
methylphenidate HCl 27 mg tablet,extended release 24 hr 27 mg PO DAILY ADD 12/22/23
Vitamin B-3 1 tab PO DAILY 06/01/24
docusate sodium 100 mg capsule (Colace) 100 mg PO .3-4X WEEKLY 06/01/24
fluticasone propionate 50 mcg/actuation nasal spray,suspension 1 spray intranasal DAILY 06/01/24
ibuprofen 200 mg tablet 600 mg PO HS 06/01/24
Review of Systems
-
Constitutional: Reports No Symptoms
EENT: Reports No Symptoms
Respiratory: Reports No Symptoms
Cardiac: Reports No Symptoms
Abdomen/GI: Reports Abdominal Pain and Constipated
: Reports No Symptoms
Musculoskeletal: Reports No Symptoms
Skin: Reports No Symptoms
Neurological: Reports No Symptoms
Endocrine: Reports No Symptoms
Hematologic/Lymphatic: Reports No Symptoms
Psych: Reports No Symptoms
Physical Exam
Vital Signs
Vital Signs
Temp Pulse Resp BP Pulse Ox
98.5 F 55 18 141/87 98
05/09/25 18:14 05/09/25 20:00 05/09/25 20:00 05/09/25 20:00 05/09/25 20:00
Physical Exam
General: Well Developed, Well Nourished and No Apparent Distress
HEENT: NormoCephalic, Moist mucous membranes and Atraumatic
Respiratory: Clear
Cardiac: S1/S2 and Regular Rhythm; No Murmur or Rub
GI: Soft, Non Distended, Normal Bowel Sounds and Tender (diffusely ); No Organomegaly
Rectal: Deferred by Provider
Genito-urinary: Deferred by me
Musculoskeletal: No Clubbing, No Cyanosis and No Edema
Skin: No Rash
Neuro: AO x 3 and Nonfocal/grossly intact
Hematologic/Lymphatic: No Lymphadenopathy
Laboratory Results
-
05/09/25 16:07
05/09/25 16:07
Laboratory Results
Total Bilirubin 0.5 mg/dl (0.2-1.3) 05/09/25 16:07
AST 33 U/L (17-59) 05/09/25 16:07
ALT 24 U/L (0-50) 05/09/25 16:07
Alkaline Phosphatase 71 U/L (38-126) 05/09/25 16:07
Data Reviewed
-
CT Scan: Report Reviewed by me
Lab Data: Labs Reviewed by me
Old Records: Reviewed
Impression/Plan
-
IMPRESSION:
69-year-old with past medical history of colon cancer with partial resection, sigmoid volvulus also with partial resection complicated by ileus, prior history of SBO in May conservatively managed, presents to the emergency department with acute
abdominal pain, no nauseanor vomiting. He reports not passing gas and has not had a bowel movement today. Is vital signs are stable. His labs were unremarkable. He CT scan is concerning for small bowel obstruction with dilation of small bowel
loops and he air-fluid levels, also there is large colonic fecal burden especially in the cecum which is distended to about 7.5 cm. Furthermore there is distention of the appendix measuring up to 7. 7 mm. Appendicitis cannot be excluded.
PLAN:
Abdominal pain -SBO, possible appendicitis, cecal distention with history of volvulus
-Admit to MedSurg
-N.p.o.
-Pain control for now
-Antiemetics
-No vomiting, if pain can be controlled will hold off on NG tube placement at this time
-IV Zosyn for now
-Serial examination
-Surgical consult
-GI consultation
DVT prophylaxis�Lovenox subcu
CODE STATUS�full code
[2025-05-09] MEDS: ZOSYN 50 IV (22:23)
[2025-05-09] MEDS: LR 1000 IV (23:48)
--- NOTE | 2025-05-09 23:55 | PTCARENOTE ---
New admit from ER to 2S via stretcher and able to walk to room bed with steady gait and no assistive devices. Pt. A&Ox3, even and nonlabored breathing on RA, VSS, and reporting 8/10 cramping abdominal pain - see MAR for director medical economics. Pt. oriented to
room and unit policies, bed locked and in lowest position, side rails in place, call light within reach, plan of care discussed, and questions answered at time of assessment.
[2025-05-10] MEDS: MELATONIN 3 MG PO ×2 (00:22→21:16)
[2025-05-10] MEDS: ZOSYN 50 IV ×4 (03:39→21:15)
[2025-05-10] MEDS: DILAUDID 0.5 MG IV (05:40)
[2025-05-10 06:53] LABS: Hematocrit 38.1 % (39.0-52.0); Hemoglobin 13.0 g/dL (13.0-18.0); Mean Corp Hgb Conc. 34.1 g/dL (33.0-37.0); Mean Corpuscular Volume 92.7 fL (80.0-94.0); Platelet Count 156 10^3/uL (130-400); Red Cell Dist. Width 12.2 % (11.5-14.5)
[2025-05-10 07:07] LABS: Blood Urea Nitrogen 22 mg/dl (9-20); Calcium 8.8 mg/dl (8.4-10.2); Carbon Dioxide 28 mmol/L (22-30); Chloride 107 mmol/L (98-107); Estimated Creatinine Clearance 58 ml/min; Glucose 86 mg/dl (70-99); Potassium 4.1 mmol/L (3.5-5.1); Sodium 139 mmol/L (135-145); eGFR 59.84
[2025-05-10 07:25] VITALS: BP 127/73
--- NOTE | 2025-05-10 08:14 | CON.GI ---
Consultation
-
Date/Time Consultation Requested: 05/09/2025
Date/Time Consultation Performed: 05/10/2025
Requesting Provider: Dr. Uribe
Performing Provider: Trudy Bañuelos
Reason for Consultation: Abdominal pain
Medical History
Chief Complaint / HPI
Chief Complaint: Abdominal pain
History of Present Illness:
Mr. Lowe is a 69-year-old with past medical history significant for colon cancer status post resection, partial colectomy for volvulus, prior SBO (05/2024), BPH s/p TURP, history of hernia repair, urinary retention and ADHD, presents to the
emergency department with several hours of central abdominal pain 03/19. He reports that it feels similar to when he was diagnosed with small bowel obstruction 1 year ago. He states he has not been passing gas. No vomiting. He does mild nausea.
Denies any recent diarrhea. Denies any recent medication changes. He continues to take Colace and MiraLAX daily, with about 2 bowel movements per day, last bowel movement two days ago. Always feels like he still has to go after. Has not noticed
any blood in his stools or changes in the caliber. He denies having any fevers or chills. He denies any flank pain. He denies any urinary symptoms. In the emergency department he was afebrile with stable vital signs. CT of the abdomen and pelvis
showing large colonic fecal burden especially in the cecum, which is distended, distended loops of small bowel measuring up to 3 cm, with air-fluid levels,mildly distended appendix measuring up to 7.7 mm the wall thickening appreciated, appendicitis
cannot be excluded. This morning Mr. Paige is doing better, he reports passing gas, improving abdominal pain with pain medications currently 11/17. He also reports 1 to 2 years of difficulty swallowing feeling like something stuck in his esophagus
after after lunch about 2-3 times a week, with difficulties with both liquids and solids. Symptoms usually self resolve, and he takes as needed Pepcid.
Past Medical History
Past Medical History: Asthma, Cancer (Skin cancer, colon cancer), GERD, Psychiatric (Depression, ADHD) and Other (BPH, SBO, umbilical hernia)
Past Surgical History: Bowel Resection (Sigmoidectomy, partial colectomy x 2 (volvulus, colon CA)), Urological (TURP) and Other (Hernia repair, Right vein stripping,)
Social History
Tobacco: Non-Smoker
Alcohol: None
Drug: Marijuana
Family History
Family History: Reviewed & Not Pertinent
Allergies / Home Medications
Allergy/AdvReac Type Severity Reaction Status Date / Time
No Known Allergies Allergy Verified 05/09/25 15:54
�Medication �Instructions �Recorded
methylphenidate HCl 27 mg 27 mg PO DAILY ADD 12/22/23
tablet,extended release 24 hr
docusate sodium 100 mg capsule 100 mg PO DAILY Gastrointestinal 05/10/25
(Colace) Issue
melatonin 3 mg tablet 3 mg PO HS PRN sleep 05/10/25
polyethylene glycol 3350 17 gram 17 g PO DAILY Gastrointestinal 05/10/25
oral powder packet (Miralax) Issue
Review of Systems
-
History Source: Patient
Constitutional: Reports No Symptoms; Denies Fever, Weight Loss or Fatigue
EENT: Reports No Symptoms; Denies Sore Throat or Runny Nose
Respiratory: Reports No Symptoms; Denies Cough or Trouble Breathing
Cardiac: Reports No Symptoms; Denies Chest Pain or Palpitations
Abdomen/GI: Reports Abdominal Pain, Nausea and Constipated; Denies Vomiting, Diarrhea or Bloody Stools
: Reports No Symptoms; Denies Dysuria or Frequency
Vital Signs
Temp Pulse Resp BP Pulse Ox
97.8 F 62 14 131/89 96
05/09/25 23:15 05/09/25 23:15 05/09/25 23:15 05/09/25 23:15 05/09/25 23:15
Physical Exam
Exam
General: Well Developed, Well Nourished and No Apparent Distress
HEENT: Normocephalic and Anicteric
Respiratory: Clear
Cardiac: S1/S2 and Regular Rhythm
GI: Soft, Normal Bowel Sounds and Tender (Diffusely tender, most tender in the epigastric region)
Skin: Warm and Dry
Neuro: Awake, Alert and Oriented
Results
WBC 6.6 10^3/uL (4.8-10.8) 05/10/25 06:10
Hgb 13.0 g/dL (13.0-18.0) 05/10/25 06:10
Hct 38.1 % (39.0-52.0) L 05/10/25 06:10
MCV 92.7 fL (80.0-94.0) 05/10/25 06:10
Plt Count 156 10^3/uL (130-400) 05/10/25 06:10
Absolute Neuts (auto) 5.1 10^3/uL (1.4-6.5) 05/09/25 16:07
Sodium 139 mmol/L (135-145) 05/10/25 06:10
Potassium 4.1 mmol/L (3.5-5.1) 05/10/25 06:10
Chloride 107 mmol/L (98-107) 05/10/25 06:10
Carbon Dioxide 28 mmol/L (22-30) 05/10/25 06:10
BUN 22 mg/dl (9-20) H 05/10/25 06:10
Creatinine 1.3 mg/dL (0.7-1.3) 05/10/25 06:10
Calcium 8.8 mg/dl (8.4-10.2) 05/10/25 06:10
Total Bilirubin 0.5 mg/dl (0.2-1.3) 05/09/25 16:07
AST 33 U/L (17-59) 05/09/25 16:07
ALT 24 U/L (0-50) 05/09/25 16:07
Alkaline Phosphatase 71 U/L (38-126) 05/09/25 16:07
Diagnostic Image Results:
05/09/2025 CT abdomen pelvis:
Constipation. Large colonic fecal burden especially in the cecum, which is distended to approximately 7.5 cm.
Distended loops of small bowel measuring up to 3 cm, with air-fluid levels. There are other small bowel loops which appear relatively decompressed and/or normal in caliber. The possibility of small bowel obstruction may be considered in the proper
clinical setting, though difficult to identify transition point. Consider follow-up small bowel follow-through study if indicated.
Mildly distended appendix measuring up to 7.7 mm the wall thickening appreciated, though there is a small amount of fluid near the appendix tip, as well as a small amount of fluid in the pelvis. Possibility of mild or early appendicitis cannot be
excluded in the proper clinical setting.
Prior GI Procedures:
12/22/2023 sigmoidoscopy:
Findings:
A volvulus with a tight twist was seen at 20cm from the anal very.
Proximal to this was dilated colon with necrotic appearing mucosa.
Decompression of the volvulus was attempted and was successful, with
complete decompression achieved. Following the maneuver, a tube was
placed to maintain the decompression.
Impression: - Volvulus. Successful complete decompression achieved.
- No specimens collected.
EGD: None
Colonoscopy:
11/[address] Garzon noted colon normal.
[address] Santoro noted 3 diminutive polyps TC an cecum, patent end to end colon colonic anastamosis with healthy mucosa, IH, bx SSA.
Assessment / Plan
-
69-year-old with past medical history of colon cancer with partial resection, sigmoid volvulus also with partial resection complicated by ileus, prior history of SBO in May 2024 conservatively managed, presents to the emergency department with
acute abdominal pain. CT scan is concerning for small bowel obstruction with dilation of small bowel loops and air-fluid levels, also there is large colonic fecal burden. There is distention of the appendix, appendicitis cannot be excluded.
-abdominal pain for SBO versus constipation versus appendicitis
-hx colon CA with prior sigmoid resection, partial colectomy
-hx TURP
-dysphagia
other med problems:
-umbilical hernia repair scheduled for June
PLAN:
NPO
appreciate surgical eval
OP follow up for complaints of dysphagia
pain control per hospitalist
This is a preliminary note, please refer to attending note for final recommendations.
-
-
Thank you for consultation and allowing me to participate in the patient's care. Please call the turbinated bone grinder GI physician during the after hours with any questions or concerns.
[2025-05-10] MEDS: LR 1000 IV (09:51)
--- NOTE | 2025-05-10 11:15 | CON.GS ---
Documented by User: Gayla Guadarrama MD, Resident 05/10/25 11:43
Medical History
-
Chief Complaint: Abdominal pain
History of Present Illness:
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
status post Open primary umbilical herniorrhaphy (Sep 2020). Basal skin cancer, melanoma status post Mohs surgery, varicose vein closure, urinary retention, and ADHD, presenting to the emergency department with several hours of supraumbilical
abdominal pain.
One day prior to admission, he developed a sudden onset upper abdominal pain after eating a large breakfast consisting of eggs and sausage, which was unusual for him. The pain was described as crampy, persistent, and rated 8/10, associated with
anorexia and inability to pass flatus. His last bowel movement occurred earlier that day, just prior to symptom onset, described as small, formed, and non-bloody. He notes missing his usual Miralax dose that morning.
He reports a similar episode in May 2024� when he was admitted for small bowel obstruction, which was managed conservatively. He denies nausea, vomiting, fever, diarrhea, or constipation. At present, pain is rated 6/10.
White count was 7.3---> 6.6
CT abd/pelvis shows: Large colonic fecal burden especially in the cecum; distended to approximately 7.5 cm. Mild distention of small bowel, with gas and fluid, resulting scattered air-fluid levels. Small bowel measuring up to 3 cm. Uncertain
transition point. appendix is mildly distended measuring up to 7.7 mm. There is no apparent wall thickening.
Mildly distended appendix measuring up to 7.7 mm the wall thickening appreciated, though there is a small amount of fluid near the appendix tip, as well as a small amount of fluid in the pelvis.
Past Medical History
Past Medical History: Other (Colon Cancer, Small Bowel Obstruction (May 2024), BPH, Umbilical Hernia, ADHD)
Past Surgical History: Bowel Resection (2007, Laparotomy with sigmoid resection, takedown of splenic flexure, and colorectal anastomosis (December 2023)), Hernia Repair (Open primary umbilical herniorrhaphy Sep 2020) and Other ( SHARRI PAYNE (November 2022))
Social History
Tobacco: Non-Smoker
Alcohol: None
Drug: None
Personal: Single
Living: With Family
Allergies / Home Medications
Allergy/AdvReac Type Severity Reaction Status Date / Time
No Known Allergies Allergy Verified 05/09/25 15:54
�Medication �Instructions �Recorded �Confirmed �Type
methylphenidate HCl 27 mg 27 mg PO DAILY ADD 12/22/23 05/09/25 History
tablet,extended release 24 hr
docusate sodium 100 mg capsule 100 mg PO DAILY Gastrointestinal 05/10/25 05/10/25 History
(Colace) Issue
melatonin 3 mg tablet 3 mg PO HS PRN sleep 05/10/25 05/10/25 History
polyethylene glycol 3350 17 gram 17 g PO DAILY Gastrointestinal 05/10/25 05/10/25 History
oral powder packet (Miralax) Issue
Review of Systems
-
History Source: Patient
A 10 point review of systems was completed, and was negative except as per HPI.
Physical Exam
Vital Signs
Temp Pulse Resp BP Pulse Ox
97.7 F 48 16 127/73 94
05/10/25 07:25 05/10/25 07:25 05/10/25 07:25 05/10/25 07:25 05/10/25 08:34
05/09/25 05/10/25 05/11/25
06:59 06:59 06:59
Actual Weight 77.706 kg
Body Mass Index (BMI) 23.9
Lab Results
05/10/25 06:10
05/10/25 06:10
WBC 6.6 10^3/uL (4.8-10.8) 05/10/25 06:10
Hgb 13.0 g/dL (13.0-18.0) 05/10/25 06:10
Hct 38.1 % (39.0-52.0) L 05/10/25 06:10
Plt Count 156 10^3/uL (130-400) 05/10/25 06:10
Abs Immat Gran (auto) 0.0 10^3/uL (0-0.05) 05/09/25 16:07
Neutrophils % 69.9 % (42.2-75.2) 05/09/25 16:07
Physical Exam
General: Well Developed, Well Nourished and No Apparent Distress
HEENT: Anicteric
Respiratory: Non Labored Respirations
Cardiac: S1/S2 and Regular Rhythm
GI: Soft, Non Distended, Normal Bowel Sounds, Tender (Upper quadrant, mainly on LUQ and supraumbilical area) and Other (Tympany on Left side, dullness on percussion on Right side)
Skin: Warm
Neuro: AO x 3
Psych: Calm
Data Reviewed
-
CT Scan: Image Personally Visualized and interpreted (by attending surgeon), Report Reviewed by me (and attending surgeon) and Discussed with Patient (by attending surgeon)
Assessment / Plan
-
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
status post Open primary umbilical herniorrhaphy (Sep 2020). Basal skin cancer, melanoma status post Mohs surgery, varicose vein closure, urinary retention, and ADHD, presenting to the emergency department with several hours of supraumbilical
abdominal pain presenting with 1 day duration of upper quadrant abdominal pain associated with anorexia and inability to pass flatus. He reports a similar episode in May 2024� when he was admitted for small bowel obstruction, which was managed
conservatively. He denies nausea, vomiting, fever, diarrhea, or constipation. At present, pain is rated 6/10.
WBC 7.3---> 6.6
CT abd/pelvis shows: Large colonic fecal burden especially in the cecum; distended to approximately 7.5 cm. Mild distention of small bowel, with gas and fluid, resulting scattered air-fluid levels. Small bowel measuring up to 3 cm. Uncertain
transition point. appendix is mildly distended measuring up to 7.7 mm. There is no apparent wall thickening.
Mildly distended appendix measuring up to 7.7 mm the wall thickening appreciated, though there is a small amount of fluid near the appendix tip, as well as a small amount of fluid in the pelvis.
#Recurrent Small Bowel Obstruction vs Acute Appendicitis
--history of multiple abdominal surgeries
--history of SBO , managed non-operatively in 2023
--improving pain
-NPO, bowel rest
-CR abdomen pending
-on IV antibiotics and IVF
-Pain management and antiemetics
-continue [employer] Miralax
-DVT prophylaxis
-Medical management per primary team
-plan for further surgical intervention pending imaging studies, in correlation with patient's improvement on bowel rest/non-operative interventions.

Documented by User: Freddie Yanez MD 05/10/25 12:01
Medical History
-
History of Present Illness:
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
umbilical hernia s/p open primary umbilical herniorrhaphy (Sep 2020). Mr. Lowe presents with several hours of supraumbilical abdominal pain.
One day prior to admission, he developed a sudden onset upper abdominal pain after eating a large breakfast consisting of eggs and sausage, which was unusual for him. The pain was described as crampy, persistent, and rated 8/10, associated with
anorexia and inability to pass flatus. His last bowel movement occurred earlier that day, just prior to symptom onset, described as small, formed, and non-bloody. He notes missing his usual Miralax dose that morning. No nausea or emesis. No fevers.
He reports a similar episode in May 2024� when he was admitted for small bowel obstruction, which was managed conservatively. He denies nausea, vomiting, fever, diarrhea, or constipation. At present, he is improved. Passing flatus. No BM.
White count was 7.3---> 6.6
CT abd/pelvis shows: Large colonic fecal burden especially in the cecum; distended to approximately 7.5 cm. Mild distention of small bowel, with gas and fluid, resulting scattered air-fluid levels. Small bowel measuring up to 3 cm. Uncertain
transition point. appendix is mildly distended measuring up to 7.7 mm. There is no apparent wall thickening.
Mildly distended appendix measuring up to 7.7 mm the wall thickening appreciated, though there is a small amount of fluid near the appendix tip, as well as a small amount of fluid in the pelvis.
Past Medical History
Past Medical History: Cancer (Colon Cancer) and Other (Small Bowel Obstruction (May 2024), BPH, ADHD)
Data Reviewed
-
Labs: Labs Reviewed by me
Old Records: Reviewed
Assessment / Plan
-
Patient is a 69 yo M p/w crampy abdominal pain likely secondary to constipation
Symptoms most likely secondary to constipation given his underlying history and CT scan imaging. No clear evidence of a component of SBO. Repeat abdominal x-ray demonstrates passage of contrast into the RIGHT colon. CT scan imaging does
demonstrate a mildly dilated appendix without significant periappendiceal inflammation. Clinically Mr. Lowe has no RLQ abdominal pain or discomfort. He also has a normal WBC. Possible delayed emptying of his appendix secondary to constipation
leading to this mild dilation. Recommend antibiotic treatment with 4 to 7 days of antibiotics. We discussed potential concomitant appendectomy at the time of his upcoming hernia repair to eliminate this as a possible issue in his future,
misdiagnosis, as well as the added advantage of scarring to help prevent any cecal volvulus.
No indication or plan for surgical invention at this time. Clears with ADAT to LRD. MiraLAX daily. Would treat with antibiotics for 4 to 7 days for any potential coverage of an appendicitis, though clinically no evidence. Outpatient follow-up
as previously scheduled to coordinate timing and logistics related to his upcoming hernia repair. All questions answered.
-- No indication or plan for surgical intervention at this time
-- Clears, ADAT to LRD
-- Miralax daily
-- Abx: MYNOR Harrell on 4 days Augmentin
-- Outpatient follow-up as previously scheduled
-- GI consult noted
-- Call with questions or concerns
--- NOTE | 2025-05-10 11:45 | CM ---
Initial assessment completed with patient whose daughter lives with him in a 3 story home plus attic and basement, B/B on 2nd with 1/2 bath on 1st, 6 steps to enter. [employer] patient was independent in ADL's and ambulation, drives. No DME. No in-home
services. No HC-POA. No VA benefits. No psychiatric hospitalizations. PCP is Dr. Krish Walters. Pharmacy is [facility] on [address] in [place]. Discharge POC: Anticipate home with no needs.
--- NOTE | 2025-05-10 14:36 | W.PN.HOSP.TC ---
Today's Communication/Plan
-
Advance diet to full liquids
Assessment / Plan
Assessment / Plan
IMPRESSION:
69-year-old with past medical history of colon cancer with partial resection, sigmoid volvulus also with partial resection complicated by ileus, prior history of SBO in May conservatively managed, presents to the emergency department with acute
abdominal pain, no nauseanor vomiting. He reports not passing gas and has not had a bowel movement today. Is vital signs are stable. His labs were unremarkable. He CT scan is concerning for small bowel obstruction with dilation of small bowel
loops and he air-fluid levels, also there is large colonic fecal burden especially in the cecum which is distended to about 7.5 cm. Furthermore there is distention of the appendix measuring up to 7. 7 mm. Appendicitis cannot be excluded.
PLAN:
Abdominal pain with radiological concern for bowel obstruction+_early appendicitis
-Resolved symptoms. Tolerating already clear liquids. Advance diet to full liquids.
- With quick resolution of symptoms and normal white count down to appendicitis. If surgery thinks no appendicitis will discontinue further antibiotics.
Constipation-continue with MiraLAX
DVT prophylaxis�Lovenox subcu
CODE STATUS�full code
Portions of this chart may have been created with voice recognition software. Occasional wrong word or 'sound alike' substitutions may have occurred due to the inherent limitations of voice recognition software.
Anticipated Discharge: Within 24 hours
Subjective/Interval History
-
Date of Service: May 10, 2025
Patient now with resolved abdominal pain. He states he is already tolerating clear liquids and feeling hungry and looking for his diet to be advanced. No nausea vomiting. No fever or chills. No shortness of breath.
Objective Data
-
Labs:
Laboratory Results
05/10/25
06:10
WBC 6.6
Hgb 13.0
Hct 38.1 L
Plt Count 156
Sodium 139
Potassium 4.1
Chloride 107
Carbon Dioxide 28
BUN 22 H
Creatinine 1.3
Glucose 86
Calcium 8.8
Vital Signs:
Vital Signs
Temp Pulse Resp BP Pulse Ox
97.7 F 48 16 127/73 94
05/10/25 07:25 05/10/25 07:25 05/10/25 07:25 05/10/25 07:25 05/10/25 08:34
I&O
05/09/25 05/10/25 05/11/25
06:59 06:59 06:59
Intake Total 810 / 810
Balance 810 / 810
Physical Exam
-
General: Comfortable
Respiratory: Non Labored Respirations; Negative Accessory Resp Muscle Use
Cardiac: Regular Rhythm and S1/S2; Negative Tachycardic
GI: Soft, Nontender, Nondistended and Normal Bowel Sounds
Neuro: AO x 3
Data Reviewed
-
Labs: Labs Reviewed by me
[2025-05-10 15:20] VITALS: BP 118/69
[2025-05-10] MEDS: TYLENOL 650 MG PO (16:36)
[2025-05-10] MEDS: LOVENOX 40 MG SC (17:19)
[2025-05-10] MEDS: MILK OF MAGNESIA 30 ML PO (18:19)
[2025-05-10] MEDS: MIRALAX 17 GRAMS PO (19:27)
[2025-05-10 23:15] VITALS: BP 123/64
[2025-05-11] MEDS: ZOSYN 50 IV ×2 (04:02→10:17)
[2025-05-11 07:25] VITALS: BP 112/74
--- NOTE | 2025-05-11 07:39 | W.PN.GI.CBS2 ---
Today's Communication / Plan
-
Advance diet to low residue diet
Milk of molasses enema today
MiraLAX twice daily added senna
Follow-up with Dr. Santoro in the office
Assessment / Plan
-
69-year-old with past medical history of colon cancer with partial resection, sigmoid volvulus also with partial resection complicated by ileus, prior history of SBO in May 2024 conservatively managed, presents to the emergency department with
acute abdominal pain. CT scan is concerning for small bowel obstruction with dilation of small bowel loops and air-fluid levels, also there is large colonic fecal burden. There is distention of the appendix, appendicitis cannot be excluded.
-abdominal pain for PSBO versus constipation versus appendicitis
-hx colon CA with prior sigmoid resection, partial colectomy
-hx TURP
-dysphagia
other med problems:
-umbilical hernia repair scheduled for June
PLAN:
Symptoms of abdominal pain and distention most likely related to severe constipation with ileus versus partial small bowel obstruction which seems to have improved.
He does need an aggressive bowel regimen after discharge from the hospital he will follow-up with Dr. Santoro in the office to discuss starting prescription laxatives
increased his MiraLAX to twice daily and added senna continue at home also
Will also give MOM enema today and if has BM Ok for DC
His last colonoscopy was in [address] Garzon and was normal
Currently has no localized pain so less likely from acute appendicitis will defer decision to continue antibiotics to surgery.
He has been seen by Dr. Yanez and he discussed appendectomy at the time of his hernia repair which is scheduled for June
GI will s/o and will be available as needed
Subjective
Subjective
Date of Service: May 11, 2025
Feels much better with less distention and passing flatus, no bowel movement yet, the pain has resolved also
Objective
Data Reviewed
Laboratory Data:
Laboratory Results
05/10/25 06:10
05/10/25 06:10
Laboratory Results
Total Bilirubin 0.5 mg/dl (0.2-1.3) 05/09/25 16:07
AST 33 U/L (17-59) 05/09/25 16:07
ALT 24 U/L (0-50) 05/09/25 16:07
Alkaline Phosphatase 71 U/L (38-126) 05/09/25 16:07
Vital Signs and I&O:
Vital Signs
Temp Pulse Resp BP Pulse Ox
98.2 F 48 18 123/64 93
05/10/25 23:15 05/10/25 23:15 05/10/25 23:15 05/10/25 23:15 05/10/25 23:15
I&O
05/10/25 05/11/25 05/12/25
06:59 06:59 06:59
Intake Total 1849
Balance 1849
Physical Exam
Physical Exam
Cardiology: Normal Sinus Rhythm
Pulmonary: Clear
GI: Soft, Non Distended, Non Tender and Normal Bowel Sounds
[2025-05-11] MEDS: MIRALAX 17 GRAMS PO (08:12)
--- NOTE | 2025-05-11 09:55 | W.PN.GS2 ---
Today's Communication / Plan
-
`
Assessment / Plan
-
Assessment: 69-year-old male presenting with abdominal pain and distention likely secondary to acute constipation which may have resulted in secondary appendiceal dilation as there are no strong clinical signs supportive of acute appendicitis
AFVSS
No right lower quadrant tenderness
Follow-up radiographic imaging has ruled out small bowel obstruction as well
Plan: bowel regiment per GI service
Given low clinical suspicion for acute appendicitis a full course of antibiotic treatment is likely not necessary and can follow expectantly for signs/symptoms of appendicitis going forward
Signing off. Please call if can be of further assistance with care.
Subjective Data
-
Date of Service: May 11, 2025
Patient seen and examined.
Reports resolution of presenting abdominal pain which was in the upper central abdomen.
No nausea, no vomiting
Specifically denies right lower quadrant or pelvic pains.
Passing flatus but no bowel movement yet
Objective Data
-
Intake and Output
05/10/25 05/11/25 05/12/25
06:59 06:59 06:59
Intake Total 1849 / 0
Balance 185 / 1849
Intake:
Oral fluids 1050 / 1050
IV fluids (Total) 700 / 700
IV piggybacks 100 / 100
Other:
Number of approximated MODERATE 2
amounts of urine
Vital Signs
Temp Pulse Resp BP Pulse Ox
98.5 F 59 16 112/74 92
05/11/25 07:25 05/11/25 07:25 05/11/25 07:25 05/11/25 07:25 05/11/25 08:55
Lab Results
05/10/25 06:10
05/10/25 06:10
Calcium 8.8 mg/dl (8.4-10.2) 05/10/25 06:10
Total Bilirubin 0.5 mg/dl (0.2-1.3) 05/09/25 16:07
AST 33 U/L (17-59) 05/09/25 16:07
ALT 24 U/L (0-50) 05/09/25 16:07
Alkaline Phosphatase 71 U/L (38-126) 05/09/25 16:07
Total Protein 7.1 g/dl (6.3-8.2) 05/09/25 16:07
Albumin 4.7 g/dl (3.5-5.0) 05/09/25 16:07
Physical Exam
-
NAD AAO x 3
ABD: soft, nondistended, no tenderness on palpation. No rebound rigidity or guarding.
Soft reducible incisional hernia.
[2025-05-11 11:40] VITALS: BP 128/74
--- NOTE | 2025-05-11 13:13 | CM ---
Patient has been medically cleared for discharge to home with no additional skilled services. Patient has arranged for transportation home. Admission IMM is within 48 hr time frame.
[2025-05-11] MEDS: FLUZONE HIGH-DOSE 2025-26 0.5 ML IM (13:29)
--- NOTE | 2025-05-11 14:45 | W.DCSUMMARY ---
Discharge Summary
Discharge Data
Date of Admission: 05/09/25
Date of Discharge: 05/11/25
-
Pending Results: No
Hospital Course
Primary diagnosis:
Constipation
Secondary diagnosis:
History of colon cancer s/p resection
History of sigmoid volvulus s/p surgical correction
Hospital course:
Patient with above surgical history as well as history of SBO in May of last year presented with abdominal pain, not passing gas and bowel movement. CT on admission raise concern for small bowel obstruction with the dilation of small bowel
loops and air-fluid level but there was also large colonic fecal burden especially in the cecum which is distended up to 7.5 cm. Furthermore there is distention of the appendix measuring up to 7.7 mm.
Seen by GI and surgery. He was put on a bowel regimen. He was treated conservatively and symptoms quickly improved.
His abdominal x-ray showed passage of contrast into the colon. It was felt abdominal pain and distention was likely secondary to acute constipation which may have resulted in in his symptoms and as well as secondary appendiceal dilatation and there
is no strong clinical signs supportive of acute appendicitis. Antibiotics were kept on hold.
Today he had no abdominal pain and had good response to milk of molasses enema. His bowel regimen was uptitrated to MiraLAX twice a day and senna was moderate before bedtime.
He was tolerating diet today.
He was afebrile. Pulse was 54, blood pressure 128/74. Abdomen was soft without tenderness.
He was deemed stable for discharge home today.
Portions of this chart may have been created with voice recognition software. Occasional wrong word or 'sound alike' substitutions may have occurred due to the inherent limitations of voice recognition software.
Consultants on board:
General Surgery-Freddie Hunter
GI-Malou Bañuelos
Discharge Plan
-
Patient Disposition: Home (Routine Discharge)
Discharge Diagnosis/Procedures: Constipation
Diet: Regular
Activity: As tolerated
Driving Restrictions: As prior to admission
Referrals:
Krish Walters MD [Family Provider, [facility]] - in less than 1 week
Prescriptions:
New
senna 8.6 mg capsule
8.6 mg PO HS Qty: 30 0RF
Continued
methylphenidate HCl 27 mg Tablet Extended Release 24hr
27 mg PO DAILY
Patient Comments:
06/01/2024: last filled 06/01/24, 30 tabs for 30 days from [id number]
melatonin 3 mg Tablet
3 mg PO HS PRN (Reason: sleep)
docusate sodium [Colace] 100 mg Capsule
100 mg PO DAILY
Changed
polyethylene glycol 3350 [Miralax] 17 gram Powder In Packet
17 g PO BID Qty: 60 0RF
Discharge Orders:
Discharge Patient (As Directed); Ordered 05/11/25
Ordered By: Davey Nielson
Discharge Date and Time
Discharge Date/Time: 05/11/25 14:02
Print Language: KAZAKH
== END 2025-05-11 14:02 | disposition home or self-care (01) | DRG 392 ==
LOC: 2 SOUTH 22:18
PROVIDERS: ADMITTING PHYSICIAN Internal Medicine; ATTENDING PHYSICIAN Internal Medicine; EMERGENCY PHYSICIAN Emergency Medicine; FAMILY PHYSICIAN Family Medicine; OTHER PHYSICIAN Internal Medicine Gastroenterology; OTHER PHYSICIAN Surgery
DX: K59.00 Constipation, unspecified (principal); R13.10 Dysphagia, unspecified; K38.0 Hyperplasia of appendix; Z87.891 Personal history of nicotine dependence; Z85.038 Personal history of other malignant neoplasm of large intestine; Z90.49 Acquired absence of other specified parts of digestive tract; Z79.899 Other long term (current) drug therapy
CPT/HCPCS: 74019; 74022; 74177; 80048; 80053; 85025; 85027; 90662; 96361; 96374; 96375; 99285; G0008; Q9967

== ENCOUNTER 2025-06-26 10:12 | Inpatient (IN) | payer OTHER, SELFPAY ==
[2025-05-31 08:56] LABS: Hematocrit 44.1 % (39.0-52.0); Hemoglobin 14.8 g/dL (13.0-18.0); Mean Corp Hgb Conc. 33.6 g/dL (33.0-37.0); Mean Corpuscular Volume 90.7 fL (80.0-94.0); Platelet Count 215 10^3/uL (130-400); Red Cell Dist. Width 12.3 % (11.5-14.5)
[2025-05-31 09:55] LABS: ALT (SGPT) 29 U/L (0-50); AST (SGOT) 40 U/L (17-59); Albumin 4.7 g/dl (3.5-5.0); Alkaline Phosphatase 67 U/L (38-126); Blood Urea Nitrogen 25 mg/dl (9-20); Calcium 9.7 mg/dl (8.4-10.2); Carbon Dioxide 30 mmol/L (22-30); Chloride 103 mmol/L (98-107); Glucose 97 mg/dl (70-99); Potassium 4.4 mmol/L (3.5-5.1); Sodium 139 mmol/L (135-145); Total Protein 7.0 g/dl (6.3-8.2); eGFR 54.75
[2025-05-31 14:08] VITALS: BMI 23.7
[2025-06-21] VITALS (15 sets, daily range): BP systolic 0–142; BP diastolic 61–79; BMI 23.7
[2025-06-21] MEDS: TYLENOL 1000 MG PO (10:04)
[2025-06-21] MEDS: NORMOSOL-R/PLASMALYTE-A 1000 IV ×2 (10:06→16:30)
--- NOTE | 2025-06-21 13:22 | W.IMMPOSTOP ---
Addendum entered and electronically signed by Freddie Yanez MD 06/22/25 09:14:
Update/Correction:
Pre-op Diagnosis: Recurrent ventral incisional hernia
Post-op Diagnosis: Recurrent ventral incisional hernia
Procedure Performed: Open recurrent ventral incisional hernia repair with mesh (retrorectus), lysis of adhesions
Original Note:
Surgical Immed Post Op Note
-
Primary Surgeon: Renata
Assisting Surgeon: RENEA Wong
Pre-op Diagnosis: Ventral incisional hernia
Post-op Diagnosis: Ventral incisional hernia
Procedure Performed: Open ventral incisional hernia repair with mesh (retrorectus), lysis of adhesions
Anesthesia Type: General
Specimen / Cultures: None
Estimated Blood Loss: 7 cc
Complications: None
Operative Findings:
1. Ventral incisional hernia with main defect 2.5 x 2 cm, two to three smaller < 1 cm romanian cheese defects at cranial most aspect of prior midline incision
2. MARYCRUZ involving omental adhesions along midline taken down, single band adhesions along midline, filmy adhesions from sigmoid to TI
3. Retrorectus repair with primary closure of posterior sheath with 2-0 PDS Stratafix and anterior sheath with #1 PDS Stratafix symmetric, Bard soft 20 x 15 mesh
4. 19 Fr Corbin drain into retrorectus space
[2025-06-21] MEDS: DILAUDID 0.5 MG IV ×5 (14:15→23:35)
[2025-06-21] MEDS: DILAUDID 0.25 MG IV (14:49)
[2025-06-21] MEDS: TYLENOL 650 MG PO ×2 (17:37→22:07)
--- NOTE | 2025-06-21 18:05 | PTCARENOTE ---
Received patient from PACU AAOx3. NPO with IVF infusing. Pt oriented to room. Pt complained of abdominal Incisional pain. Medicated with Dilaudid IV with relief. Made patient comfortable. Cont to assess patient status.
--- NOTE | 2025-06-21 19:42 | PTCARENOTE ---
Pt unable to void post-op OR. Pt's bladder scan is 462ml. Pt mentioned having problems in past voiding after surgery. 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
[2025-06-22] MEDS: TYLENOL PO ×3 (00:11→23:41)
[2025-06-22] MEDS: NORMOSOL-R/PLASMALYTE-A 1000 IV ×2 (00:23→10:08)
[2025-06-22 03:00] VITALS: BP 115/64
[2025-06-22] MEDS: TYLENOL 650 MG PO ×4 (03:33→16:22)
[2025-06-22] MEDS: DILAUDID 0.5 MG IV ×6 (03:34→23:33)
[2025-06-22 07:20] VITALS: BP 118/63
[2025-06-22 07:45] LABS: Hematocrit 39.1 % (39.0-52.0); Hemoglobin 12.7 g/dL (13.0-18.0); Mean Corp Hgb Conc. 32.5 g/dL (33.0-37.0); Mean Corpuscular Volume 95.4 fL (80.0-94.0); Platelet Count 167 10^3/uL (130-400); Red Cell Dist. Width 12.5 % (11.5-14.5)
[2025-06-22 07:49] LABS: Blood Urea Nitrogen 17 mg/dl (9-20); Calcium 8.5 mg/dl (8.4-10.2); Carbon Dioxide 30 mmol/L (22-30); Chloride 105 mmol/L (98-107); Estimated Creatinine Clearance 62 ml/min; Glucose 94 mg/dl (70-99); Potassium 4.1 mmol/L (3.5-5.1); Sodium 138 mmol/L (135-145); eGFR > 60.00
[2025-06-22] MEDS: PROTONIX IV 40 MG IV (07:57)
[2025-06-22] MEDS: NSS (PRESERVATIVE FREE) 10 ML IV (07:57)
[2025-06-22] MEDS: FLUSH (NSS) 1 FLUSH IV ×3 (07:59→16:58)
--- NOTE | 2025-06-22 09:06 | W.PN.GS2 ---
Today's Communication / Plan
-
-- Trial of clears
-- OOB/ambulate
Assessment / Plan
-
Patient is a 70 yo M POD#1 s/p open recurrent ventral incisional hernia with mesh and MARYCRUZ
AVSS
Labs notable for normal WBC, mild anemia (due to acute blood loss and dilution), normal platelets, normal electrolytes and renal function
Recovering well overall. No postoperative concerns at this point in time. Will need to monitor closely for dietary tolerance given his prior issues with constipation and bowel obstructions. Will trial clear liquids this morning and monitor
symptoms.
-- Trial of clears
-- IVF
-- Pain control: Tylenol, Toradol, Oxycodone
-- Home meds as appropriate
-- DVT: Lovenox
-- GI: PPI
-- OOB/ambulate
Subjective Data
-
Date of Service: June 22, 2025
Reports abdominal soreness. No nausea or vomiting. No flatus or BM. Minimal ambulation. Voiding.
Objective Data
-
Intake and Output
06/21/25 06/22/25 06/23/25
06:59 06:59 06:59
Intake Total 550 / 550
Output Total 1440 / 1440
Balance -890 / -890
Intake:
IV fluids (Total) 550 / 550
Normosol 550 / 550
Output:
Drain Output (Total) 90 / 90
Right Abdomen Melvin-Gaspar A 90 / 90
Urine, Voided 50 / 50
Straight cath output 1300 / 1300
Vital Signs
Temp Pulse Resp BP Pulse Ox
97.9 F 57 16 118/63 95
06/22/25 07:20 06/22/25 07:20 06/22/25 07:20 06/22/25 07:20 06/22/25 07:20
Lab Results
06/22/25 06:52
06/22/25 06:52
Calcium 8.5 mg/dl (8.4-10.2) 06/22/25 06:52
Total Bilirubin 0.8 mg/dl (0.2-1.3) 05/31/25 08:05
AST 40 U/L (17-59) 05/31/25 08:05
ALT 29 U/L (0-50) 05/31/25 08:05
Alkaline Phosphatase 67 U/L (38-126) 05/31/25 08:05
Total Protein 7.0 g/dl (6.3-8.2) 05/31/25 08:05
Albumin 4.7 g/dl (3.5-5.0) 05/31/25 08:05
Physical Exam
-
Gen: NAD
Abd: soft, mild/moderate expected tenderness, mild distension, non-peritoneal, binder in place, dressing c/d/i, ROSAMARIA minimal serosang
Patient has a callejas catheter: No
Patient has a central line: No
--- NOTE | 2025-06-22 11:57 | CM ---
IA completed. Pt is independent with ADLs and IADLs. Lives in 3 story home with his daughter. There are 8 steps at the entrance. Full BR is on the 2nd floor. There are 18 steps to the second floor. NO hx of DME, home O2, HH or SNF. No insecurities
identified. Confirmed PCP, Rx, insurance and drug coverage.
PCP: Krish Walters
RX: [facility]
POD 1; pain management ongoing, has needed to be straight-cathed X 2
Pt has requested assistance with setting up an [employer] supported meal plan post-op. CM spoke to [employer] Customer service and requested this service. the patient will have a $0 copay for 14 meals over a 7 day period of time.
CM needs to call [employer] once a discharge date is known and make the referral Phone number [phone]
Plan: Home with meal plan from [employer].
.
[2025-06-22] MEDS: ROXICODONE 5 MG PO (14:09)
[2025-06-22 15:15] VITALS: BP 113/73
--- NOTE | 2025-06-22 16:51 | PTCARENOTE ---
Pt AAO x3, PABLO well, ambulator yin room/sun, suyz well. VSS. On room air- pulseox 95%. Abd soft, tender, pt c/o generalized abd discomfort- states minimal effect from IV and PO pain meds. Dr. Yanez notified. Suzy clear liquid diet. Voiding
mod amts clear yellow urine in urinal. Abd dsg D/I; ROSAMARIA drain P/I serosanguinous fluid; abd binder in place. IVF's dc'd as ordered. Will continue to monitor.
[2025-06-22] MEDS: TORADOL 10 MG IV (16:56)
[2025-06-22] MEDS: LOVENOX 40 MG SC (18:02)
[2025-06-22 23:14] VITALS: BP 123/76
[2025-06-23] MEDS: TORADOL 10 MG IV ×3 (02:09→18:07)
[2025-06-23] MEDS: TYLENOL PO ×5 (04:09→21:02)
[2025-06-23] MEDS: DILAUDID 0.5 MG IV ×4 (04:20→21:02)
[2025-06-23 07:30] VITALS: BP 123/70
[2025-06-23] MEDS: NSS (PRESERVATIVE FREE) 10 ML IV (08:06)
[2025-06-23] MEDS: PROTONIX IV 40 MG IV (08:06)
[2025-06-23 08:15] LABS: Hematocrit 41.9 % (39.0-52.0); Hemoglobin 13.4 g/dL (13.0-18.0); Mean Corp Hgb Conc. 32.0 g/dL (33.0-37.0); Mean Corpuscular Volume 95.7 fL (80.0-94.0); Platelet Count 171 10^3/uL (130-400); Red Cell Dist. Width 12.5 % (11.5-14.5)
[2025-06-23 08:56] LABS: Blood Urea Nitrogen 17 mg/dl (9-20); Calcium 9.0 mg/dl (8.4-10.2); Carbon Dioxide 32 mmol/L (22-30); Chloride 100 mmol/L (98-107); Estimated Creatinine Clearance 57 ml/min; Glucose 84 mg/dl (70-99); Potassium 4.4 mmol/L (3.5-5.1); Sodium 133 mmol/L (135-145); eGFR 59.47
--- NOTE | 2025-06-23 09:15 | W.PN.GS2 ---
Today's Communication / Plan
-
-- Trial of fulls
-- Miralax
Assessment / Plan
-
Patient is a 70 yo M POD#2 s/p open recurrent ventral incisional hernia with mesh and MARYCRUZ
AVSS
Labs notable for normal WBC, mild anemia (due to acute blood loss and dilution), normal platelets, normal electrolytes and renal function
Recovering well overall. No postoperative concerns at this point in time. Will need to monitor closely for dietary tolerance given his prior issues with constipation and bowel obstructions. Will trial clear liquids this morning and monitor
symptoms.
-- Trial of fulls
-- DC IVF
-- Miralax
-- Pain control: Tylenol, Toradol, Oxycodone
-- Home meds as appropriate
-- DVT: Lovenox
-- GI: PPI
-- OOB/ambulate
Subjective Data
-
Date of Service: June 23, 2025
No major complaints. No nausea or vomiting. Reports significant abdominal pain, though slightly improved from yesterday and with the addition of Toradol. No flatus or BM. Ambulating. Voiding. Afebrile.
Objective Data
-
Intake and Output
06/22/25 06/23/25 06/24/25
06:59 06:59 06:59
Intake Total 550 / 550 2610 / 2610
Output Total 1440 / 1440 1090 / 1090
Balance -890 / -890 1520 / 1520
Intake:
Oral fluids 1560 / 1560
IV fluids (Total) 550 / 550 1050 / 1050
Normosol 550 / 550
Output:
Drain Output (Total) 90 / 90 90 / 90
Right Abdomen Melvin-Gaspar A 90 / 90 90 / 90
Urine, Voided 50 / 50 1000 / 1000
Straight cath output 1300 / 1300
Other:
Number of approximated MODERATE 3
amounts of urine
Vital Signs
Temp Pulse Resp BP Pulse Ox
98.3 F 53 16 123/70 94
06/23/25 07:30 06/23/25 07:30 06/23/25 07:30 06/23/25 07:30 06/23/25 07:30
Lab Results
06/23/25 07:53
06/23/25 07:53
Calcium 9.0 mg/dl (8.4-10.2) 06/23/25 07:53
Total Bilirubin 0.8 mg/dl (0.2-1.3) 05/31/25 08:05
AST 40 U/L (17-59) 05/31/25 08:05
ALT 29 U/L (0-50) 05/31/25 08:05
Alkaline Phosphatase 67 U/L (38-126) 05/31/25 08:05
Total Protein 7.0 g/dl (6.3-8.2) 05/31/25 08:05
Albumin 4.7 g/dl (3.5-5.0) 05/31/25 08:05
Physical Exam
-
Gen: NAD
Abd: soft, tenderness to palpation, ND, non-peritoneal, incision c/s/i - no erythema, ecchymosis or drainage, ROSAMARIA serosang
Patient has a callejas catheter: No
Patient has a central line: No
[2025-06-23] MEDS: MIRALAX 17 GRAMS PO (10:45)
--- NOTE | 2025-06-23 14:07 | CM ---
Pt has requested assistance with setting up an [employer] supported meal plan post-op. CM spoke to [facility] Customer service and requested this service. the patient will have a $0 copay for 14 meals over a 7 day period of time.
CM needs to call [facility] once a discharge date is known and make the referral to initiate delivery. Phone number [phone]
Pt continues to have pain.
Plan: DC to home with meal plan initiated.
[2025-06-23 15:15] VITALS: BP 136/74
[2025-06-23] MEDS: LOVENOX 40 MG SC (18:00)
[2025-06-23 23:29] VITALS: BP 140/79
[2025-06-24] MEDS: MYLICON 80 MG PO (00:10)
[2025-06-24] MEDS: DILAUDID 0.5 MG IV ×8 (00:10→22:00)
[2025-06-24] MEDS: TYLENOL PO ×6 (00:45→21:07)
[2025-06-24 07:50] VITALS: BP 144/93
--- NOTE | 2025-06-24 09:03 | W.PN.GS2 ---
Today's Communication / Plan
-
-- Sips for comfort
-- Low dose mIVF
-- OOB/ambulate
-- Labs for tomorrow
Assessment / Plan
-
Patient is a 70 yo M POD#3 s/p open recurrent ventral incisional hernia with mesh and MARYCRUZ
AVSS
No new labs
Issues with expected ileus given prior history, bowel lysis and complexity of procedure. Bowel rest and ambulation.
-- Sips for comfort
-- Low dose mIVF
-- Miralax
-- Pain control: Tylenol, Toradol, Oxycodone, IV Dilaudid PRN
-- Home meds as appropriate
-- DVT: Lovenox
-- GI: PPI
-- OOB/ambulate
Subjective Data
-
Date of Service: June 24, 2025
Issues with abdominal distension and burping. Starting to pass flatus, no BM. No nausea or emesis. Ambulating. Voiding.
Objective Data
-
Intake and Output
06/23/25 06/24/25 06/25/25
06:59 06:59 06:59
Intake Total 2610 / 2610 1740 / 1740
Output Total 1090 / 1090 225 / 225
Balance 1520 / 1520 1515 / 1515
Intake:
Oral fluids 1560 / 1560 1740 / 1740
IV fluids (Total) 1050 / 1050
Output:
Drain Output (Total) 90 / 90 45 / 45
Right Abdomen Melvin-Gaspar A 90 / 90 45 / 45
Urine, Voided 1000 / 1000 180 / 180
Other:
Number of approximated MODERATE 3 2
amounts of urine
Vital Signs
Temp Pulse Resp BP Pulse Ox
98.3 F 61 16 144/93 93
06/24/25 07:50 06/24/25 07:50 06/24/25 07:50 06/24/25 07:50 06/24/25 07:50
Lab Results
06/23/25 07:53
06/23/25 07:53
Calcium 9.0 mg/dl (8.4-10.2) 06/23/25 07:53
Total Bilirubin 0.8 mg/dl (0.2-1.3) 05/31/25 08:05
AST 40 U/L (17-59) 05/31/25 08:05
ALT 29 U/L (0-50) 05/31/25 08:05
Alkaline Phosphatase 67 U/L (38-126) 05/31/25 08:05
Total Protein 7.0 g/dl (6.3-8.2) 05/31/25 08:05
Albumin 4.7 g/dl (3.5-5.0) 05/31/25 08:05
Physical Exam
-
Gen: NAD
Abd: soft, tender to palpation, distended, tympanitic, non-peritoneal, midline c/d/i, ROSAMARIA serosang
Patient has a callejas catheter: No
Patient has a central line: No
[2025-06-24] MEDS: MIRALAX PO ×2 (09:07→09:19)
[2025-06-24] MEDS: NSS (PRESERVATIVE FREE) 10 ML IV (09:07)
[2025-06-24] MEDS: PROTONIX IV 40 MG IV (09:07)
[2025-06-24] MEDS: NSS 1000 IV (09:09)
[2025-06-24] MEDS: TORADOL 10 MG IV ×2 (09:21→17:14)
[2025-06-24 15:37] VITALS: BP 136/76
[2025-06-24] MEDS: LOVENOX 40 MG SC (17:10)
[2025-06-24 23:08] VITALS: BP 133/77
[2025-06-25] MEDS: DILAUDID 0.5 MG IV ×6 (01:32→22:31)
[2025-06-25] MEDS: TYLENOL PO ×6 (03:43→21:28)
[2025-06-25] MEDS: NSS 1000 IV (04:25)
[2025-06-25 06:58] LABS: Hematocrit 37.8 % (39.0-52.0); Hemoglobin 12.4 g/dL (13.0-18.0); Mean Corp Hgb Conc. 32.8 g/dL (33.0-37.0); Mean Corpuscular Volume 95.0 fL (80.0-94.0); Platelet Count 169 10^3/uL (130-400); Red Cell Dist. Width 11.9 % (11.5-14.5)
[2025-06-25 07:10] VITALS: BP 125/83
[2025-06-25 07:21] LABS: Blood Urea Nitrogen 21 mg/dl (9-20); Calcium 8.7 mg/dl (8.4-10.2); Carbon Dioxide 27 mmol/L (22-30); Chloride 105 mmol/L (98-107); Estimated Creatinine Clearance 62 ml/min; Glucose 72 mg/dl (70-99); Potassium 3.9 mmol/L (3.5-5.1); Sodium 135 mmol/L (135-145); eGFR > 60.00
[2025-06-25] MEDS: ROXICODONE 5 MG PO ×2 (08:55→14:00)
[2025-06-25] MEDS: MIRALAX PO (08:55)
[2025-06-25] MEDS: PROTONIX IV 40 MG IV (08:56)
[2025-06-25] MEDS: NSS (PRESERVATIVE FREE) 10 ML IV (08:56)
--- NOTE | 2025-06-25 09:06 | W.PN.GS2 ---
Today's Communication / Plan
-
-- Fulls
-- DC IVF
-- Miralax
Assessment / Plan
-
Patient is a 70 yo M POD#4 s/p open recurrent ventral incisional hernia with mesh and MARYCRUZ
AVSS
Labs notable for reactive leukopenia, stable Hb, electrolytes and renal function OK
Issues with expected ileus given prior history, bowel lysis and complexity of procedure; improved over the past 12-24 hours.
-- Fulls
-- DC IVF
-- Miralax
-- Pain control: Tylenol, Toradol, Oxycodone, IV Dilaudid PRN
-- Home meds as appropriate
-- DVT: Lovenox
-- GI: PPI
-- OOB/ambulate
Subjective Data
-
Date of Service: June 25, 2025
Feels improved - less abdominal pain and discomfort. No nausea or vomiting, 2 loose bowel movements overnight, continues to pass flatus. No fevers or chills.
Objective Data
-
Intake and Output
06/24/25 06/25/25 06/26/25
06:59 06:59 06:59
Intake Total 1740 / 1740 500 / 500
Output Total 225 / 225 30 / 30
Balance 1515 / 1515 470 / 470
Intake:
Oral fluids 1740 / 1740 500 / 500
Output:
Drain Output (Total) 45 / 45 30 / 30
Right Abdomen Melvin-Gaspar A 45 / 45 30 / 30
Urine, Voided 180 / 180
Other:
Number of approximated MODERATE 2 2
amounts of urine
Vital Signs
Temp Pulse Resp BP Pulse Ox
97.8 F 62 18 125/83 94
06/25/25 07:10 06/25/25 07:10 06/25/25 07:10 06/25/25 07:10 06/25/25 07:10
Lab Results
06/25/25 05:50
06/25/25 05:50
Calcium 8.7 mg/dl (8.4-10.2) 06/25/25 05:50
Total Bilirubin 0.8 mg/dl (0.2-1.3) 05/31/25 08:05
AST 40 U/L (17-59) 05/31/25 08:05
ALT 29 U/L (0-50) 05/31/25 08:05
Alkaline Phosphatase 67 U/L (38-126) 05/31/25 08:05
Total Protein 7.0 g/dl (6.3-8.2) 05/31/25 08:05
Albumin 4.7 g/dl (3.5-5.0) 05/31/25 08:05
Physical Exam
-
Gen: NAD
Abd: soft, mild tenderness, less distended, non-peritoneal, incision c/d/i - no erythema, ecchymosis or drainage, ROSAMARIA serosang, minimal output, binder replaced
Patient has a callejas catheter: No
Patient has a central line: No
[2025-06-25] MEDS: TORADOL 10 MG IV ×2 (10:36→18:31)
[2025-06-25 15:22] VITALS: BP 114/76
[2025-06-25] MEDS: LOVENOX 40 MG SC (17:11)
[2025-06-25 23:12] VITALS: BP 126/74
[2025-06-26] MEDS: TYLENOL PO ×6 (00:02→20:59)
[2025-06-26] MEDS: TORADOL 10 MG IV (01:47)
[2025-06-26] MEDS: DILAUDID 0.5 MG IV ×4 (04:44→23:44)
[2025-06-26 07:15] VITALS: BP 136/76
[2025-06-26] MEDS: PROTONIX IV 40 MG IV (08:30)
[2025-06-26] MEDS: NSS (PRESERVATIVE FREE) 10 ML IV (08:30)
[2025-06-26] MEDS: MIRALAX PO (08:33)
--- NOTE | 2025-06-26 10:34 | W.PN.GS2 ---
Today's Communication / Plan
-
pain management
dispo planning
Assessment / Plan
-
Patient is a 70 yo M POD#5 s/p open recurrent ventral incisional hernia with mesh and MARYCRUZ
AVSS
ROSAMARIA outputs not recorded, per pt 30ml was emptied last noc and 10ml this am was passed off in report by nursing
Ileus improving/resolving
Continues with IV analgesics, encouraged trial of PO analgesics today prior to discharge to ensure effectiveness
Plan:
-- LRD
-- Miralax
-- Pain control: Tylenol, Toradol, Oxycodone, IV Dilaudid PRN
-- Home meds as appropriate
-- DVT: Lovenox
-- GI: PPI
-- OOB/ambulate
-- C/W ROSAMARIA, keep in place until outputs near 20-30ml over a 24h period. May need to leave in placed upon discharge.
Tentative d/c later today pending pain control and diet tolerance
Subjective Data
-
Date of Service: June 26, 2025
Pt seen and examined at bedside with Dr. Heard. Aparna n/v. Tolerating diet thus far. BM's yesterday, none today. Continues to pass flatus. Pain improving overall. Ambulating in hallways.
Objective Data
-
Intake and Output
06/25/25 06/26/25 06/27/25
06:59 06:59 06:59
Intake Total 500 / 500 1235 / 1235
Output Total 30 / 30
Balance 470 / 470 1235 / 1235
Intake:
Oral fluids 500 / 500 1200 / 1200
Amount instilled into Drain (
Total)
Right Abdomen Melvin-Gaspar A 35 / 35
Output:
Drain Output (Total) 30 / 30
Right Abdomen Melvin-Gaspar A 30 / 30
Other:
Number of approximated MODERATE 2 2
amounts of urine
Vital Signs
Temp Pulse Resp BP Pulse Ox
98.2 F 47 16 136/76 94
06/26/25 07:15 06/26/25 07:15 06/26/25 07:15 06/26/25 07:15 06/26/25 07:15
Lab Results
06/25/25 05:50
06/25/25 05:50
Calcium 8.7 mg/dl (8.4-10.2) 06/25/25 05:50
Total Bilirubin 0.8 mg/dl (0.2-1.3) 05/31/25 08:05
AST 40 U/L (17-59) 05/31/25 08:05
ALT 29 U/L (0-50) 05/31/25 08:05
Alkaline Phosphatase 67 U/L (38-126) 05/31/25 08:05
Total Protein 7.0 g/dl (6.3-8.2) 05/31/25 08:05
Albumin 4.7 g/dl (3.5-5.0) 05/31/25 08:05
Physical Exam
-
Gen: NAD
Abd: soft, mild tenderness, nd, non-peritoneal, incision c/d/i - no erythema, ecchymosis or drainage, ROSAMARIA serosang, minimal output, binder replaced
Patient has a callejas catheter: No
Patient has a central line: No
[2025-06-26] MEDS: ROXICODONE 5 MG PO ×3 (11:46→20:53)
[2025-06-26] MEDS: MIRALAX 17 GRAMS PO ×2 (11:50→20:25)
[2025-06-26 15:18] VITALS: BP 138/83
[2025-06-26] MEDS: LOVENOX 40 MG SC (17:35)
--- NOTE | 2025-06-26 17:35 | CM ---
Pain management ongoing. IV pain med still required. Advancing diet. Possible DC tomorrow. Will need [employer] meal plan initiated upon discharge
Plan: Discharge home with [employer] meal plan
[2025-06-26] MEDS: MOTRIN 400 MG PO (20:53)
[2025-06-26 23:19] VITALS: BP 131/78
[2025-06-27] MEDS: TYLENOL PO ×4 (00:47→12:00)
[2025-06-27] MEDS: ROXICODONE 5 MG PO ×2 (06:08→12:13)
[2025-06-27] MEDS: MOTRIN 400 MG PO ×2 (06:10→12:13)
[2025-06-27 07:00] VITALS: BP 153/87
[2025-06-27] MEDS: PROTONIX IV 40 MG IV (08:31)
[2025-06-27] MEDS: NSS (PRESERVATIVE FREE) 10 ML IV (08:31)
[2025-06-27] MEDS: MIRALAX 17 GRAMS PO (08:31)
--- NOTE | 2025-06-27 09:13 | W.PN.GS2 ---
Today's Communication / Plan
-
-- DC
Assessment / Plan
-
Patient is a 70 yo M POD#6 s/p open recurrent ventral incisional hernia with mesh and MARYCRUZ
AVSS
ROSAMARIA outputs minimal, removed
Ileus resolved
Pain well controlled, tolerating diet, clear for DC
Plan:
-- LRD
-- Miralax home bowel meds
-- Pain control: Tylenol, Toradol, Oxycodone, IV Dilaudid PRN
-- Home meds as appropriate
-- DVT: Lovenox
-- GI: PPI
-- OOB/ambulate
-- ROSAMARIA removed
Tentative d/c later today pending pain control and diet tolerance
Subjective Data
-
Date of Service: June 27, 2025
Feels good, no complaints. Pain well-controlled. Ambulating. Voiding. Positive bowel function.
Objective Data
-
Intake and Output
06/26/25 06/27/25 06/28/25
06:59 06:59 06:59
Intake Total 1235 / 1235 1460 / 1460
Output Total
Balance 1235 / 1235 1450 / 1450
Intake:
Oral fluids 1200 / 1200 1440 / 1440
Amount instilled into Drain ( 35 / 35 20 / 20
Total)
Right Abdomen Melvin-Gaspar A 35 / 35 20 / 20
Output:
Drain Output (Total)
Right Abdomen Melvin-Gaspar A
Other:
Number of approximated MODERATE 2 2
amounts of urine
Vital Signs
Temp Pulse Resp BP Pulse Ox
99.3 F 62 12 153/87 95
06/27/25 07:00 06/27/25 07:00 06/27/25 07:00 06/27/25 07:00 06/27/25 07:00
Lab Results
06/25/25 05:50
06/25/25 05:50
Calcium 8.7 mg/dl (8.4-10.2) 06/25/25 05:50
Total Bilirubin 0.8 mg/dl (0.2-1.3) 05/31/25 08:05
AST 40 U/L (17-59) 05/31/25 08:05
ALT 29 U/L (0-50) 05/31/25 08:05
Alkaline Phosphatase 67 U/L (38-126) 05/31/25 08:05
Total Protein 7.0 g/dl (6.3-8.2) 05/31/25 08:05
Albumin 4.7 g/dl (3.5-5.0) 05/31/25 08:05
Physical Exam
-
Gen: NAD
Abd: soft, mild tenderness, ND, non-peritoneal, incision c/d/i - no erythema, ecchymosis or drainage, ROSAMARIA serosang
Patient has a callejas catheter: No
Patient has a central line: No
--- NOTE | 2025-06-27 09:18 | W.DS.TRANS ---
DC Summary - Proposal Editor
-
Discharge Instructions:
Sleep Apnea Risk Low
Discharge Diagnosis/Procedures Recurrent ventral incisional hernia repair
Diet As tolerated
Activity No strenuous activity
Additional Activity Do not lift over 15lbs for the next 4-6 weeks
Driving Restrictions Wait until comfortable twisting/off narcotics
Bathing Restrictions OK to Shower
Wound Care Keep incision clean and dry. Steri strips will
fall off on their own. Wear abdominal binder for
support for the next 2-3 weeks. Use gauze pads
to prevent chafing on incision
Instructions:
Stand-Alone Forms:
Changes to Home Medications: Yes
Discharge Medications:
DC Medications w/original date entered in [employer]
melatonin 3 mg tablet 3 mg PO HS sleep 05/10/25
polyethylene glycol 3350 17 gram oral powder packet (Miralax) 17 g PO BID Gastrointestinal Issue #60 ea 05/11/25
albuterol sulfate 90 mcg/actuation aerosol inhaler 2 puff inhalation PRN PRN SOB, Wheezes 06/14/25
docusate sodium 50 mg capsule 50 mg PO HS stool softener 06/14/25
ibuprofen 200 mg tablet 400 mg PO Q6H PRN Pain 06/14/25
methylphenidate HCl 27 mg tablet,extended release 24 hr (Concerta) 27 mg PO DAILY ADD 06/14/25
acetaminophen 325 mg tablet 650 mg (2 x 325 mg) PO Q4HPRN PRN mild pain #1 tab 06/27/25
oxycodone 5 mg tablet 5 mg PO Q4HPRN PRN breakthrough/severe pain #10 tabs 06/27/25
sennosides 8.6 mg capsule (senna) 8.6 mg PO HS CONNSTIPATION 06/27/25
Home Medication Changes
Pending Results: No
--- NOTE | 2025-06-27 15:42 | CM ---
Pt discharged to home. CM unable to initiate meal plan after several unsuccessful attempts. Pt called [employer] also and tried for initiation- no luck either. Pt was transported home by a friend
== END 2025-06-27 14:28 | disposition home or self-care (01) | DRG 337 ==
LOC: 4 EAST ACU 10:12
PROVIDERS: Registered Nurse; ADMITTING PHYSICIAN Surgery; FAMILY PHYSICIAN Family Medicine
PROC: 0DNU0ZZ Release Omentum, Open Approach (ICD-10-PCS; 2025-06-23)
PROC: 0WUF0JZ Supplement Abdominal Wall with Synthetic Substitute, Open Approach (ICD-10-PCS; 2025-06-23)
DX: K43.2 Incisional hernia without obstruction or gangrene (principal); K66.0 Peritoneal adhesions (postprocedural) (postinfection)
CPT/HCPCS: 80048; 80053; 85027; 93005; C1781